=== PATIENT | female | born 1940 | race Caucasian/White ===

== ENCOUNTER → 2017-09-19 10:18 | Outpatient (CLI) | payer MEDICARE, BC, SELFPAY ==
--- NOTE | 2017-09-19 10:19 | STE_ITS ---
Reason For Study: Pulmonary HTN Stress Results Protocol: Carlos Protocol Maximum Predicted HR: 145 bpm Target HR: 123 bpm% Max imum Predicted HR: 103 % DurationHeart Rate Stage (mm:ss) (bpm) BPCom ment Baseline 75 130/86 No Chest Pain Carlos Protocol Stage I 3:00 12 6 160/74No Chest Pain; Mild Dyspnea Carlos Protocol Stage II 3:00 15 0 180/72No Chest Pain; Moderate Dyspnea Recovery 101 128/7 0No Chest Pain Stress Duration: 6:00 mm:ss Maximum Stress HR: 150 bpmM ETS: 7 Baseline Echocardiogram Findings The estimated ejection fraction is 65 %. Stress Echo Wall motion Data Resting WMIntermediate WMStress WM Resting Wall Motion Wall Motion Stress No regional wall motion No regional wall motion abnormalities noted. abnormalities noted. EKG Data Normal intervals are noted. The baseline ECG demonstrates normal sinus rhythm with at rate of _ beats per minute. The patient exercised according to the regular Carlos protocol for a total duration of 6:00. The maximum heart rate attained was 150 beats per minute. This was 103% of maximum predicted heart rate. The patient exercised into stage 3 of the Carlos protocol. No clinical angina was noted. Interpretation Summary The estimated ejection fraction is 65 %. Normal adequate treadmill echocardiogram. Negative for ischemia by EKG and echocardiographic criteria. No anginal symptoms noted. No arrhythmias noted. Appropriate blood pressure response to exercise. Below average exercise capacity for age. Patient developed progression of pulmonary hypertension from 42 mmHg at rest, up to 72 mmHg at peak exercise. Test terminated due to dyspnea. Final LVEF is 75%. No complications. Ordering Physician: Danyel Sands Referring Physician: Danyel Sands Performed By: Mirtha Limon, RDCS, RVT
== END ==
PROVIDERS: Family Provider Family Medicine; PCP Family Medicine; Visit Provider Internal Medicine Cardiovascular Disease
DX: I27.21 Secondary pulmonary arterial hypertension (principal); I36.1 Nonrheumatic tricuspid (valve) insufficiency; I34.0 Nonrheumatic mitral (valve) insufficiency
CPT/HCPCS: 93017; 93350

== ENCOUNTER 2017-12-10 21:18 | Observation (INO) | payer MEDICARE, BC, SELFPAY ==
[2017-12-10 21:19] VITALS: BP 180/92; PULSE 105; RESP 20; TEMP 37.5; O2SAT 98; BMI 21.4
--- NOTE | 2017-12-10 21:21 | EKG12_ITS ---
Test Reason : CP Blood Pressure : / mmHG Vent. Rate : 101 BPM Atrial Rate : 101 BPM P-R Int : 142 ms QRS Dur : 094 ms QT Int : 344 ms P-R-T Axes : 060 020 042 degrees QTc Int : 446 ms Sinus tachycardia Otherwise normal ECG Confirmed by BOB MICHELE, JASWINDER ([id number]), health editor YE LOUIS ([id number]) on 12/12/2017 2:16:38 PM Referred By: JOE Confirmed By:JASWINDER ROJAS MD
[2017-12-10 21:22] VITALS: O2SAT 96
--- NOTE | 2017-12-10 21:22 | ED.RN ---
CALLED FOR EKG PER RN REQUEST, NO OLD EKG'S IN MUSE
--- NOTE | 2017-12-10 21:32 | RAD_ITS ---
STUDY: X-RAY CHEST REASON FOR EXAM: Female, 77 years old. Chest pain TECHNIQUE: AP portable COMPARISON: None. FINDINGS: There is mild interstitial thickening in the lower lobes. There is subsegmental atelectasis or scarring at the left base.. There is no demonstrated pleural abnormality. Normal size heart. Normal mediastinum and wilner. Normal visualized pulmonary arteries. Mildly calcified aortic arch and descending thoracic aorta. Dorsal spine and shoulders demonstrate degenerative changes Normal visualized ribs, and clavicles There is no demonstrated abnormality of the visualized soft tissue structures of the upper abdomen. RAD/Chest 1 View (Portable) IMPRESSION: Minor subsegmental atelectasis or scarring at the left base Electronically Signed: Cheng Prado MD at 21:54 EDT , Service support ,
[2017-12-10 21:40] LABS: Absolute Lymphocyte Count 2.21 X10^3/ul (0.83-4.51); Absolute Neutrophil Count 10.2 X10^3/uL (2.0-7.7); Basophil# 0.07 X10^3/uL; Basophil% 0.5 % (0-1); Eosinophil# 0.33 X10^3/uL; Eosinophils% 2.2 % (0-5); Hematocrit 39.9 % (37-47); Hemoglobin 12.9 g/dl (12.0-15.0); Lymphocyte # 2.21 X10^3/ul (4.0); Mean Corp Hgb Conc 32.3 g/gl (32-36); Mean Corpuscular Hgb 30.4 pg (27.0-32.0); Mean Corpuscular Volume 94.1 fL (81-99); Mean Platelet Vol. 10.8 fl (6.2-12.0); Monocyte# 1.89 X10^3/uL; Monocyte% 12.9 % (0-10); Neutrophil # 10.18 X10^3/uL (2.7-7.7); Neutrophil % 69.3 % (47-70); Platelet Count 302 K/mm3 (150-450); RBC Distribution Width CV 12.7 % (11.6-14.6); RBC Distribution Width SD 43.4 fl (35.1-43.9); Red Blood Count 4.24 M/mm3 (4.2-5.4); White Blood Count 14.7 K/mm3 (4.4-11.0)
[2017-12-10 21:42] LABS: Differential Indicated SCAN CRITERIA MET; POSITIVE COUNT NO; POSITIVE DIFFERENTIAL YES; POSITIVE MORPHOLOGY NO
[2017-12-10 21:53] LABS: Anion Gap 5 (5-15); BUN 18 mg/dL (7-18); BUN/Creat Ratio 22.8 RATIO (10-20); Calcium,Total 9.1 mg/dL (8.5-10.1); Chloride 102 mmol/L (98-107); Creatinine, Serum 0.79 mg/dL (0.55-1.02); EST Glomerular Filtration Rate 75 mL/min (>60); Est Glom Filt Rate - Afr Amer 91 mL/min (>60); Estimated Creatinine Clearance 41.97 ml/min; Glucose 113 mg/dL (74-106); Sodium Level 139 mmol/L (136-145)
[2017-12-10 22:31] LABS: Lipase 113 U/L (73-393)
--- NOTE | 2017-12-10 22:39 | CT_ITS ---
STUDY: CTA CHEST REASON FOR EXAM: Female, 77 years old. Mid and upper chest and left shoulder pain RADIATION DOSAGE (If Supplied By Facility): CTDIvol = ( 8.59 ) mGy, DLP = ( 859.69 ) mGycm TECHNIQUE: The examination was performed with the intravenous administration of 75ml ml of Isovue 300 contrast material. Post-processing of the angiographic images was performed, with multiplanar reformation and 3D reconstruction. Individualized dose optimization techniques were used for this CT. COMPARISON: None. FINDINGS: Normal enhancement of the main pulmonary artery and right and left pulmonary arteries. Normal enhancement of the bilateral peripheral pulmonary arteries. There is no demonstrated pulmonary embolism. Normal thoracic aorta and visualized great vessels. There is no demonstrated aortic dissection. Heart is mildly enlarged and there is a small pericardial effusion. Normal mediastinum. Normal hilar regions. Normal visualized trachea and bronchi. The lungs are well expanded. There is mild generalized interstitial thickening. There is mild bibasilar atelectasis.. Normal pleura. Normal chest wall structures. Dorsal spine demonstrates moderate spondylosis Normal visualized upper abdomen. CT/CTA Chest W/WO Contrast IMPRESSION: Mild bilateral lower lobe atelectasis.. No evidence for pulmonary embolus aortic aneurysm periaortic leak or dissection Electronically Signed: Cheng Prado MD at 23:50 EDT , Service support ,
--- NOTE | 2017-12-10 22:40 | CT_ITS ---
STUDY: CT ABDOMEN AND PELVIS WITH CONTRAST REASON FOR EXAM: Female, 77 years old. Mid and upper chest and left shoulder pain. Shortness of breath. History of splenic blood clot. RADIATION DOSAGE (If Supplied By Facility): CTDIvol = ( 8.59 ) mGy, DLP = ( 859.69 ) mGycm TECHNIQUE: Transaxial images were obtained from the dome of the diaphragm to the symphysis pubis without oral contrast. 75ml ml of Isovue 370 contrast was administered. Sagittal and coronal images were reconstructed. Individualized dose optimization techniques were used for this CT. COMPARISON: April 05, 2016. MRI abdomen April 07, 2016. Chest x-ray December 10, 2017. FINDINGS: Bilateral lower lobe linear subsegmental atelectasis or fibrosis. Mild cardiomegaly. No pericardial effusion. Normal liver. Normal gallbladder and extrahepatic biliary system. Normal spleen. Previously noted low attenuation suggestive of infarction medial aspect of the spleen has resolved. Normal pancreas. Normal bilateral adrenal glands. Normal right kidney. Normal left kidney. Normal visualized stomach. Normal small intestine. Normal colon. The appendix is well visualized and appears normal. There is atherosclerotic calcification of the abdominal aorta, without a demonstrated aneurysm. Normal inferior vena cava. Normal retroperitoneum. No intra-abdominal free air. Normal urinary bladder. There is absence of the uterus consistent with a prior hysterectomy. No adnexal masses seen. Normal abdominal wall. Multilevel degenerative changes of the lumbar spine. CT/Abdomen/Pelvis W IV Cont ONLY IMPRESSION: No acute findings in the abdomen or pelvis. No evidence of bowel obstruction. Normal appendix. Resolution of previously noted splenic infarction. Mild cardiomegaly. Additional nonemergent findings as above. Electronically Signed: Zachary Velasquez MD at 0:00 EDT , Service support ,
[2017-12-10 22:41] LABS: AST(SGOT) 16 U/L (15-37); Alanine Aminotransfer ALT/SGPT 27 U/L (13-56); Alkaline Phosphatase 109 U/L (45-117); Globulin 3.8 g/dL (2.2-4.2); Protein, Total 7.8 g/dL (6.4-8.2)
--- NOTE | 2017-12-10 23:42 | ED.VISSUMM ---
- ER Visit Summary Date of Service: 12/10/17 Chief Complaint: Chest pain History of Present Illness: The patient is a 77 F who presents with chest pain. This began about 2 hours prior to presentation while at rest. She describes it as a severe pressure-like pain. She currently rates it as 6 out of 10. It is located in the left lower chest and is worse with deep inspiration. She also feels short of breath. She states 3 days ago she had palpitations which resolved and have not recurred. She is also been having some pain in the left back side of her neck down towards her shoulder over the last 3 days but is uncertain if this is related. She believes it is related to having slept wrong and that that is due to a muscular etiology. 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 No history of dysrhythmia diabetes hypertension hyperlipidemia. She is not a smoker. Physical Examination: Heart rate 105 pulse ox 96% on 2 L nasal cannula blood pressure 180/92 Moist mucous membranes Heart regular rhythm slightly tachycardic Lungs are clear Abdomen soft and nontender Extremities nontender no edema 2+ radial pulses Alert Test Results: EKG shows sinus rhythm at a rate of 101. Labs notable for white blood cell count 14.7. Glucose 113. Hepatic function lipase normal. Troponin negative. Chest x-ray shows atelectasis or scarring at the left lung base. PA of the chest shows no evidence of pulmonary embolism or aortic dissection. Lower lobe atelectasis is noted. CT of the abdomen with IV contrast shows no acute findings, resolution of splenic infarct. Emergency Department Course and Treatment: She was initially given aspirin. She continued pain and was given morphine and Zofran. She does have a white count of 14.7 and slightly tachycardic but has no pneumonia on imaging and denies infectious symptoms such as fevers cough congestion rhinorrhea. A CTA of the chest and CT the abdomen was obtained given patient's prior history of splenic infarct that was concern for possible recurrent splenic pathology or possibly lower lung pulmonary embolism. These scans are unremarkable. The patient's heart score is 3 and SAMMI risk score is 2. I do believe the patient should be admitted for further cardiac workup. Treatment Plan: [] Disposition: Admit Impression: Chest pain This note was generated with [employer] software. It may contain incorrect words, spelling, and punctuation that were not noted in review of the chart prior to signing ED Disposition - Plan for ED Patient: Chief Complaint: Chest Pain Referrals: Vimal Merida MD [Primary Care Provider] -
[2017-12-10 23:48] VITALS: BP 109/52; PULSE 85; RESP 21; O2SAT 94
[2017-12-11] VITALS (8 sets, daily range): BP systolic 102–124; BP diastolic 53–68; PULSE 87–100; RESP 16–18; TEMP 36.8–37.6; O2SAT 91–100; BMI 21.6
[2017-12-11] MEDS: Morphine 4 MG/ML Syringe IV (00:03)
[2017-12-11] MEDS: Ondansetron 4 MG/2 ML Vial IV (00:03)
--- NOTE | 2017-12-11 00:41 | PCM.HP.STD ---
Problem List (1) Chest pain Status: Acute (2) Leukocytosis Status: Acute History of Present Illness Date of Admission: 12/11/17 The patient is a 77 year old F with a significant history of splenic infarcts who presents because of progressively worsening substernal chest pain that started an hour before her presentation to the emergency department. She rates her chest pain as 6 out of 10 in severity. Her chest pain radiates to her left shoulder. She describes her chest pain as continuous pressure. Also she has had neck pain for about 1 week. But on the day of admission her neck pain worsened. Head chest pain increases with breathing. Also in the last 3 days she has noticed her heart racing. She denies any nausea or diaphoresis. [] Past Medical History Past Medical History (Chronic Problems): Chronic Problems (Last Reviewed 12/11/17 @ 00:47 by Erik Carnes MD) Aortic valve cusp abnormality (Chronic) Fine, fibrinous mobile material noted on aortic side of right coronary cusp. No fibroelastoma or vegetation noted. per BLAKE 04/07/2016 Nonrheumatic mitral (valve) insufficiency (Chronic) Non-rheumatic tricuspid valve insufficiency (Chronic) Secondary pulmonary arterial hypertension (Chronic) Pulmonary nodule (Chronic) Splenic infarct (Chronic) Medical History: Medical History (Last Reviewed 12/11/17 @ 00:47 by Erik Carnes MD) Aortic valve cusp abnormality (Chronic) Q23.8 Fine, fibrinous mobile material noted on aortic side of right coronary cusp. No fibroelastoma or vegetation noted. per BLAKE 04/07/2016 Nonrheumatic mitral (valve) insufficiency (Chronic) I34.0 Non-rheumatic tricuspid valve insufficiency (Chronic) I36.1 Secondary pulmonary arterial hypertension (Chronic) I27.21 Pulmonary nodule (Chronic) R91.1 Splenic infarct (Chronic) D73.5 Breast cancer C50.919 Allergies No Known Allergies Allergy (Verified 12/10/17 21:23) Home Medications: Ambulatory Orders Medication Instructions Recorded Calcium Carbonate [Calcium] 600 mg PO DAILY 04/05/16 Cholecalciferol (VIT D3) [Vitamin 1,000 unit PO DAILY 04/05/16 D3] Multivitamin [Daily Multiple 1 each PO DAILY 04/06/16 Vitamin] Aspirin [Aspirin, Baby] 81 mg PO DAILY@0800 #30 tab.chew 04/08/16 magnesium oxide 250 mg tablet 250 mg PO QHS tab 08/06/17 Surgical History: Surgical History (Last Reviewed 12/11/17 @ 00:48 by Erik Carnes MD) History of hysterectomy Z90.710 History of lumpectomy of left breast Z98.890 Surgical History: hysterectomy, - - lumpectemy breast cancer in 2010 in [place] Lives: Spouse/ Significant Other Smoking Status: Never smoker Tobacco Use: Non-smoker Alcohol: Rare Drugs: None - *Family History Paternal Family History: Family History (Last Reviewed 08/06/17 @ 13:42 by Linda Brock) Brother Colon cancer Sister Heart disease History Items: - - lung nodule in father. Sibling Family History: Family History (Last Reviewed 08/06/17 @ 13:42 by Linda Brock) Brother Colon cancer Sister Heart disease History Items: - - sister with pacemaker,lung cancer brother. Review of Systems Constitutional: Denies: Anorexia, Malaise Eyes: Denies: Blurred vision, Pain HEENT: Denies: Head Aches, Sinus Congestion, Sinus Drainage Cardiovascular: Reports: Chest Pain Respiratory: Denies: Cough, Shortness of breath at rest, Sputum production Gastrointestinal: Denies: Abdominal Pain, Nausea, Vomiting Genitourinary: Denies: Dysuria Musculoskeletal: Reports: Neck Pain, Shoulder Pain Skin: Denies: Rash, Wounds Neurological: Reports: Balance problems Psychiatric: Reports: Anxiety Hematologic/ Lymphatic: Denies: Easy Bruising, Easy Bleeding VTE Information - Inpt Only VTE Present on Admission: No VTE Mechan Device Prophylaxis: None VTE Pharm Prophylaxis ordered?: Yes Patient Problems: Active and Suspected Problems (Last Reviewed 12/11/17 @ 00:47 by Erik Carnes MD) Chest pain (Acute) Leukocytosis (Acute) - Physical Exam General: Alert, Oriented x3, Cooperative HEENT: Atraumatic, PERRLA, EOMI, Normocephalic Neck: Supple, No JVD, Negative Carotid Bruits Lungs: Clear to auscultation, Normal air movement Cardiovascular: Normal S1, Normal S2, Tachycardic, - - Nontender Abdomen: Bowel Sounds Present, Soft, Non Tender Extremities: No edema, Capillary Refill Less than 3 Seconds Skin: No rashes, No breakdown Musculoskeletal: No Tenderness to Palpation of Joints or Extremities Neurological: Cranial nerves II-XII grossly intact Psych/Mental Status: Anxious Vital Signs Temp Pulse Resp BP Pulse Ox 99.5 F H 91 18 120/56 L 100 12/10/17 21:19 12/11/17 00:07 12/11/17 00:07 12/11/17 00:07 12/11/17 00:07 Oxygen Flow Rate (L/min) 2 Oxygen Delivery Method Nasal Cannula Weight: 56.699 kg Body Mass Index (BMI) 21.4 Laboratory Tests Past 24 Hrs 12/10/17 12/10/17 12/10/17 21:25 21:25 21:25 WBC 14.7 H RBC 4.24 Hgb 12.9 Hct 39.9 MCV 94.1 MCH 30.4 MCHC 32.3 RDW 12.7 RDW Differential 43.4 Plt Count 302 MPV 10.8 Immature Gran % (Auto) 0.100 Neut % (Auto) 69.3 Lymph % (Auto) 15.0 L [place] % (Auto) 12.9 H Eos % (Auto) 2.2 Baso % (Auto) 0.5 Absolute Neuts (auto) 10.2 H Absolute Lymphs (auto) 2.21 Total Counted Not Reportable Differential Comment Diff Path Review May foll Sodium 139 Potassium 4.0 Chloride 102 Carbon Dioxide 32.0 Anion Gap 5 BUN 18 Creatinine 0.79 Estim Creat Clear Calc 41.97 Est GFR (MDRD) Af Amer 91 Est GFR (MDRD) Non-Af 75 BUN/Creatinine Ratio 22.8 H Glucose 113 H Calcium 9.1 Total Bilirubin 0.20 Direct Bilirubin 0.10 AST 16 ALT 27 Alkaline Phosphatase 109 Troponin I < 0.015 Total Protein 7.8 Albumin 4.0 Globulin 3.8 Lipase 12/10/17 21:25 WBC RBC Hgb Hct MCV MCH MCHC RDW RDW Differential Plt Count MPV Immature Gran % (Auto) Neut % (Auto) Lymph % (Auto) [place] % (Auto) Eos % (Auto) Baso % (Auto) Absolute Neuts (auto) Absolute Lymphs (auto) Total Counted Differential Comment Diff Path Review Sodium Potassium Chloride Carbon Dioxide Anion Gap BUN Creatinine Estim Creat Clear Calc Est GFR (MDRD) Af Amer Est GFR (MDRD) Non-Af BUN/Creatinine Ratio Glucose Calcium Total Bilirubin Direct Bilirubin AST ALT Alkaline Phosphatase Troponin I Total Protein Albumin Globulin Lipase 113 Assessment/Plan All Active Problems (Last Reviewed 12/11/17 @ 00:47 by Erik Carnes MD) Chest pain (Acute) Leukocytosis (Acute) The patient is a 77 year old F with a significant history of splenic infarcts who presents because of progressively worsening substernal chest pain that started an hour before her presentation to the emergency department. Chest pain His SAMMI score is at 2 (aspirin use, age more than 65) Because of a history of splenic infarcts CT scan of the abdomen and the chest were obtained. However both CT scan was unremarkable. Admit to PCU Due to her progressively worsening chest pain we will order nuclear stress test. Aspirin 325 mg?1 Aspirin 81 mg daily, home dose continued Morphine as needed Nitroglycerin as needed Beta-blockers ordered. Series of cardiac enzymes ordered. Leukocytosis Likely reactive Repeat CBC in a.m. DVT prophylaxis subcutaneous heparin. Code Visit Inpatient E&M: 39522 Init Hosp L2
--- NOTE | 2017-12-11 00:59 | NURSING ---
Called ED charge nurse Kenny, asked Kenny to have ED draw 2nd trop before sending to floor.
[2017-12-11] MEDS: Aspirin 81 MG TAB.CHEW 324 MG PO (02:11)
[2017-12-11 05:36] LABS: Absolute Lymphocyte Count 0.55 X10^3/ul (0.83-4.51); Basophil# 0.04 X10^3/uL; Basophil% 0.2 % (0-1); Hemoglobin 11.6 g/dl (12.0-15.0); Lymphocyte # 0.55 X10^3/ul (4.0); Lymphocyte % 2.4 % (19-41); Mean Corp Hgb Conc 33.1 g/gl (32-36); Mean Corpuscular Hgb 31.4 pg (27.0-32.0); Mean Corpuscular Volume 94.6 fL (81-99); Monocyte# 3.08 X10^3/uL; Monocyte% 13.6 % (0-10); Neutrophil # 18.95 X10^3/uL (2.7-7.7); Neutrophil % 83.5 % (47-70); Platelet Count 270 K/mm3 (150-450); RBC Distribution Width CV 12.4 % (11.6-14.6); RBC Distribution Width SD 41.6 fl (35.1-43.9); White Blood Count 22.7 K/mm3 (4.4-11.0)
[2017-12-11 05:38] LABS: International Normalized Ratio 1.1; Partial Thromboplast Time 35.4 Seconds (24.1-36.2); Prothrombin Time (Protime)PT. 14.5 SECONDS (11.7-14.9)
[2017-12-11 05:51] LABS: POSITIVE COUNT NO; POSITIVE DIFFERENTIAL YES; POSITIVE MORPHOLOGY NO
[2017-12-11 05:52] LABS: Differential Indicated SCAN CRITERIA MET
[2017-12-11 05:57] LABS: AST(SGOT) 38 U/L (15-37); Alanine Aminotransfer ALT/SGPT 44 U/L (13-56); Albumin, Serum 3.3 g/dL (3.2-5.0); Alkaline Phosphatase 95 U/L (45-117); Anion Gap 6 (5-15); BUN 18 mg/dL (7-18); BUN/Creat Ratio 24.9 RATIO (10-20); Bilirubin, Direct 0.17 mg/dL (0.00-0.30); Calcium,Total 8.5 mg/dL (8.5-10.1); Chloride 104 mmol/L (98-107); Creatinine, Serum 0.72 mg/dL (0.55-1.02); EST Glomerular Filtration Rate 83 mL/min (>60); Est Glom Filt Rate - Afr Amer 101 mL/min (>60); Estimated Creatinine Clearance 41.97 ml/min; Globulin 3.3 g/dL (2.2-4.2); Glucose 147 mg/dL (74-106); Potassium 4.5 mmol/L (3.5-5.1); Protein, Total 6.6 g/dL (6.4-8.2); Sodium Level 141 mmol/L (136-145); Thyroid Stim Hormone (TSH) 1.09 uIU/mL (0.358-3.74)
[2017-12-11] MEDS: Atorvastatin Calcium 40 MG Tablet PO (06:11)
--- NOTE | 2017-12-11 07:00 | EKG12_ITS ---
Test Reason : CP ADMIT Blood Pressure : / mmHG Vent. Rate : 094 BPM Atrial Rate : 094 BPM P-R Int : 140 ms QRS Dur : 088 ms QT Int : 362 ms P-R-T Axes : 074 029 060 degrees QTc Int : 452 ms Normal sinus rhythm Normal ECG No previous ECGs available Confirmed by BOB MICHELE, JASWINDER ([id number]), publishing editor YE LOUIS ([id number]) on 12/14/2017 1:59:41 PM Referred By: DR ALBERT Confirmed By:JASWINDER ROJAS MD
[2017-12-11] MEDS: Calcium Carbonate 500 MG Tablet PO (09:04)
[2017-12-11] MEDS: Metoprolol Tartrate 25 MG Tablet 12.5 MG PO (09:04)
[2017-12-11] MEDS: Multivitamins,Therapeutic Tablet 1 TABLET PO (09:05)
--- NOTE | 2017-12-11 09:16 | STRESSREP ---
Stress Test Report Pharmacologic myocardial perfusion stress test. 77-year-old lady with history of chest pain. Stress protocol: Resting EKG demonstrates normal sinus rhythm with a rate of 99 bpm normal intervals and noted resting blood pressure is 110/50 mmHg. 0.4 mg regadenoson was infused per usual protocol followed Intravenous saline flush injection continuous EKG monitoring was performed. The maximum heart rate attained was 114 bpm which was 78% of maximum predicted heart rate the maximum workload was 1 metabolic equivalent. At rest there were no ST or T-wave changes noted suggest ischemia peak infusion no ST or T-wave changes were noted suggest ischemia. No clinical angina was noted. Myocardial perfusion protocol. 11.2 mCi of technetium 99m sestamibi was injected at rest. 0.4 mg regadenoson was infused per usual protocol peak infusion 32.4 mCi of technetium 99m sestamibi was injected stress images were obtained stress and rest images were reconstructed and compared in the short axis vertical long horizontal long axis. Gated images were also obtained. Perfusion SPECT analysis: Review of the stress images demonstrate normal uptake of tracer noted in all areas of the myocardium. The resting images similarly demonstrate normal uptake of tracer noted in all areas of the myocardium. Gated SPECT analysis: The gated ejection fraction is noted to be hypercontractile. Conclusion: Normal pharmacologic myocardial perfusion stress test.
[2017-12-11] MEDS: Ibuprofen 600 MG Tablet PO (15:17)
[2017-12-11 15:38] LABS: Pathologist Review Reviewed
--- NOTE | 2017-12-11 16:43 | DCINST_ITS ---
- Discharge Diagnoses Current Active Problems: Current Active and Chronic Problems (Last Reviewed 12/11/17 @ 00:47 by Erik Carnes MD) Chest pain (Acute) Leukocytosis (Acute) You will use the following diet at home:: Other - Resume previous diet Your food should be the consistency of: Regular, Mechanical soft (ground) Discharge Activity: Return to Normal Activity May resume sexual activity in: No Restrictions Call your doctor if you observe: Fever of 101 or Higher, Shortness of breath, Dizziness, Fainting spells Additional Instructions: Everything was normal. the stress test is negative and your heart squeezes normally. There has been no problem with the rhythm of your heart. I think your chest discomfort came from a rib that was out of place. The pain made you feel very anxious about possibly having a heart attack and this led to tightening of the muscles in your chest and a feeling that she could not get a deep breath. This is not unusual because people are fearful that they are having a heart attack with any kind of chest pain, especially if they have had family members with heart disease. Everything looks good and the discomfort in your chest that I was able to palpate went away with adjusting the rib. I have given you a prescription for a muscle relaxer to take should this recur. It can make you sleepy so do not plan on driving or going out to you know how you react to this medication. Your white blood cell count was elevated at admission and this is likely secondary to stress because it will increase the white blood cell count. It also increases your heart rate and her blood pressure. I think you should follow up with in 5-7 days to have a repeat blood count done. If you develop fevers or shaking chills you should come back to the hospital or call Dr. Merida's office. Allergies/Adverse Reactions: Allergies No Known Allergies Allergy (Verified 12/10/17 21:23) Medications to take at Discharge Calcium Carbonate [Calcium] 600 mg PO DAILY 04/05/16 Cholecalciferol (VIT D3) [Vitamin D3] 1,000 unit PO DAILY 04/05/16 Multivitamin [Daily Multiple Vitamin] 1 each PO DAILY 04/06/16 Aspirin [Aspirin, Baby] 81 mg PO DAILY@0800 #30 tab.chew 04/08/16 magnesium oxide 250 mg tablet 250 mg PO QHS tab 08/06/17 Cyclobenzaprine [Flexeril] 5 mg PO Q8H PRN PRN #10 tab 12/11/17 The following prescriptions were given: Cyclobenzaprine [Flexeril] 5 mg PO Q8H PRN PRN #10 tab PRN Reason: muscles spasms Primary Care Physician: Vimal Merida MD [Primary Care Provider] - Please follow up with your Primary Care Physician in: 5-7 days Test Results: Test results from this visit will be discussed in further detail at your follow- up appointment, if applicable. Proposed Discharge Date: 12/11/17
--- NOTE | 2017-12-18 10:16 | PCM.DC.SUM ---
Discharge Date and Diagnosis Date of Admission: 12/11/17 Date of Discharge: 12/11/17 - Primary Discharge Diagnosis Chest pain-noncardiac Palpitations - Secondary Discharge Diagnosis Chronic Problems (Last Reviewed 12/11/17 @ 00:47 by Erik Carnes MD) Aortic valve cusp abnormality (Chronic) Fine, fibrinous mobile material noted on aortic side of right coronary cusp. No fibroelastoma or vegetation noted. per BLAKE 04/07/2016 Nonrheumatic mitral (valve) insufficiency (Chronic) Non-rheumatic tricuspid valve insufficiency (Chronic) Secondary pulmonary arterial hypertension (Chronic) Pulmonary nodule (Chronic) Splenic infarct (Chronic) Hospital Course and Treatment Imaging Results: Clinical Impression(s) from Imaging Studies Chest X-Ray 12/10/17 21:32 IMPRESSION: Minor subsegmental atelectasis or scarring at the left base Electronically Signed: Cheng Prado MD at 21:54 EDT , Service support , Chest CTA 12/10/17 22:39 IMPRESSION: Mild bilateral lower lobe atelectasis.. No evidence for pulmonary embolus aortic aneurysm periaortic leak or dissection Electronically Signed: Cheng Prado MD at 23:50 EDT , Service support , Abdomen/Pelvis CT 12/10/17 22:40 IMPRESSION: No acute findings in the abdomen or pelvis. No evidence of bowel obstruction. Normal appendix. Resolution of previously noted splenic infarction. Mild cardiomegaly. Additional nonemergent findings as above. Electronically Signed: Zachary Velasquez MD at 0:00 EDT , Service support , None Operations: None Procedures: Stress test Summary of Care Provided: The patient is a 77 year old F with a past medical history of nonrheumatic mitral valve insufficiency, nonrheumatic tricuspid valve insufficiency, aortic valve abnormality, secondary pulmonary arterial hypertension, pulmonary nodule, breast cancer and prior splenic infarct who presented to the emergency department at [facility] on 12/11/2017 complaining of chest pain. EKG in the emergency room showed sinus tachycardia with no significant ST or T-wave changes. Chest x-ray revealed possible atelectasis in the bases. CTA of the chest was negative for pulmonary emboli or arterial dissection. CT of the abdomen and pelvis showed no acute findings and there had been resolution of previously noted splenic infarction. Troponin was less than 0.015. She was admitted to the hospital and serial cardiac enzymes were negative. A pharmacologic nuclear stress test was done and was negative for ischemia. The gated ejection fraction was noted to be hypercontractile. She had no significant ectopy or dysrhythmia on telemetry. On osteopathic physical examination her pain was reproducible and she was noted to have a rib lesion. Osteopathic manipulation was performed with relief of the pain. She did have an elevation in white blood cell count however she was afebrile and asymptomatic. I suspect this is secondary to extreme anxiety with cortisol release. She was instructed to follow-up with Dr. Merida in the office in 5-7 days and have a repeat CBC. If she develops fevers or shaking chills she will come back to the emergency room or call Dr. Merida's office. Discharge Activity: Return to Normal Activity May resume sexual activity in: No Restrictions Call your doctor if you observe: Fever of 101 or Higher, Shortness of breath, Dizziness, Fainting spells Home Medications: Medications to take at Discharge Calcium Carbonate [Calcium] 600 mg PO DAILY 04/05/16 Cholecalciferol (VIT D3) [Vitamin D3] 1,000 unit PO DAILY 04/05/16 Multivitamin [Daily Multiple Vitamin] 1 each PO DAILY 04/06/16 Aspirin [Aspirin, Baby] 81 mg PO DAILY@0800 #30 tab.chew 04/08/16 magnesium oxide 250 mg tablet 250 mg PO QHS tab 08/06/17 Primary Care Physician: Vimal Merida MD [Primary Care Provider] - Please follow up with your Primary Care Physician in: 5-7 days Disposition: Home Minutes spent on discharge:: 25 Patient Condition:: Good Medical Necessity - Tobacco Use Smoking Status: Never smoker Tobacco Use: Non-smoker Meaningful Use Info Meaningful Use Diagnoses (Choose all that apply): None applicable Code Visit OBSV E&M: 98393 Observ/hosp same date L2
--- NOTE | 2017-12-18 10:25 | DS.PCM_ITS ---
Discharge Date and Diagnosis Date of Admission: 12/11/17 Date of Discharge: 12/11/17 - Primary Discharge Diagnosis Chest pain-noncardiac Palpitations - Secondary Discharge Diagnosis Chronic Problems (Last Reviewed 12/11/17 @ 00:47 by Erik Carnes MD) Aortic valve cusp abnormality (Chronic) Fine, fibrinous mobile material noted on aortic side of right coronary cusp. No fibroelastoma or vegetation noted. per BLAKE 04/07/2016 Nonrheumatic mitral (valve) insufficiency (Chronic) Non-rheumatic tricuspid valve insufficiency (Chronic) Secondary pulmonary arterial hypertension (Chronic) Pulmonary nodule (Chronic) Splenic infarct (Chronic) Hospital Course and Treatment Imaging Results: Clinical Impression(s) from Imaging Studies Chest X-Ray 12/10/17 21:32 IMPRESSION: Minor subsegmental atelectasis or scarring at the left base Electronically Signed: Cheng Prado MD at 21:54 EDT , Service support , Chest CTA 12/10/17 22:39 IMPRESSION: Mild bilateral lower lobe atelectasis.. No evidence for pulmonary embolus aortic aneurysm periaortic leak or dissection Electronically Signed: Cheng Prado MD at 23:50 EDT , Service support , Abdomen/Pelvis CT 12/10/17 22:40 IMPRESSION: No acute findings in the abdomen or pelvis. No evidence of bowel obstruction. Normal appendix. Resolution of previously noted splenic infarction. Mild cardiomegaly. Additional nonemergent findings as above. Electronically Signed: Zachary Velasquez MD at 0:00 EDT , Service support , None Operations: None Procedures: Stress test Summary of Care Provided: The patient is a 77 year old F with a past medical history of nonrheumatic mitral valve insufficiency, nonrheumatic tricuspid valve insufficiency, aortic valve abnormality, secondary pulmonary arterial hypertension, pulmonary nodule, breast cancer and prior splenic infarct who presented to the emergency department at [facility] on 12/11/2017 complaining of chest pain. EKG in the emergency room showed sinus tachycardia with no significant ST or T-wave changes. Chest x-ray revealed possible atelectasis in the bases. CTA of the chest was negative for pulmonary emboli or arterial dissection. CT of the abdomen and pelvis showed no acute findings and there had been resolution of previously noted splenic infarction. Troponin was less than 0.015. She was admitted to the hospital and serial cardiac enzymes were negative. A pharmacologic nuclear stress test was done and was negative for ischemia. The gated ejection fraction was noted to be hypercontractile. She had no significant ectopy or dysrhythmia on telemetry. On osteopathic physical examination her pain was reproducible and she was noted to have a rib lesion. Osteopathic manipulation was performed with relief of the pain. She did have an elevation in white blood cell count however she was afebrile and asymptomatic. I suspect this is secondary to extreme anxiety with cortisol release. She was instructed to follow-up with Dr. Merida in the office in 5-7 days and have a repeat CBC. If she develops fevers or shaking chills she will come back to the emergency room or call Dr. Merida's office. Discharge Activity: Return to Normal Activity May resume sexual activity in: No Restrictions Call your doctor if you observe: Fever of 101 or Higher, Shortness of breath, Dizziness, Fainting spells Home Medications: Medications to take at Discharge Calcium Carbonate [Calcium] 600 mg PO DAILY 04/05/16 Cholecalciferol (VIT D3) [Vitamin D3] 1,000 unit PO DAILY 04/05/16 Multivitamin [Daily Multiple Vitamin] 1 each PO DAILY 04/06/16 Aspirin [Aspirin, Baby] 81 mg PO DAILY@0800 #30 tab.chew 04/08/16 magnesium oxide 250 mg tablet 250 mg PO QHS tab 08/06/17 Primary Care Physician: Vimal Merida MD [Primary Care Provider] - Please follow up with your Primary Care Physician in: 5-7 days Disposition: Home Minutes spent on discharge:: 25 Patient Condition:: Good Medical Necessity - Tobacco Use Smoking Status: Never smoker Tobacco Use: Non-smoker Meaningful Use Info Meaningful Use Diagnoses (Choose all that apply): None applicable Code Visit OBSV E&M: 51566 Observ/hosp same date L2
== END 2017-12-11 16:43 | disposition home or self-care (01) ==
LOC: ED 22:31 → PCU 12-11 00:52
PROVIDERS: Admitting Provider Hospitalist; Emergency Provider Emergency Medicine; Family Provider Family Medicine; PCP Family Medicine; Visit Provider Internal Medicine
DX: R07.89 Other chest pain (principal); R00.2 Palpitations; R91.1 Solitary pulmonary nodule; I34.0 Nonrheumatic mitral (valve) insufficiency; I36.1 Nonrheumatic tricuspid (valve) insufficiency; I27.21 Secondary pulmonary arterial hypertension; Z85.3 Personal history of malignant neoplasm of breast; Z79.82 Long term (current) use of aspirin; R00.0 Tachycardia, unspecified; R06.02 Shortness of breath; D72.829 Elevated white blood cell count, unspecified; M54.2 Cervicalgia
CPT/HCPCS: 36415; 71045; 71275; 74177; 78452; 80048; 80076; 83690; 84443; 84484; 85025; 85610; 85730; 93005; 93017; 96374; 96375; 97162; 97165; 99218; 99283; A9500; Q9967; A4216; G0378; J2405; J2785

== ENCOUNTER 2017-12-17 23:51 | Observation (INO) | payer MEDICARE, BC, SELFPAY ==
[2017-12-17 23:52] VITALS: BP 125/64; PULSE 95; RESP 22; TEMP 36.7; O2SAT 96; BMI 22.4
[2017-12-18] VITALS (9 sets, daily range): BP systolic 107–118; BP diastolic 51–64; PULSE 85–98; RESP 16–18; TEMP 37; O2SAT 95–98; BMI 21.3
--- NOTE | 2017-12-18 00:23 | EKG12_ITS ---
Test Reason : CP Blood Pressure : / mmHG Vent. Rate : 091 BPM Atrial Rate : 091 BPM P-R Int : 142 ms QRS Dur : 096 ms QT Int : 386 ms P-R-T Axes : 062 001 028 degrees QTc Int : 474 ms Normal sinus rhythm Incomplete right bundle branch block Confirmed by LISANDRO MICHELE, SUBHASH ([id number]), food editor YE LOUIS ([id number]) on 12/21/2017 1:13:08 PM Referred By: JUDD Confirmed By:SUBHASH MCMAHON MD
[2017-12-18] MEDS: Aspirin 81 MG TAB.CHEW 324 MG PO (00:47)
[2017-12-18 00:50] LABS: Absolute Lymphocyte Count 2.21 X10^3/ul (0.83-4.51); Absolute Neutrophil Count 17.3 X10^3/uL (2.0-7.7); Basophil# 0.06 X10^3/uL; Basophil% 0.3 % (0-1); Differential Indicated SCAN CRITERIA MET; Eosinophil# 0.07 X10^3/uL; Eosinophils% 0.3 % (0-5); Hematocrit 33.1 % (37-47); Hemoglobin 10.7 g/dl (12.0-15.0); Lymphocyte # 2.21 X10^3/ul (4.0); Lymphocyte % 10.3 % (19-41); Mean Corp Hgb Conc 32.3 g/gl (32-36); Mean Corpuscular Hgb 30.2 pg (27.0-32.0); Mean Corpuscular Volume 93.5 fL (81-99); Mean Platelet Vol. 10.2 fl (6.2-12.0); Monocyte# 1.67 X10^3/uL; Monocyte% 7.8 % (0-10); Neutrophil # 17.29 X10^3/uL (2.7-7.7); POSITIVE COUNT NO; POSITIVE DIFFERENTIAL YES; POSITIVE MORPHOLOGY YES; Platelet Count 349 K/mm3 (150-450); RBC Distribution Width CV 12.3 % (11.6-14.6); RBC Distribution Width SD 41.6 fl (35.1-43.9); Red Blood Count 3.54 M/mm3 (4.2-5.4); White Blood Count 21.4 K/mm3 (4.4-11.0)
--- NOTE | 2017-12-18 00:55 | RAD_ITS ---
STUDY: X-RAY CHEST REASON FOR EXAM: Female, 77 years old. Chest pain TECHNIQUE: PA and lateral views of the chest. COMPARISON: 12/10/2017 FINDINGS: Coarsened prominence of interstitial lung markings at the lung bases, unchanged from prior imaging. No confluent airspace opacity. No pleural effusion or pneumothorax. Borderline cardiomegaly, unchanged. Normal mediastinum and wilner. Normal visualized pulmonary arteries. Normal visualized aortic arch and descending thoracic aorta. There are diffuse degenerative changes of the visualized thoracic spine. Normal visualized ribs, clavicles, and shoulders. There is no demonstrated abnormality of the visualized soft tissue structures of the upper abdomen. RAD/Chest PA and Lateral IMPRESSION: Chronic bibasilar interstitial change with no evidence of acute cardiopulmonary disease. Electronically Signed: Amaury Miller MD at 1:24 EDT Tel , Service support ,
[2017-12-18 01:04] LABS: Anion Gap 8 (5-15); BUN 18 mg/dL (7-18); BUN/Creat Ratio 25.4 RATIO (10-20); Calcium,Total 8.7 mg/dL (8.5-10.1); Chloride 100 mmol/L (98-107); Creatinine, Serum 0.71 mg/dL (0.55-1.02); EST Glomerular Filtration Rate 85 mL/min (>60); Est Glom Filt Rate - Afr Amer 103 mL/min (>60); Estimated Creatinine Clearance 41.97 ml/min; Glucose 159 mg/dL (74-106); Potassium 3.9 mmol/L (3.5-5.1); Sodium Level 136 mmol/L (136-145)
[2017-12-18 01:06] LABS: Differential Comment SCANNED
--- NOTE | 2017-12-18 01:39 | ED.VISSUMM ---
- ER Visit Summary Date of Service: 12/18/17 Chief Complaint: [] Chest pain with syncope History of Present Illness: The patient is a 77 F patient stated she has had some chest pain mainly for the last 5 days. Gradual onset intermittent sharp pain in the center of her chest. It is movement related and deep breathing related. She had nausea with one episode of emesis after she passed out tonight. She said she was on the toilet and felt some discomfort in her chest that was quite severe. She thinks the pain caused her to pass out. Her found her next to the toilet on the floor. He said she was unconscious for 3 minutes and she woke and was sweaty and had one episode of emesis. Currently her symptoms are resolved. She states when she moves a certain way though she can reproduce her pain. She is on aspirin. She was recently admitted for similar chest pain and had a stress test that was negative. She had negative enzymes as well. 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 Her lipase was negative. Physical Examination: [] Vital signs reviewed General: Well-nourished well-developed Head: Normocephalic atraumatic Eyes: Pupils equal round and reactive to light extraocular movements intact ENT: TMs clear no hemotympanum no trauma Neck: Nontender full range of motion Cardiovascular: Regular rate rhythm no murmurs normal S1-S2 Respiratory: No distress clear to auscultation bilaterally chest with reproducible tenderness lateral to the sternum Abdomen: Soft nontender nondistended normal bowel sounds no masses Back: Nontender no CVA tenderness Extremities: Nontender active range of motion ?4 extremities no trauma Skin: Normal color no trauma Neuro alert oriented cranial nerves II through XII intact normal strength sensation reflexes Test Results: [] Emergency Department Course and Treatment: [] EKG shows sinus rhythm at a rate of 91 without ischemia or arrhythmia. Cardiac enzymes troponin are negative. CBC shows a white count of 21.4. This is slightly below the 22,000 she had during her admission. Initially she was 14,000. They felt this was reactive nature. She denies any infectious symptoms. Chest x-ray shows nothing acute. Patient given full dose oral aspirin. I do not think she needs a recurrent CT of her chest. She had this on her last admission that showed nothing acute. I have a low suspicion for new splenic infarct. This does sound to be musculoskeletal. She did have a manipulation in the hospital which helped for couple days but then her pain returned. The most concerning thing about this visit is her new onset syncope. She did state one time remotely she had syncope secondary to pain. She thinks it was pain related phenomenon. Nonetheless I feel she should be admitted for further monitoring Treatment Plan: [] Disposition: [] Impression: [] Chest pain Syncope Leukocytosis This note was generated with [employer] dictation software. It may contain incorrect words, spelling, and punctuation that were not noted in review of the chart prior to signing ED Disposition - Plan for ED Patient: Chief Complaint: Chest Pain Referrals: Vimal Merida MD [Primary Care Provider] -
--- NOTE | 2017-12-18 02:09 | HP.PCM_ITS ---
Problem List (1) Chest pain Status: Acute (2) Leukocytosis Status: Acute History of Present Illness Date of Admission: 12/18/17 Chief Complaint: chest pain The patient is a 77 year old female patient who presents to the ER with chest pain. Onset over the past 5 days. The pain is made worse with movement and with deep breaths. She passed out for 3 minutes after sitting on the commode. She then had an emesis x 1. She was recently admitted and had a negative stress test. No fevers or chills or other apparent infection but her WBC count is elevated at 21,000 with a left shift. She will be admitted to PCU for observation. Past Medical History Past Medical History (Chronic Problems): Chronic Problems (Last Reviewed 12/11/17 @ 00:47 by Erik Cranes MD) Aortic valve cusp abnormality (Chronic) Fine, fibrinous mobile material noted on aortic side of right coronary cusp. No fibroelastoma or vegetation noted. per BLAKE 04/07/2016 Nonrheumatic mitral (valve) insufficiency (Chronic) Non-rheumatic tricuspid valve insufficiency (Chronic) Secondary pulmonary arterial hypertension (Chronic) Pulmonary nodule (Chronic) Splenic infarct (Chronic) Medical History: Medical History (Last Reviewed 12/11/17 @ 00:47 by Erik Carnes MD) Aortic valve cusp abnormality (Chronic) Q23.8 Fine, fibrinous mobile material noted on aortic side of right coronary cusp. No fibroelastoma or vegetation noted. per BLAKE 04/07/2016 Nonrheumatic mitral (valve) insufficiency (Chronic) I34.0 Non-rheumatic tricuspid valve insufficiency (Chronic) I36.1 Secondary pulmonary arterial hypertension (Chronic) I27.21 Pulmonary nodule (Chronic) R91.1 Splenic infarct (Chronic) D73.5 Breast cancer C50.919 Allergies No Known Allergies Allergy (Verified 12/10/17 21:23) Home Medications: Ambulatory Orders Medication Instructions Recorded Calcium Carbonate [Calcium] 600 mg PO DAILY 04/05/16 Cholecalciferol (VIT D3) [Vitamin 1,000 unit PO DAILY 04/05/16 D3] Multivitamin [Daily Multiple 1 each PO DAILY 04/06/16 Vitamin] Aspirin [Aspirin, Baby] 81 mg PO DAILY@0800 #30 tab.chew 04/08/16 magnesium oxide 250 mg tablet 250 mg PO QHS tab 08/06/17 Surgical History: Surgical History (Last Reviewed 12/11/17 @ 00:48 by Erik Carnes MD) History of hysterectomy Z90.710 History of lumpectomy of left breast Z98.890 Surgical History: hysterectomy, - - lumpectemy breast cancer in 2010 in [place] Smoking Status: Never smoker - *Family History Paternal Family History: Family History (Last Reviewed 08/06/17 @ 13:42 by Linda Brock) Brother Colon cancer Sister Heart disease History Items: - - lung nodule in father. Sibling Family History: Family History (Last Reviewed 08/06/17 @ 13:42 by Linda Brock) Brother Colon cancer Sister Heart disease History Items: - - sister with pacemaker,lung cancer brother. Review of Systems Constitutional: Denies: Chills, Fever, Weight Change HEENT: Denies: Head Aches, Sinus Congestion, Sinus Drainage Cardiovascular: Reports: Chest Pain. Denies: Palpitations Respiratory: Denies: Cough, Shortness of breath at rest, Sputum production Gastrointestinal: Denies: Abdominal Pain, Nausea, Vomiting Genitourinary: Denies: Dysuria Musculoskeletal: Denies: Joint Pain, Joint Tenderness Skin: Denies: Rash, Wounds Neurological: Denies: Numbness, Tingling, Focal weakness Psychiatric: Denies: Anxiety, Depression, Homicidal Ideations, Suicidal Ideations Hematologic/ Lymphatic: Denies: Easy Bruising, Easy Bleeding VTE Information - Inpt Only VTE Present on Admission: No VTE Mechan Device Prophylaxis: None VTE Pharm Prophylaxis ordered?: Yes - Physical Exam General: Alert, Oriented x3, Cooperative HEENT: Atraumatic, Normocephalic Neck: Supple, No JVD, Negative Carotid Bruits Lungs: Clear to auscultation, Normal air movement Cardiovascular: Regular rate, Regular Rhythm, Normal S1, Normal S2, No murmurs Abdomen: Bowel Sounds Present, Soft, Non Tender Extremities: No edema Skin: No rashes Musculoskeletal: No Tenderness to Palpation of Joints or Extremities Neurological: Neuro grossly intact Psych/Mental Status: Normal Affect, Appropriate Vital Signs Temp Pulse Resp BP Pulse Ox 98.1 F 95 22 H 125/64 H 96 12/17/17 23:52 12/17/17 23:52 12/17/17 23:52 12/17/17 23:52 12/17/17 23:52 Oxygen Flow Rate (L/min) 2 Oxygen Delivery Method Nasal Cannula Weight: 130 lb 15.273 oz Body Mass Index (BMI) 22.4 Laboratory Tests Past 24 Hrs 12/18/17 12/18/17 00:40 00:40 WBC 21.4 H RBC 3.54 L Hgb 10.7 L Hct 33.1 L MCV 93.5 MCH 30.2 MCHC 32.3 RDW 12.3 RDW Differential 41.6 Plt Count 349 MPV 10.2 Immature Gran % (Auto) 0.300 Neut % (Auto) 81.0 H Lymph % (Auto) 10.3 L Victoria % (Auto) 7.8 Eos % (Auto) 0.3 Baso % (Auto) 0.3 Absolute Neuts (auto) 17.3 H Absolute Lymphs (auto) 2.21 Total Counted Not Reportable Differential Comment SCANNED Diff Path Review May foll Sodium 136 Potassium 3.9 Chloride 100 Carbon Dioxide 28.0 Anion Gap 8 BUN 18 Creatinine 0.71 Estim Creat Clear Calc 41.97 Est GFR (MDRD) Af Amer 103 Est GFR (MDRD) Non-Af 85 BUN/Creatinine Ratio 25.4 H Glucose 159 H Calcium 8.7 Troponin I < 0.015 Assessment/Plan All Active Problems (Last Reviewed 12/11/17 @ 00:47 by Erik Carnes MD) Chest pain (Acute) Leukocytosis (Acute) Plan - admit to progressive care unit for observation - cycle cardiac enzymes - morphine, oxygen, nitro and aspirin per routine - LMWH for DVT prophylaxis - cbc, bmp in am - continue routine medications Code Visit OBSV E&M: 43591 Initial observation care L2
--- NOTE | 2017-12-18 02:32 | NURSING ---
Called ED paperhanger apprentice, Erica at this time to confirm Pt okay to come to PCU.
--- NOTE | 2017-12-18 03:04 | EKG12_ITS ---
Test Reason : ADM. EKG Blood Pressure : / mmHG Vent. Rate : 083 BPM Atrial Rate : 083 BPM P-R Int : 140 ms QRS Dur : 094 ms QT Int : 388 ms P-R-T Axes : 061 011 044 degrees QTc Int : 455 ms Normal sinus rhythm Low voltage QRS Borderline ECG When compared with ECG of 17-DEC-2017 23:51, MANUAL COMPARISON REQUIRED, DATA IS UNCONFIRMED Confirmed by ENRIQUE CORTES ([id number]), editor at large [place] ([id number]) on 12/20/2017 12:37:05 PM Referred By: HECTOR Confirmed By:ENRIQUE CORTES
[2017-12-18 07:09] LABS: Hematocrit 30.4 % (37-47); Mean Corp Hgb Conc 32.9 g/gl (32-36); Mean Corpuscular Hgb 31.1 pg (27.0-32.0); Mean Corpuscular Volume 94.4 fL (81-99); Mean Platelet Vol. 10.3 fl (6.2-12.0); Platelet Count 356 K/mm3 (150-450); RBC Distribution Width CV 11.7 % (11.6-14.6); Red Blood Count 3.22 M/mm3 (4.2-5.4); White Blood Count 17.3 K/mm3 (4.4-11.0)
[2017-12-18 07:14] LABS: Scan Indicated on CBC? Y/N NO
[2017-12-18 07:19] LABS: Anion Gap 7 (5-15); BUN 16 mg/dL (7-18); BUN/Creat Ratio 25.8 RATIO (10-20); Calcium,Total 8.7 mg/dL (8.5-10.1); Chloride 102 mmol/L (98-107); Creatinine, Serum 0.62 mg/dL (0.55-1.02); EST Glomerular Filtration Rate 100 mL/min (>60); Est Glom Filt Rate - Afr Amer 121 mL/min (>60); Estimated Creatinine Clearance 41.97 ml/min; Glucose 117 mg/dL (74-106); Potassium 4.2 mmol/L (3.5-5.1); Sodium Level 137 mmol/L (136-145)
[2017-12-18 07:25] LABS: International Normalized Ratio 1.2; Prothrombin Time (Protime)PT. 15.4 SECONDS (11.7-14.9)
[2017-12-18] MEDS: Aspirin 81 MG TAB.CHEW PO (08:22)
[2017-12-18] MEDS: Multivitamins,Therapeutic Tablet 1 TABLET PO (08:22)
[2017-12-18] MEDS: Calcium (Elemental) 500 MG Tablet PO (09:12)
[2017-12-18] MEDS: Enoxaparin 40 MG/0.4 ML Syringe SC (09:12)
--- NOTE | 2017-12-18 11:56 | DCINST_ITS ---
You will use the following diet at home:: No restrictions Discharge Activity: Return to Normal Activity Call your doctor if you observe: Shortness of breath, Dizziness, Fainting spells , Chest pain Allergies/Adverse Reactions: Allergies No Known Allergies Allergy (Verified 12/10/17 21:23) Medications to take at Discharge Calcium Carbonate [Calcium] 600 mg PO DAILY 04/05/16 Cholecalciferol (VIT D3) [Vitamin D3] 1,000 unit PO DAILY 04/05/16 Multivitamin [Daily Multiple Vitamin] 1 each PO DAILY 04/06/16 Aspirin [Aspirin, Baby] 81 mg PO DAILY@0800 #30 tab.chew 04/08/16 magnesium oxide 250 mg tablet 250 mg PO QHS tab 08/06/17 Oxycodone [Oxyir] 5 mg PO Q4H PRN PRN 2 Days #10 tablet 12/18/17 Pantoprazole Sodium [Protonix] 40 mg PO DAILY #30 tab 12/18/17 The following prescriptions were given: Oxycodone [Oxyir] 5 mg PO Q4H PRN PRN 2 Days #10 tablet PRN Reason: Pain Pantoprazole Sodium [Protonix] 40 mg PO DAILY #30 tab Primary Care Physician: Vimal Merida MD [Primary Care Provider] - Please follow up with your Primary Care Physician in: Within 1 Week Test Results: Test results from this visit will be discussed in further detail at your follow- up appointment, if applicable. Proposed Discharge Date: 12/18/17
--- NOTE | 2017-12-18 12:37 | PCM.DC.SUM ---
<Aleena Espinoza - Last Filed: 12/18/17 12:47> Discharge Date and Diagnosis Date of Admission: 12/18/17 Date of Discharge: 12/18/17 - Primary Discharge Diagnosis 1. Musculoskeletal chest pain 2. Leukocytosis, suspected reactive - Secondary Discharge Diagnosis Chronic Problems (Last Reviewed 12/11/17 @ 00:47 by Erik Carnes MD) Aortic valve cusp abnormality (Chronic) Fine, fibrinous mobile material noted on aortic side of right coronary cusp. No fibroelastoma or vegetation noted. per BLAKE 04/07/2016 Nonrheumatic mitral (valve) insufficiency (Chronic) Non-rheumatic tricuspid valve insufficiency (Chronic) Secondary pulmonary arterial hypertension (Chronic) Pulmonary nodule (Chronic) Splenic infarct (Chronic) Hospital Course and Treatment Imaging Results: Diagnostic Data Chest X-Ray 12/18/17 00:55 IMPRESSION: Chronic bibasilar interstitial change with no evidence of acute cardiopulmonary disease. Electronically Signed: Amaury Miller MD at 1:24 EDT Tel , Service support , Operations: None Procedures: None Summary of Care Provided: The patient is a 77 year old F admitted 12/18/2017 due to chest pain. She has a past medical history of nonrheumatic mitral valve insufficiency, nonrheumatic tricuspid valve insufficiency, secondary pulmonary arterial hypertension, chronic pulmonary nodule, history of splenic infarct, history of breast cancer. Patient recently admitted 12/11/2017 due to chest pain. At that time she underwent CT of chest which was negative for PE or arterial dissection. A CT of abdomen without acute findings. Patient underwent nuclear stress test which was negative for ischemia. Pain is reproducible with manipulation of upper chest. Enzymes repeated this admission which were negative. EKG again without evidence of ischemia. Patient noted to have leukocytosis which was also present during previous admission. No evidence of infectious etiology. Chest x-ray unremarkable. Suspect leukocytosis is reactive in nature secondary to stress/anxiety. Patient stable for discharge home with follow-up with primary care physician in 1 week. General: Alert, Oriented x3, Cooperative HEENT: Atraumatic, Normocephalic Neck: Supple, No JVD, Negative Carotid Bruits Lungs: Clear to auscultation, Normal air movement Cardiovascular: Regular rate, Regular Rhythm, Normal S1, Normal S2, No murmurs Abdomen: Bowel Sounds Present, Soft, Non Tender, nondistended Extremities: No edema Skin: No rashes Musculoskeletal: No Tenderness to Palpation of Joints or Extremities Neurological: Neuro grossly intact Psych/Mental Status: Normal Affect, Appropriate Patient seen exam prior to discharge. Physical assessment as noted above. Patient stable for discharge home with follow-up with primary care physician in 1 week. This patient was seen by HUMPHREY Gates under the supervision of Dr. Jain. Discharge Diet: No Restrictions Discharge Activity: Return to Normal Activity Call your doctor if you observe: Shortness of breath, Dizziness, Fainting spells, Chest pain Home Medications: Medications to take at Discharge Calcium Carbonate [Calcium] 600 mg PO DAILY 04/05/16 Cholecalciferol (VIT D3) [Vitamin D3] 1,000 unit PO DAILY 04/05/16 Multivitamin [Daily Multiple Vitamin] 1 each PO DAILY 04/06/16 Aspirin [Aspirin, Baby] 81 mg PO DAILY@0800 #30 tab.chew 04/08/16 magnesium oxide 250 mg tablet 250 mg PO QHS tab 08/06/17 Oxycodone [Oxyir] 5 mg PO Q4H PRN PRN 2 Days #10 tablet 12/18/17 Pantoprazole Sodium [Protonix] 40 mg PO DAILY #30 tab 12/18/17 Following Prescrptions Were Given to Patient: Oxycodone [Oxyir] 5 mg PO Q4H PRN PRN 2 Days #10 tablet PRN Reason: Pain Pantoprazole Sodium [Protonix] 40 mg PO DAILY #30 tab Primary Care Physician: Vimal Merida MD [Primary Care Provider] - Please follow up with your Primary Care Physician in: Within 1 Week Disposition: Home Minutes spent on discharge:: 35 Patient Condition:: Stable Medical Necessity - Tobacco Use Smoking Status: Never smoker Meaningful Use Info Meaningful Use Diagnoses (Choose all that apply): None applicable <Nadine Jain - Last Filed: 12/18/17 14:39> Discharge Date and Diagnosis - Secondary Discharge Diagnosis Chronic Problems (Last Reviewed 12/11/17 @ 00:47 by Erik Carnes MD) Aortic valve cusp abnormality (Chronic) Fine, fibrinous mobile material noted on aortic side of right coronary cusp. No fibroelastoma or vegetation noted. per BLAKE 04/07/2016 Nonrheumatic mitral (valve) insufficiency (Chronic) Non-rheumatic tricuspid valve insufficiency (Chronic) Secondary pulmonary arterial hypertension (Chronic) Pulmonary nodule (Chronic) Splenic infarct (Chronic) Hospital Course and Treatment Summary of Care Provided: Hospitalist note Discharge summary above reviewed as well as physical examination and I agree with above treatment discharge plan. Patient was admitted for atypical chest pain. Her EKG and cardiac enzymes were negative. Chest x-ray showed no acute findings. She had a recent admission around 1 week ago for the same complaint and she underwent nuclear stress test that was normal without evidence of stress-induced myocardial ischemia. One day before this admission, she had CTA chest and CT scan abdomen and pelvis as well as chest x-ray and all of them came back unremarkable. According to the patient, pain is worsened upon movement and she reported some discomfort upon taking her pills. Acute coronary syndrome ruled out. Her vital signs were stable. Her routine blood work was remarkable for leukocytosis which is attributed to be due to reactive to acute illness and pain. Chest x-ray showed no acute infiltrate. Patient discharged home in stable medical condition, discharged on OxyIR as needed for pain for next few days for presumed musculoskeletal pain, discharged on Protonix for possible GERD as patient complains of discomfort upon taking her pills, continued on her chronic home medication without any changes, recommended follow-up with PCP in 1 week. - Physical Exam General: Alert, Oriented x3, Cooperative, No apparent distress. HEENT: Atraumatic, PERRLA, EOMI. Neck: Supple, No JVD, Negative Carotid Bruits, Trachea Midline, Thyroid Normal. Lungs: Clear to auscultation, Normal air movement, No rhonchi, No wheeze, No rales. Cardiovascular: Regular rate, Regular Rhythm, Normal S1, Normal S2, PMI Normal. Abdomen: Bowel Sounds Present, Soft, Non Tender, Non-Distended, No Hepato-splenomegaly. Extremities: No clubbing, No cyanosis, No edema Skin: No rashes, No breakdown Neurological: Neuro grossly intact Vital Signs are stable. This note was generated with [employer] dictation software. It may contain incorrect words, spelling, and punctuation that were not noted in checking the note before signing. Minutes spent on discharge:: 25 Patient Condition:: Stable Meaningful Use Info Meaningful Use Diagnoses (Choose all that apply): None applicable Code Visit OBSV E&M: 55052 Observation care discharge
--- NOTE | 2017-12-18 12:46 | DS.PCM_ITS ---
<Aleena Espinoza - Last Filed: 12/18/17 12:47> Discharge Date and Diagnosis Date of Admission: 12/18/17 Date of Discharge: 12/18/17 - Primary Discharge Diagnosis 1. Musculoskeletal chest pain 2. Leukocytosis, suspected reactive - Secondary Discharge Diagnosis Chronic Problems (Last Reviewed 12/11/17 @ 00:47 by Erik Carnes MD) Aortic valve cusp abnormality (Chronic) Fine, fibrinous mobile material noted on aortic side of right coronary cusp. No fibroelastoma or vegetation noted. per BLAKE 04/07/2016 Nonrheumatic mitral (valve) insufficiency (Chronic) Non-rheumatic tricuspid valve insufficiency (Chronic) Secondary pulmonary arterial hypertension (Chronic) Pulmonary nodule (Chronic) Splenic infarct (Chronic) Hospital Course and Treatment Imaging Results: Diagnostic Data Chest X-Ray 12/18/17 00:55 IMPRESSION: Chronic bibasilar interstitial change with no evidence of acute cardiopulmonary disease. Electronically Signed: Amaury Miller MD at 1:24 EDT Tel , Service support , Operations: None Procedures: None Summary of Care Provided: The patient is a 77 year old F admitted 12/18/2017 due to chest pain. She has a past medical history of nonrheumatic mitral valve insufficiency, nonrheumatic tricuspid valve insufficiency, secondary pulmonary arterial hypertension, chronic pulmonary nodule, history of splenic infarct, history of breast cancer. Patient recently admitted 12/11/2017 due to chest pain. At that time she underwent CT of chest which was negative for PE or arterial dissection. A CT of abdomen without acute findings. Patient underwent nuclear stress test which was negative for ischemia. Pain is reproducible with manipulation of upper chest. Enzymes repeated this admission which were negative. EKG again without evidence of ischemia. Patient noted to have leukocytosis which was also present during previous admission. No evidence of infectious etiology. Chest x -ray unremarkable. Suspect leukocytosis is reactive in nature secondary to stress/anxiety. Patient stable for discharge home with follow-up with primary care physician in 1 week. General: Alert, Oriented x3, Cooperative HEENT: Atraumatic, Normocephalic Neck: Supple, No JVD, Negative Carotid Bruits Lungs: Clear to auscultation, Normal air movement Cardiovascular: Regular rate, Regular Rhythm, Normal S1, Normal S2, No murmurs Abdomen: Bowel Sounds Present, Soft, Non Tender, nondistended Extremities: No edema Skin: No rashes Musculoskeletal: No Tenderness to Palpation of Joints or Extremities Neurological: Neuro grossly intact Psych/Mental Status: Normal Affect, Appropriate Patient seen exam prior to discharge. Physical assessment as noted above. Patient stable for discharge home with follow-up with primary care physician in 1 week. This patient was seen by HUMPHREY Gates under the supervision of Dr. Jain. Discharge Diet: No Restrictions Discharge Activity: Return to Normal Activity Call your doctor if you observe: Shortness of breath, Dizziness, Fainting spells , Chest pain Home Medications: Medications to take at Discharge Calcium Carbonate [Calcium] 600 mg PO DAILY 04/05/16 Cholecalciferol (VIT D3) [Vitamin D3] 1,000 unit PO DAILY 04/05/16 Multivitamin [Daily Multiple Vitamin] 1 each PO DAILY 04/06/16 Aspirin [Aspirin, Baby] 81 mg PO DAILY@0800 #30 tab.chew 04/08/16 magnesium oxide 250 mg tablet 250 mg PO QHS tab 08/06/17 Oxycodone [Oxyir] 5 mg PO Q4H PRN PRN 2 Days #10 tablet 12/18/17 Pantoprazole Sodium [Protonix] 40 mg PO DAILY #30 tab 12/18/17 Following Prescrptions Were Given to Patient: Oxycodone [Oxyir] 5 mg PO Q4H PRN PRN 2 Days #10 tablet PRN Reason: Pain Pantoprazole Sodium [Protonix] 40 mg PO DAILY #30 tab Primary Care Physician: Vimal Merida MD [Primary Care Provider] - Please follow up with your Primary Care Physician in: Within 1 Week Disposition: Home Minutes spent on discharge:: 35 Patient Condition:: Stable Medical Necessity - Tobacco Use Smoking Status: Never smoker Meaningful Use Info Meaningful Use Diagnoses (Choose all that apply): None applicable <Nadine Jain - Last Filed: 12/18/17 14:39> Discharge Date and Diagnosis - Secondary Discharge Diagnosis Chronic Problems (Last Reviewed 12/11/17 @ 00:47 by Erik Carnes MD) Aortic valve cusp abnormality (Chronic) Fine, fibrinous mobile material noted on aortic side of right coronary cusp. No fibroelastoma or vegetation noted. per BLAKE 04/07/2016 Nonrheumatic mitral (valve) insufficiency (Chronic) Non-rheumatic tricuspid valve insufficiency (Chronic) Secondary pulmonary arterial hypertension (Chronic) Pulmonary nodule (Chronic) Splenic infarct (Chronic) Hospital Course and Treatment Summary of Care Provided: Hospitalist note Discharge summary above reviewed as well as physical examination and I agree with above treatment discharge plan. Patient was admitted for atypical chest pain. Her EKG and cardiac enzymes were negative. Chest x-ray showed no acute findings. She had a recent admission around 1 week ago for the same complaint and she underwent nuclear stress test that was normal without evidence of stress -induced myocardial ischemia. One day before this admission, she had CTA chest and CT scan abdomen and pelvis as well as chest x-ray and all of them came back unremarkable. According to the patient, pain is worsened upon movement and she reported some discomfort upon taking her pills. Acute coronary syndrome ruled out. Her vital signs were stable. Her routine blood work was remarkable for leukocytosis which is attributed to be due to reactive to acute illness and pain. Chest x-ray showed no acute infiltrate. Patient discharged home in stable medical condition, discharged on OxyIR as needed for pain for next few days for presumed musculoskeletal pain, discharged on Protonix for possible GERD as patient complains of discomfort upon taking her pills, continued on her chronic home medication without any changes, recommended follow-up with PCP in 1 week. - Physical Exam General: Alert, Oriented x3, Cooperative, No apparent distress. HEENT: Atraumatic, PERRLA, EOMI. Neck: Supple, No JVD, Negative Carotid Bruits, Trachea Midline, Thyroid Normal. Lungs: Clear to auscultation, Normal air movement, No rhonchi, No wheeze, No rales. Cardiovascular: Regular rate, Regular Rhythm, Normal S1, Normal S2, PMI Normal. Abdomen: Bowel Sounds Present, Soft, Non Tender, Non-Distended, No Hepato- splenomegaly. Extremities: No clubbing, No cyanosis, No edema Skin: No rashes, No breakdown Neurological: Neuro grossly intact Vital Signs are stable. This note was generated with [employer] dictation software. It may contain incorrect words, spelling, and punctuation that were not noted in checking the note before signing. Minutes spent on discharge:: 25 Patient Condition:: Stable Meaningful Use Info Meaningful Use Diagnoses (Choose all that apply): None applicable Code Visit OBSV E&M: 99992 Observation care discharge
[2017-12-18 16:31] LABS: Pathologist Review Reviewed
== END 2017-12-18 13:11 | disposition home or self-care (01) ==
LOC: ED 12-18 01:54 → PCU 12-18 02:36
PROVIDERS: Admitting Provider Family Medicine; Emergency Provider Emergency Medicine; Family Provider Family Medicine; PCP Family Medicine; Visit Provider Hospitalist
DX: R07.89 Other chest pain (principal); R55 Syncope and collapse; D72.829 Elevated white blood cell count, unspecified; R11.2 Nausea with vomiting, unspecified; I27.21 Secondary pulmonary arterial hypertension; R91.1 Solitary pulmonary nodule; Z85.3 Personal history of malignant neoplasm of breast; Z79.82 Long term (current) use of aspirin; Z79.899 Other long term (current) drug therapy
CPT/HCPCS: 36415; 71046; 80048; 84484; 85025; 85027; 85610; 93005; 96372; 99218; 99285; A4216; G0378

== ENCOUNTER → 2018-01-22 12:31 | Outpatient (CLI) | payer MEDICARE, BC, SELFPAY | PROVIDERS: Family Provider Family Medicine; PCP Family Medicine; Visit Provider Nurse Practitioner Family | DX: I31.3 Pericardial effusion (noninflammatory) (principal); I36.1 Nonrheumatic tricuspid (valve) insufficiency; I34.0 Nonrheumatic mitral (valve) insufficiency | CPT/HCPCS: 93306 ==

== ENCOUNTER → 2019-03-13 12:27 | Outpatient (CLI) | payer MEDICARE, BC, SELFPAY ==
[2019-03-07 13:45] VITALS: BMI 21.6
--- NOTE | 2019-03-13 12:39 | ECHOD_ITS ---
Reason For Study: Palpitations Procedure This was a 2D Doppler, Color Flow transthoracic echocardiogram. Myocardial strain analysis was performed in this exam to aid in the assessment of cardiac function. Exam performed in department. Left Ventricle Normal size and thickness. The estimated ejection fraction is 65 %. Stage 1 diastolic dysfunction. Septal motion consistent with IVCD. No regional wall motion abnormalities noted. Right Ventricle Normal size and thickness. Normal systolic function. Atria Normal left atrium. Normal right atrium. Normal atrial septum. Mitral Valve The mitral valve is structurally normal. No prolapse or stenosis seen. Mild (1+) mitral valve insufficiency. Tricuspid Valve Normal tricuspid valve. Mild to moderate (1-2+) tricuspid valve insufficiency. Right ventricular systolic pressure estimated to be 36 mmHg. Aortic Valve Trisinus/trileaflet aortic valve. Aortic sclerosis, no stenosis. Trivial aortic valve insufficiency. Pulmonic Valve Normal pulmonic valve. Mild (1+) pulmonic valve insufficiency. Great Vessels Normal aortic root. Normal arch. Normal inferior vena cava. Inferior vena cava collapse with sniff. Pericardium/Pleural No pericardial effusion. MMode/2D Measurements & Calculations LVIDd: 3.9 cm IVSd: 0.96 cm Ao root diam: 2.9 cm LVIDs: 2.5 cm LVPWd: 0.83 cm RVDd: 3.3 cm FS: 35.2 % LAV(MOD-bp): 48.3 ml LA A4 area: 16.9 cm2 LA dimension(2D): 3.6 cm LAV(MOD-bp) Indexed: 30.1 ml/m2 LAV(MOD-sp2): 40.6 ml LAV(MOD-sp4): 53.9 ml RA A4 area: 16.5 cm2 Time Measurements MV dec time: 0.17 sec Doppler Measurements & Calculations MV E max dave: 80.3 cm/sec Lat Peak E' Dave: 10.4 cm/sec Med Peak E' Dave: 6.0 cm/sec MV A max dave: 85.9 cm/sec E/E' lat: 7.7 E/E' med: 13.4 MV E/A: 0.93 Ao V2 max: 112.5 cm/sec AI max dave: 405.9 cm/sec LV V1 max: 99.8 cm/sec Ao max P.1 mmHg AI max P.9 mmHg LV V1 max P.0 mmHg AI dec slope: 271.3 cm/sec2 AI P1/2t: 438.3 msec PA V2 max: 111.7 cm/sec TR max dave: 263.2 cm/sec TR max P.8 mmHg Interpretation Summary The estimated ejection fraction is 65 %. Stage 1 diastolic dysfunction. Mild (1+) mitral valve insufficiency. Mild to moderate (1-2+) tricuspid valve insufficiency. Right ventricular systolic pressure estimated to be 36 mmHg. Trivial aortic valve insufficiency. Compared to echo report dated 01/22/2018, LV function has normalized to 65%, and RVSP has remained the same. Ordering Physician: Danyel Sands Referring Physician: Vimal Merida Performed By: Sandy Caruso RDCS, RVT
[2019-03-13 13:40] LABS: AST(SGOT) 17 U/L (15-37); Alanine Aminotransfer ALT/SGPT 24 U/L (13-56); Albumin, Serum 4.3 g/dL (3.2-5.0); Alkaline Phosphatase 76 U/L (45-117); Bilirubin, Direct 0.19 mg/dL (0.00-0.30); Cholesterol 165 mg/dL (200); Globulin 3.5 g/dL (2.2-4.2); High Density Lipoprotein 46 mg/dL; Protein, Total 7.8 g/dL (6.4-8.2); Triglycerides 112 mg/dL; Very Low Density Lipoprotein 22 mg/dL (5-40)
== END ==
PROVIDERS: Family Provider Family Medicine; PCP Family Medicine; Referring Provider Internal Medicine Cardiovascular Disease; Visit Provider Internal Medicine Cardiovascular Disease
DX: E78.00 Pure hypercholesterolemia, unspecified (principal); I31.3 Pericardial effusion (noninflammatory); I48.92 Unspecified atrial flutter
CPT/HCPCS: 36415; 80061; 80076; 93306

== ENCOUNTER → 2020-03-05 10:43 | Outpatient (CLI) | payer MEDICARE, BC, SELFPAY ==
[2019-10-02 09:06] VITALS: BMI 21.1
--- NOTE | 2020-03-05 10:44 | ECHOD_ITS ---
Reason For Study: Valve Evaluation Procedure This was a 2D Doppler, Color Flow transthoracic echocardiogram. Myocardial strain analysis was performed in this exam to aid in the assessment of cardiac function. Exam performed in department. Left Ventricle Normal LV size. The estimated ejection fraction is 60 %. Normal diastology for age. No regional wall motion abnormalities noted. Right Ventricle Normal RV size. Normal systolic function. Atria Normal left atrium. Normal right atrium. No doppler evidence for ASD. Mitral Valve There is no mitral valve stenosis. Mild (1+) mitral valve insufficiency. Tricuspid Valve There is no tricuspid stenosis. Mild tricuspid valve insufficiency. Pulmonary artery systolic pressure is 30 mmHg. Aortic Valve Aortic sclerosis, no stenosis. Trivial aortic valve insufficiency. Pulmonic Valve There is no pulmonic valvular stenosis. No pulmonic valve insufficiency. Great Vessels Normal aortic root. Pericardium/Pleural No pericardial effusion. MMode/2D Measurements & Calculations LVIDd: 4.0 cm IVSd: 1.0 cm LA dimension: 3.3 cm LVIDs: 2.2 cm LVPWd: 0.70 cm RVDd: 3.5 cm FS: 45.3 % LAV(MOD-bp): 52.8 ml LVAd ap4: 18.6 cm2 SV(MOD-sp4): 30.7 ml LAV(MOD-bp) Indexed: 32.8 ml/m2 EDV(MOD-sp4): 46.9 ml LAV(MOD-sp2): 49.0 ml EDV(sp4-el): 49.3 ml LAV(MOD-sp4): 51.6 ml LVAs ap4: 9.9 cm2 ESV(MOD-sp4): 16.3 ml ESV(sp4-el): 16.2 ml EF(MOD-sp4): 65.3 % EF(sp4-el): 67.2 % SV(sp4-el): 33.1 ml LA A4 area: 17.3 cm2 RA A4 area: 11.7 cm2 Time Measurements MV dec time: 0.16 sec Doppler Measurements & Calculations MV E max dave: 61.1 cm/sec Lat Peak E' Dave: 11.6 cm/sec Med Peak E' Dave: 7.4 cm/sec MV A max dave: 79.3 cm/sec E/E' lat: 5.3 E/E' med: 8.3 MV E/A: 0.77 MV V2 max: 94.9 cm/sec MV P1/2t max dave: 78.2 cm/sec Ao V2 max: 99.0 cm/sec MV max P.6 mmHg MV P1/2t: 89.7 msec Ao max P.9 mmHg MV V2 mean: 48.3 cm/sec MV mean P.1 mmHg MV dec slope: 255.3 cm/sec2 MV V2 VTI: 25.8 cm MVA(P1/2t): 2.5 cm2 AI max dave: 374.9 cm/sec LV V1 max: 93.2 cm/sec MR max dave: 541.0 cm/sec AI max P.2 mmHg LV V1 max P.5 mmHg MR max P.1 mmHg AI dec slope: 190.8 cm/sec2 MR mean dave: 471.5 cm/sec AI P1/2t: 575.6 msec MR mean P.8 mmHg MR VTI: 198.2 cm PA V2 max: 97.3 cm/sec TR max dave: 246.0 cm/sec TR max P.2 mmHg Interpretation Summary The estimated ejection fraction is 60 %. Normal diastology for age. Mild (1+) mitral valve insufficiency. Mild tricuspid valve insufficiency. Trivial aortic valve insufficiency. Ordering Physician: Danyel Sands Referring Physician: Vimal Merida Performed By: Vinicio Dorman RCS
== END ==
PROVIDERS: PCP Family Medicine; Referring Provider Internal Medicine Cardiovascular Disease; Visit Provider Internal Medicine Cardiovascular Disease
DX: I31.3 Pericardial effusion (noninflammatory) (principal)
CPT/HCPCS: 93306

== ENCOUNTER 2023-09-01 04:59 | Inpatient (IN) | payer MEDICARE, BC, SELFPAY ==
[2023-09-01] VITALS (14 sets, daily range): BP systolic 98–150; BP diastolic 47–80; PULSE 81–121; RESP 14–19; TEMP 36.2–37.6; O2SAT 93–97; BMI 21.4
--- NOTE | 2023-09-01 | APP_PTH ---
PATIENT: CRISTINA DOWELL LOC: MS3 U#:[id number] AGE/SX: 83/F ROOM: HI308 RE09/01/[address]: Dr. Anibal Menjivar MD : 1940 BED: 1 DIS: 09/13/2023 SPEC #: [id number] RECD: 09/01/23 12:12 STATUS: YESSICA REAmy #: [id number] MAKEDA: 09/01/23 00:[address]: Siddhartha Ulloa DEPT: SURGICAL PATHOLOGY RECD BY: Amaury De Oliveira ENTERED: 09/03/23 10:14 SP TYPE: APPENDIX OTHR DR: Dr. Vimal Merida MD Tissues: A - Appendix, NOS B - Appendix, NOS Procedures: Decalcification bone/plaque Surgery Specimen Level III HEADER OPERATION: Laparoscopic, Appendectomy PRE-OP DIAGNOSIS: Acute appendicitis TISSUE SUBMITTED: A- Appendicolith, B- Appendix MICROSCOPIC DIAGNOSIS A. Appendicolith: A fragments of calcified fecal material, consistent with fecalith. B. Appendix, appendectomy: Pieces of adipose tissue with acute and chronic inflammation and fat necrosis. See comment. / 09/06/23 COMMENT B. Obvious appendix is not identified in this specimen. Clinical correlation and appropriate follow up are necessary. MICROSCOPIC DESCRIPTION Slides are reviewed. GROSS DESCRIPTION A. Received in fixative is one container labeled with the patient's name and designated Appendicolith. The specimen consists of a single irregular fragment of dark indurated calcified appearance soft tissue that measures 0.8 x 0.8 x 0.5 cm. The specimen is totally submitted in one cassette after decalcification. B. Received in fixative is one container labeled with the patient's name and designated Appendix. The specimen consists of three fragments of damon soft tissue raging in size from 2.5 to 2.7cm. A distinct appendix is not identified. The specimen is totally submitted in one cassette. / 09/03/23 TC:2 CPT: 79258 x2,[id number]
--- NOTE | 2023-09-01 | FLU_PTH ---
PATIENT: CRISTINA DOWELL LOC: MS3 U#:[id number] AGE/SX: 83/F ROOM: MS308 RE09/01/[address]: Dr. Anibal Menjivar MD : 1940 BED: 1 DIS: 09/13/2023 SPEC #: [id number] RECD: 09/01/23 12:12 STATUS: YESSICA REQ #: [id number] MAKEDA: 09/01/23 00:[address]: Siddhartha Ulloa DEPT: CYTOLOGY RECD BY: Amaury De Oliveira ENTERED: 09/03/23 10:16 SP TYPE: Fluid OTHR DR: Dr. Vimal Merida MD Tissues: Peritoneal fluid Procedures: Special Stain Group II Surgery Specimen Level IV Cytospin Fluid HEADER OPERATION: Laparoscopic, Appendectomy PRE-OP DIAGNOSIS: Acute appendicitis TISSUE SUBMITTED: Peritoneal abscess fluid DIAGNOSIS CYTOLOGY Peritoneal abscess fluid (cytospin and cellblock): Negative for malignant cells. Marked acute inflammation. See comment. SJ/mr 09/04/23 COMMENT Please also make reference to additional specimen [id number]. CYTOLOGY STUDY Slides are reviewed. CYTOLOGY GROSS Received is 30 ml of red- cloudy fluid labeled with the patient's name and and designated per the requisition as Peritoneal abscess fluid. Submitted for cytology preparation including cell block. mr 09/03/23 TC:2 CPT: 22730 ,31841
--- NOTE | 2023-09-01 05:21 | CT_ITS ---
We are attempting to reach an attending provider to discuss findings. An addendum with communication details will be sent when the communication is complete. EXAM: CT ABDOMEN AND PELVIS WITH INTRAVENOUS CONTRAST CLINICAL INDICATION: lower abd pain TECHNIQUE: Helically acquired images were obtained of the abdomen and pelvis with intravenous contrast. This CT exam was performed using one or more of the following dose reduction techniques: automated exposure control, adjustment of the mA and/or kV according to patient size, and/or use of iterative reconstruction technique. CONTRAST: IV 75mL Isovue-300 RADIATION DOSE: Total DLP: 389.69 mGy-cm. COMPARISON: MR abdomen of 04/07/2016. FINDINGS: LOWER THORAX: Bands of of discoid atelectasis or scarring noted within the lower lobes, along with dependent atelectasis. A 5 mm ovoid circumscribed noncalcified subpleural nodule is noted within the left lower lobe; Fleischner Society Guidelines suggest no follow-up is necessary for patients with a low or high risk of malignancy.. No pleural effusion. No significant pericardial effusion. ABDOMEN: LIVER: Right hepatic lobe is minimally elongated and measures 17.7 cm in cephalocaudal dimension. No focal intrahepatic abnormality. GALLBLADDER AND BILE DUCTS: Unremarkable. No calcified gallstones. No gallbladder distention or wall edema. No intra- or extrahepatic biliary ductal dilation. PANCREAS: Unremarkable. No focal cystic or solid mass. SPLEEN: Spleen is upper normal size measuring 12 mm in cephalocaudal dimension. ADRENALS: Unremarkable. No nodules. KIDNEYS AND URETERS: Unremarkable. Normal renal size and position. No hydronephrosis. No renal or obstructing ureteral stones. STOMACH AND BOWEL: Stomach is decompressed. No periduodenal inflammatory changes or distended small bowel loops. Numerous diverticula project from the sigmoid colon, without evidence for acute diverticulitis. PELVIS: APPENDIX: The appendix is retrocecal and contains a large appendicolith. The appendix upstream to the appendicolith is abnormally dilated, measuring up to 13 mm in transverse diameter, and the appendix is filled with fluid. The appendix shows a hyperenhancing wall and there is extensive periappendiceal stranding indicating acute appendicitis. There is a nonenhancing defect within the wall of the appendiceal tip, consistent with necrosis/gangrene of the appendiceal wall. The appendix is surrounded by a small amount of fluid and extensive stranding but no discrete ring-enhancing abscess is identified at this time. There is thickening and edema of the wall of the cecal tip anterior to the appendix. The wall of the terminal ileum is also abnormally thickened and edematous with the wall measuring up to 8 mm in thickness, as the TI loops just medial to the inflamed appendix. BLADDER: Unremarkable. REPRODUCTIVE: Uterus is again noted be surgically absent. No adnexal mass. ABDOMEN and PELVIS: INTRAPERITONEAL SPACE: No free fluid in the dependent portion of pelvis. No free air. BONES/JOINTS: Osseous structures are demineralized. Mid to lower lumbar disc spaces show degenerative disc space narrowing, most severe at the L4/5 level where there is associated endplate sclerosis and vacuum disc phenomenon. Lower lumbar facet arthritis is present. No suspicious lytic or blastic abnormality. SOFT TISSUES: Unremarkable. No discrete abdominal or pelvic wall hernia. VASCULATURE: Calcific abdominal aorta and its branches. No AAA. SMA enhances normally. LYMPH NODES: Small pericecal lymph nodes are present, consistent with reactive nodes. No enlarged lymph nodes. OTHER FINDINGS: A broad-based 9 x 3 mm rounded hypodense pleural-based nodule is noted along the right hemidiaphragm; Fleischner Society Guidelines suggest no follow-up is necessary for patients with a low or high risk of malignancy. CT/Abdomen/Pelvis W IV Cont ONLY IMPRESSION: Retrocecal appendix with CT findings of acute appendicitis. Lack of enhancement of the wall of the cecal tip, consistent with necrosis/gangrene, with extensive periappendiceal inflammatory changes along with periappendiceal fluid, but no ring-enhancing abscess identified at this time. Associated reactive edema of the adjacent cecal tip and terminal ileum. No findings of small bowel obstruction. Nonstandard communication protocol initiated. Electronically Signed: Kd Little MD at 6:49 EDT ,
--- NOTE | 2023-09-01 05:27 | EDS_ITS ---
HPI HPI - GI History of Present Illness Chief Complaint: Abd Pain Detail of Chief Complaint: Right lower quadrant abdominal pain. Informant: patient and spouse/S.O. Abdominal Pain/Flank Pain Onset: Days Context: Gradual Onset Timing: Continuous Quality: Cramping Location: RLQ Current Severity: Mild Maximum Severity: Moderate Worsened by: Nothing Relieved by: Nothing Nausea/Vomiting/Emesis GI Symptom: Positive for Nausea Onset: Today and Yesterday Severity: Mild Diarrhea/Melena/Hematochezia GI Symptom: Positive for - (Mild constipation.); Negative for Diarrhea, Melena or Hematochezia Onset: Today and Yesterday Associated Symptoms Associated Symptoms: Negative for Dysuria, Frequency, Hematuria or Urgency Narrative Narrative: 83-year-old female prior total abdominal hysterectomy. History of breast cancer and atrial flutter. 3 to 4 days of lower abdominal pain now primarily over the right lower quadrant. She has had nausea and dry heaves. No diarrhea. Constipation. Denies fever. No dysuria or hematuria. Prior similar symptoms: No Recent Illness/Hospitalization: No PFSH PFSH Medical History (Updated 09/01/23 @ 06:[address] Domingo Good MD) Aortic valve cusp abnormality Breast cancer Chest pain Elevated LFTs Leukocytosis Non-rheumatic tricuspid valve insufficiency Nonrheumatic mitral (valve) insufficiency Paroxysmal atrial flutter Pericardial effusion (~12/26/17) Pulmonary nodule Secondary pulmonary arterial hypertension Splenic infarct Home Medications multivitamin 1 ea PO DAILY supplement 04/06/16 [History Last Taken 12/17/17 08:00] aspirin 81 mg chewable tablet 81 mg PO DAILY@0800 ##30 04/08/16 [Rx Last Taken 12/17/17 23:00] anastrozole 1 mg tablet 1 mg PO DAILY 03/27/22 [History Last Taken Unknown] Allergy/AdvReac Type Severity Reaction Status Date / Time No Known Allergies Allergy Verified 09/01/23 05:11 Family History Brother Colon cancer lung cancer Sister Heart disease SSS pacemaker age 76 Surgical History History of hysterectomy History of lumpectomy of left breast Social History Smoking Status: Never smoker alcohol intake: current alcohol intake frequency: 0-2 drinks per day substance use type: does not use caffeine: Yes Type: tea Number of servings: 1 ROS ROS ED ROS Narrative Right lower quadrant abdominal pain. Nausea. Constipation. No dysuria. Denies fever. Review of Systems ROS Unobtainable: Denies due to encephalopathy Constitutional Constitutional ED: Denies chills or fever(s) ENT ENT ED: Denies ear pain Respiratory/Chest Respiratory/Chest: Denies cough or dyspnea Gastrointestinal Gastrointestinal: Reports abdominal pain, constipation, nausea and vomiting; Denies diarrhea or melena Genitourinary Genitourinary ED: Denies dysuria or hematuria Musculoskeletal Musculoskeletal: Denies arthralgias Integumentary Denies abscess Neurologic Neurologic: Denies headache(s) Psychiatric Psychiatric: Denies anxiety or depression Endocrine Endocrinology: Denies polydipsia Hematologic/Lymphatic Hematologic/Lymphatic: Denies easy bleeding, easy bruising or lymphadenopathy Allergic/Immunologic Allergic/Immunologic ED: Denies mouth swelling, tongue swelling or urticaria EXAM Physical Exam Narrative Exam Narrative: Well-appearing 83-year-old female. Vital signs stable although she does not look septic toxic. She is no distress. She is tachycardic on the monitor appears to be sinus tach. H EENT exam unremarkable. Neck nontender. Lungs clear to auscultation bilateral. Heart tachycardic rate about 110 no murmur. Chest wall and ribs nontender. Abdomen soft nondistended. Normal bowel sounds. Well-healed midline lower surgical incision from a prior hysterectomy. Upper quadrants unremarkable. Right upper quadrant nontender. She does have tenderness over the right lower quadrant McBurney's point. Guarding. No hernia or mass. No pulsatile mass. No signs of trauma. Moving all 4 extremities. Tender. No edema. No deformity. Back nontender. Neurologically she is awake and alert. Answering questions following commands. at bedside. Const Vital Signs: 09/01/23 05:01 09/01/23 07:09 Temperature 99 F Temperature Source Temporal Pulse Rate 121 H 99 Respiratory Rate 19 H 18 Blood Pressure 150/64 H 125/80 H Blood Pressure Mean 92 95 Pulse Ox 93 97 Oxygen Delivery Method Room Air Room Air Positive well nourished and well developed; Negative for obese, cachectic, contractures or unkempt General Appearance ED: well developed and NAD; Negative for unkempt, cachectic, contractures or pallor Nutritional Appearance: Negative for cachectic or obese HEENT Reports moist mucous membranes; Denies dry mucous membranes normocephalic and atraumatic; Negative for trauma or tenderness Mouth ED: No dry mucous membranes Mouth: No dry mucous membranes Eyes PERRL and EOMs intact bilaterally General Eye ED: Negative for pale conjunctiva or scleral icterus Neck no lymphadenopathy, supple and no JVD General: Negative for tenderness Carotids: Negative for other Lymph Lymphatic: Negative for other Resp normal respiratory effort and clear to auscultation bilaterally Effort and Inspection: Negative for respiratory distress Auscultation: Negative for rales, rhonchi, wheezes or diminished lung sounds Cardio regular rhythm, S1 normal heart sound, S2 normal heart sound and no murmurs; Negative for regular rate Rate: tachycardic GI non-distended and no masses; Negative for non-tender GI Narrative: Right lower quadrant abdominal pain with tenderness and guarding. Inspection: Negative for abdominal distention Auscultation: normoactive bowel sounds Palpation: soft, tender and guarding; Negative for hernia, mass, pulsatile mass or rebound tenderness present Back/Spine no CVA tenderness General Back: Negative for CVA tenderness Cervical Spine: Negative for cervical spine tenderness Thoracic Spine / Upper Back: Negative for thoracic spinal tenderness Lumbar Spine / Lower Back: Negative for lumbar spinal tenderness Coccyx: Negative for other Extremity full ROM General Extremety ED: Negative for edema or tenderness General Extremity: Negative for edema Neuro CN's II-XII intact bilaterally and moves all extremities Sensorium / Orientation: alert, oriented to person, oriented to place and oriented to time; Negative for orientation impaired, confused, lethargic or stuporous Motor Exam: strength 5/5 throughout Psych mental status grossly normal and thought process normal Appearance: Negative for unkempt Attitude: No agitated Mood & Affect: Negative for depressed, anxious or tearful Skin no wounds General Skin Exam: Negative for jaundice or pallor Lesions: no lesions Rashes: no rashes Trauma: Negative for abrasion Nails: Negative for discolored MDM MDM MDM Narrative Medical decision making narrative: 83-year-old female right lower quadrant abdominal pain. Differential would include appendicitis, right-sided diverticulitis, constipation versus other. Urine, labs and CT being obtained. She did not want any medication currently for pain or nausea. She also be treated with IV fluids. Repeat exam at 6:55 AM patient's CAT scan labs and exam are all consistent with acute appendicitis. I reviewed the CAT scan and it was also read by the radiologist who called me with his finding of acute appendicitis with inflammation and appendicolith. I have general surgery on page Dr. Siddhartha Ulloa. Patient was started on IV Zosyn. I have already discussed test results with her and her . They are comfortable with the plan. She understands she will be going to the OR. She did not want anything more for pain or nausea at this time. History & Record Review Discussion w/independent historian: Patient and Family Additional record(s) reviewed:: Prior inpatient record, Prior outpatient record, Prior ED visit and Prior labs Lab Data Attestation: I reviewed the patient's lab results. Lab results narrative: Electrolytes show gap 7. Normal BUN and creatinine. Glucose 149. CBC shows an elevated white count 24.6. H&H of 12.9 and 39. Platelets 289. Urinalysis has no nitrates. 3+ bacteria. No white or red cells. Labs: Laboratory Results - last 24 hr 09/01/23 09/01/23 05:26 05:49 WBC 24.6 H RBC 4.24 Hgb 12.9 Hct 39.3 MCV 92.7 MCH 30.4 MCHC 32.8 RDW Std Deviation 42.0 RDW Coeff of Rick 12.2 Plt Count 289 MPV 11.4 Immature Gran % (Auto) 0.700 Neut % (Auto) 83.1 H Lymph % (Auto) 2.9 L [place] % (Auto) 12.9 H Eos % (Auto) 0.0 Baso % (Auto) 0.4 Absolute Neuts (auto) 20.4 H Absolute Lymphs (auto) 0.72 L Nucleated RBC % [address] Review May foll Sodium 138 Potassium 4.2 Chloride 106 Carbon Dioxide 25.0 Anion Gap 7 BUN 18 Creatinine 0.86 Estim Creat Clear Calc 44.30 Est GFR (MDRD) Af Amer 82 Est GFR (MDRD) Non-Af 67 BUN/Creatinine Ratio 21.0 H Glucose 149 H Calcium 8.4 L Urine Color Yellow Urine Clarity Cloudy Urine pH 5.0 Ur Specific [place] 1.025 Urine Protein 30 H Urine Glucose (UA) Normal Urine Ketones 50 H Urine Occult Blood 25 H Urine Nitrite Negative Urine Bilirubin 1 H Urine Urobilinogen 1 H Ur Leukocyte Esterase 100 H Urine RBC 0 SEEN Urine WBC 0 SEEN Ur Squamous Epith Cells 0 SEEN Urine Bacteria 3+ Hyaline Casts 0-5 SEEN Urine Mucus 0 SEEN Radiography Diagnostic Testing: Clinical Impression(s) from Imaging Studies Abdomen/Pelvis CT 09/01/23 05:21 IMPRESSION: Retrocecal appendix with CT findings of acute appendicitis. Lack of enhancement of the wall of the cecal tip, consistent with necrosis/gangrene, with extensive periappendiceal inflammatory changes along with periappendiceal fluid, but no ring-enhancing abscess identified at this time. Associated reactive edema of the adjacent cecal tip and terminal ileum. No findings of small bowel obstruction. Nonstandard communication protocol initiated. Electronically Signed: Kd Little MD at 6:49 EDT , ADDENDUM: 09/01/23 0701 IMPRESSION: Retrocecal appendix with CT findings of acute appendicitis. Lack of enhancement of the wall of the cecal tip, consistent with necrosis/gangrene, with extensive periappendiceal inflammatory changes along with periappendiceal fluid, but no ring-enhancing abscess identified at this time. Associated reactive edema of the adjacent cecal tip and terminal ileum. No findings of small bowel obstruction. Nonstandard communication protocol initiated. N.B. : The above Results were Read Back by Kd Little MD to Domingo Good MD, and understanding confirmed on 09/01/2023 06:54:32 (ET). Electronically Signed: Kd Little MD at 6:49 EDT , Discharge Plan Dx/Rx/DC Orders Clinical Impression: Abdominal pain, Leukocytosis, Acute appendicitis Disposition Disposition: [facility] Care [facility]
[2023-09-01 05:35] LABS: Absolute Lymphocyte Count 0.72 X10^3/uL (0.83-4.51); Absolute Neutrophil Count 20.4 X10^3/uL (2.0-7.7); Basophil# 0.11 X10^3/uL; Basophil% 0.4 % (0-1); Eosinophil# 0.01 X10^3/uL; Hematocrit 39.3 % (37-47); Hemoglobin 12.9 g/dL (12.0-15.0); Lymphocyte # 0.72 X10^3/ul (0.83-4.51); Lymphocyte % 2.9 % (19-41); Mean Corp Hgb Conc 32.8 g/dL (32-36); Mean Corpuscular Hgb 30.4 pg (27.0-32.0); Mean Corpuscular Volume 92.7 fL (81-99); Mean Platelet Vol. 11.4 fl (6.2-12.0); Monocyte# 3.17 X10^3/uL; Monocyte% 12.9 % (0-10); NRBC Flagged by Analyzer 0 % (0-5); Neutrophil # 20.41 X10^3/uL (2.7-7.7); Neutrophil % 83.1 % (47-70); POSITIVE DIFFERENTIAL YES; Platelet Count 289 K/mm3 (150-450); RBC Distribution Width CV 12.2 % (11.6-14.6); Red Blood Count 4.24 M/mm3 (4.2-5.4); White Blood Count 24.6 K/mm3 (4.4-11.0)
[2023-09-01 05:49] LABS: Anion Gap 7 (5-15); BUN 18 mg/dL (7-18); Calcium,Total 8.4 mg/dL (8.5-10.1); Chloride 106 mmol/L (98-107); Creatinine, Serum 0.86 mg/dL (0.55-1.02); EST Glomerular Filtration Rate 67 mL/min (>60); Est Glom Filt Rate - Afr Amer 82 mL/min (>60); Glucose 149 mg/dL (74-106); Potassium 4.2 mmol/L (3.5-5.1); Sodium Level 138 mmol/L (136-145)
[2023-09-01] MEDS: 0.9% Normal Saline (1000mL) 1,000 ML 999 ML IV (05:50)
[2023-09-01 05:53] LABS: Mucous, Urine 0 SEEN /hpf (<or=2+); Red Blood Cells-Urine 0 SEEN /hpf (0-5); Squamous Epithelial Cells - UA 0 SEEN /hpf (5-10); White Blood Cells 0 SEEN /hpf (0-5)
[2023-09-01 05:56] LABS: Color, Urine Yellow (Yellow); Glucose, Dipstick Normal (Normal); Ketone-Dipstick 50 mg/dl (Negative); Leukocyte Esterase-Dipstick 100 /ul (Negative); Nitrite-Dipstick Negative (Negative); Occult Blood-Urine 25 /ul (Negative); Protein-Dipstick 30 mg/dl (Negative); Specific Gravity, Urine 1.025 (1.002-1.030); Urine Clarity Cloudy (Clear); Urine Urobilinogen 1 mg/dl (Normal)
[2023-09-01 05:59] LABS: Urine Bilirubin Dipstick 1 mg/dL (Negative)
[2023-09-01 06:05] LABS: Differential Indicated SCAN CRITERIA MET
[2023-09-01 06:14] LABS: Bacteria 3+ /hpf (None Seen); Hyaline Cast 0-5 SEEN /lpf (0-5)
--- NOTE | 2023-09-01 07:15 | EKG12_ITS ---
Test Reason : PRE-OP Blood Pressure : / mmHG Vent. Rate : 100 BPM Atrial Rate : 100 BPM P-R Int : 138 ms QRS Dur : 096 ms QT Int : 362 ms P-R-T Axes : 073 -12 043 degrees QTc Int : 466 ms Normal sinus rhythm with PAC's Incomplete right bundle branch block Borderline ECG Confirmed by Siddhartha Lozano ([id number]), editorial director GLENN ZHU ([id number]) on 09/03/2023 10:53:13 AM Referred By: JASON Confirmed By:Siddhartha Lozano
[2023-09-01] MEDS: Piperacil/Tazobactam 4.5 GM in 0.9% Normal Saline (100mL MB+) 100 ML IV (07:27)
--- NOTE | 2023-09-01 08:16 | PCM.HP.STD ---
[facility] - General General Date of Service: 09/01/23 Chief Complaint: Abdominal pain HPI Narrative CRISTINA DOWELL, is a 83 F who presents to [facility] ER with a approximately 3-day history of right lower quadrant abdominal pain and associated anorexia. She states she was initially constipated and suspected this was the cause of her abdominal pain so she took Ex-Lax and cleared out but had persistent pain. She remarks of some intermittent dry heaves but denies any vomiting. She also denies any fevers or chills at home. Incidentally, her is a former patient of mine and he presents with her today. He shares that his has had an uncharacteristic period of lethargy. Patient's ER workup is notable for CBC demonstrating leukocytosis of greater than 24,000. CT imaging of the abdomen pelvis shows evidence of acute appendicitis with appendicolith and probable areas of necrosis. Radiology notes the location of patient's appendix is retrocecal lie. Patient has a moderately complex past medical history inclusive of breast cancer, atrial flutter, pericardial effusion, and pulmonary hypertension. She remains on anastrozole for her history of breast cancer status postlumpectomy. As far as her cardiac status, her most recent echo available in our EMR was from 2020 and showed a preserved ejection fraction. Patient insist that she has not had any decreased exercise tolerance or increased dyspnea. [facility] Medical History (Updated 09/01/23 @ 06:[address] Domingo Good MD) Aortic valve cusp abnormality Breast cancer Chest pain Elevated LFTs Leukocytosis Non-rheumatic tricuspid valve insufficiency Nonrheumatic mitral (valve) insufficiency Paroxysmal atrial flutter Pericardial effusion (~12/26/17) Pulmonary nodule Secondary pulmonary arterial hypertension Splenic infarct Home Medications multivitamin 1 ea PO DAILY supplement 04/06/16 [History Last Taken 12/17/17 08:00] aspirin 81 mg chewable tablet 81 mg PO DAILY@0800 ##30 04/08/16 [Rx Last Taken 12/17/17 23:00] anastrozole 1 mg tablet 1 mg PO DAILY 03/27/22 [History Last Taken Unknown] Allergy/AdvReac Type Severity Reaction Status Date / Time No Known Allergies Allergy Verified 09/01/23 05:11 Family History Brother Colon cancer lung cancer Sister Heart disease SSS pacemaker age 76 Surgical History History of hysterectomy History of lumpectomy of left breast Social History Smoking Status: Never smoker alcohol intake: current alcohol intake frequency: 0-2 drinks per day substance use type: does not use caffeine: Yes Type: tea Number of servings: 1 Vital Signs Vital Signs Vital Signs: 09/01/23 05:01 09/01/23 07:09 Temperature 99 F Temperature Source Temporal Pulse Rate 121 H 99 Respiratory Rate 19 H 18 Blood Pressure 150/64 H 125/80 H Blood Pressure Mean 92 95 Pulse Ox 93 97 Oxygen Delivery Method Room Air Room Air Weight Weight: 124 lb 8.979 oz Body Mass Index (BMI) 21.4 Physical Exam Const alert and oriented x3 General Appearance: cooperative Resp normal respiratory effort GI GI Narrative: Lower midline laparotomy scar consistent with patient's prior hysterectomy, nondistended, soft, tender to palpation over McBurney's point. Results Lab / Micro Data 09/01/23 05:26 09/01/23 05:26 Labs: Laboratory Results - last 24 hr 09/01/23 05:26: WBC 24.6 H, RBC 4.24, Hgb 12.9, Hct 39.3, MCV 92.7, MCH 30.4, MCHC 32.8, RDW Std Deviation 42.0, RDW Coeff of Rick 12.2, Plt Count 289, MPV 11.4, Immature Gran % (Auto) 0.700, Neut % (Auto) 83.1 H, Lymph % (Auto) 2.9 L, [place] % (Auto) 12.9 H, Eos % (Auto) 0.0, Baso % (Auto) 0.4, Absolute Neuts (auto) 20.4 H, Absolute Lymphs (auto) 0.72 L, Nucleated RBC % 0, Diff Path Review May foll, Sodium 138, Potassium 4.2, Chloride 106, Carbon Dioxide 25.0, Anion Gap 7, BUN 18, Creatinine 0.86, Estim Creat Clear Calc 44.30, Est GFR (MDRD) Af Amer 82, Est GFR (MDRD) Non-Af 67, BUN/Creatinine Ratio 21.0 H, Glucose 149 H, Calcium 8.4 L 09/01/23 05:49: Urine Color Yellow, Urine Clarity Cloudy, Urine pH 5.0, Ur Specific [place] 1.025, Urine Protein 30 H, Urine Glucose (UA) Normal, Urine Ketones 50 H, Urine Occult Blood 25 H, Urine Nitrite Negative, Urine Bilirubin 1 H, Urine Urobilinogen 1 H, Ur Leukocyte Esterase 100 H, Urine RBC 0 SEEN, Urine WBC 0 SEEN, Ur Squamous Epith Cells 0 SEEN, Urine Bacteria 3+, Hyaline Casts 0-5 SEEN, Urine Mucus 0 SEEN Imaging Radiology Impression Abdomen/Pelvis CT 09/01/23 05:21 IMPRESSION: Retrocecal appendix with CT findings of acute appendicitis. Lack of enhancement of the wall of the cecal tip, consistent with necrosis/gangrene, with extensive periappendiceal inflammatory changes along with periappendiceal fluid, but no ring-enhancing abscess identified at this time. Associated reactive edema of the adjacent cecal tip and terminal ileum. No findings of small bowel obstruction. Nonstandard communication protocol initiated. Electronically Signed: Kd Little MD at 6:49 EDT , ADDENDUM: 09/01/23 0701 IMPRESSION: Retrocecal appendix with CT findings of acute appendicitis. Lack of enhancement of the wall of the cecal tip, consistent with necrosis/gangrene, with extensive periappendiceal inflammatory changes along with periappendiceal fluid, but no ring-enhancing abscess identified at this time. Associated reactive edema of the adjacent cecal tip and terminal ileum. No findings of small bowel obstruction. Nonstandard communication protocol initiated. N.B. : The above Results were Read Back by Kd Ltitle MD to Domingo Good MD, and understanding confirmed on 09/01/2023 06:54:32 (ET). Electronically Signed: Kd Little MD at 6:49 EDT , Assessment & Plan Assessment/Plan (1) Acute appendicitis: PLAN: This an 83-year-old female who presents with a 3-day history of progressive abdominal pain in the right lower quadrant not made better by treatment of constipation. ER workup is consistent with acute appendicitis. Per radiologic evaluation with CT this would be uncomplicated appendicitis, however, radiology does note evidence of gangrene. Patient is rather exquisitely tender to palpation in the right lower quadrant even with a retrocecal lie to her appendix. Thus, I am concerned for the potential for intraperitoneal contamination and have counseled and Mrs. Navarro that this procedure could include laparoscopic appendectomy versus exploratory laparotomy with ileocecectomy. I also shared the possibility of requiring a drain postoperatively to try to mitigate patient's risk for postoperative abscess. They confirm understanding and wished to proceed as described. Therefore both the operating team and anesthesia have been notified and will plan to proceed emergently for procedure as detailed above. Postoperatively patient will be admitted to the general surgery service and I have sought consult with hospitalist service given her cardiac history. Charges/Coding Visit Charges Inpatient E&M: 94348 Init Hosp L2
--- NOTE | 2023-09-01 08:20 | HP.PCM.HOS_ITS ---
HPI - General HPI Narrative CRISTINA DOWELL, is a 83 F who presents [facility] Medical History (Updated 09/01/23 @ 06:[address] Domingo Good MD) Aortic valve cusp abnormality Breast cancer Chest pain Elevated LFTs Leukocytosis Non-rheumatic tricuspid valve insufficiency Nonrheumatic mitral (valve) insufficiency Paroxysmal atrial flutter Pericardial effusion (~12/26/17) Pulmonary nodule Secondary pulmonary arterial hypertension Splenic infarct Home Medications multivitamin 1 ea PO DAILY supplement 04/06/16 [History Last Taken 12/17/17 08:00] aspirin 81 mg chewable tablet 81 mg PO DAILY@0800 ##30 04/08/16 [Rx Last Taken 12/17/17 23:00] anastrozole 1 mg tablet 1 mg PO DAILY 03/27/22 [History Last Taken Unknown] Allergy/AdvReac Type Severity Reaction Status Date / Time No Known Allergies Allergy Verified 09/01/23 05:11 Family History Brother Colon cancer lung cancer Sister Heart disease SSS pacemaker age 76 Surgical History History of hysterectomy History of lumpectomy of left breast Social History Smoking Status: Never smoker alcohol intake: current alcohol intake frequency: 0-2 drinks per day substance use type: does not use caffeine: Yes Type: tea Number of servings: 1 Vital Signs Vital Signs Vital Signs: 09/01/23 05:01 09/01/23 07:09 Temperature 99 F Temperature Source Temporal Pulse Rate 121 H 99 Respiratory Rate 19 H 18 Blood Pressure 150/64 H 125/80 H Blood Pressure Mean 92 95 Pulse Ox 93 97 Oxygen Delivery Method Room Air Room Air Weight Weight: 56.5 kg Body Mass Index (BMI) 21.4 Results Lab / Micro Data 09/01/23 05:26 09/01/23 05:26 Labs: Laboratory Results - last 24 hr 09/01/23 05:26: WBC 24.6 H, RBC 4.24, Hgb 12.9, Hct 39.3, MCV 92.7, MCH 30.4, MCHC 32.8, RDW Std Deviation 42.0, RDW Coeff of Rick 12.2, Plt Count 289, MPV 11.4, Immature Gran % (Auto) 0.700, Neut % (Auto) 83.1 H, Lymph % (Auto) 2.9 L, [place] % (Auto) 12.9 H, Eos % (Auto) 0.0, Baso % (Auto) 0.4, Absolute Neuts (auto) 20.4 H, Absolute Lymphs (auto) 0.72 L, Nucleated RBC % 0, Diff Path Review May foll, Sodium 138, Potassium 4.2, Chloride 106, Carbon Dioxide 25.0, Anion Gap 7, BUN 18, Creatinine 0.86, Estim Creat Clear Calc 44.30, Est GFR (MDRD) Af Amer 82, Est GFR (MDRD) Non-Af 67, BUN/Creatinine Ratio 21.0 H, Glucose 149 H, Calcium 8.4 L 09/01/23 05:49: Urine Color Yellow, Urine Clarity Cloudy, Urine pH 5.0, Ur Specific [place] 1.025, Urine Protein 30 H, Urine Glucose (UA) Normal, Urine Ketones 50 H, Urine Occult Blood 25 H, Urine Nitrite Negative, Urine Bilirubin 1 H, Urine Urobilinogen 1 H, Ur Leukocyte Esterase 100 H, Urine RBC 0 SEEN, Urine WBC 0 SEEN, Ur Squamous Epith Cells 0 SEEN, Urine Bacteria 3+, Hyaline Casts 0-5 SEEN, Urine Mucus 0 SEEN Imaging Radiology Impression Abdomen/Pelvis CT 09/01/23 05:21 IMPRESSION: Retrocecal appendix with CT findings of acute appendicitis. Lack of enhancement of the wall of the cecal tip, consistent with necrosis/gangrene, with extensive periappendiceal inflammatory changes along with periappendiceal fluid, but no ring-enhancing abscess identified at this time. Associated reactive edema of the adjacent cecal tip and terminal ileum. No findings of small bowel obstruction. Nonstandard communication protocol initiated. Electronically Signed: Kd Little MD at 6:49 EDT , ADDENDUM: 09/01/23 0701 IMPRESSION: Retrocecal appendix with CT findings of acute appendicitis. Lack of enhancement of the wall of the cecal tip, consistent with necrosis/gangrene, with extensive periappendiceal inflammatory changes along with periappendiceal fluid, but no ring-enhancing abscess identified at this time. Associated reactive edema of the adjacent cecal tip and terminal ileum. No findings of small bowel obstruction. Nonstandard communication protocol initiated. N.B. : The above Results were Read Back by Kd Little MD to Domingo Good MD, and understanding confirmed on 09/01/2023 06:54:32 (ET). Electronically Signed: Kd Little MD at 6:49 EDT ,
--- NOTE | 2023-09-01 08:25 | PCM.CONS.GEN ---
Assessment & Plan Assessment/Plan (1) Acute appendicitis: (2) Leukocytosis: PLAN: Plan Patient is an 83 year old female who presented to [facility] ED on 09/01/2023 with acute abdominal pain. Diagnosed with acute appendicitis, admitted under general surgery. Medicine consulted for medical management. 1. Acute appendicitis - General surgery primary. S/p laparoscopic appendectomy w/ drain placement w/ Dr. Ulloa on 08/31. Was noted that patient had purulent fluid upon mobilization of right colon and severely inflamed appendiceal base w/ freely present appendicolith w/in the peritoneal cavity. Treating w/ IV Zosyn, mIVF, IV dilaudid for pain management. Patient remains n.p.o. for now. Further management per surgery. 2. History of splenic infarct - Home baby aspirin held on 08/31. Will plan to resume on morning of 09/01. 3. History of breast cancer - Continue home anastrozole. 4. History of multiple cardiac conditions - History of pericardial effusion requiring pericardial window and drainage (done at [facility] in 2018), aortic valve cusp abnormality, nonrheumatic mitral valve insufficiency, episode of atrial flutter, splenic infarct on aspirin, mild pulmonary hypertension. See HPI above for further details. Last cardiology visit in 2021, patient very stable at that time with good improvement in TTE findings. EKG w/ NSR, no ST changes on admit. CXR nonacute. No cardiac specific needs while inpatient, continue outpatient follow up as needed. Total clinical time spent by myself addressing the patient's medical issues, reviewing all the data, and collaborating with patient's care team: 35 minutes. HPI Consult Data Date of Consult: 09/01/23 HPI Narrative Reason for Consultation: Medical management HPI Narrative: CRISTINA DOWELL, is a 83 F who presented to [facility] ED on 09/01/[address] abdomen/pelvis done in the ED had findings consistent with acute appendicitis. ED discussed with general surgery and plan was made to admit under general surgery with medicine consulted for medical management. I saw patient at the bedside in the ED shortly before she went to the OR. was present at bedside. Patient was sitting up in bed and conversing normally, did appear to be in mild to moderate discomfort due to abdominal pain. She noted that the pain medication she had been given on arrival to the ED was helpful but felt like it was beginning to wear off. Her pain was located primarily in the mid abdomen to right lower quadrant region. She denied any fevers/chills currently. She and were agreeable to her proceeding with urgent surgery for appendectectomy. Patient's medical history is notable for pericardial effusion requiring pericardial window and drainage (done at [facility] in 2018), aortic valve cusp abnormality, nonrheumatic mitral valve insufficiency, paroxysmal atrial flutter, splenic infarct on aspirin, mild pulmonary hypertension and breast cancer. Patient previously saw [facility] for cardiology management, last office visit was back in 02/2022. Patient was noted to be doing very well at that time. Her most recent TTE from 02/2020 showed an EF 60%, normal diastolic function, mild MV insufficiency, mild TV insuffiiency, trivial AV insufficiency, otherwise no concerning findings. Was noted that patient had a run of paroxysmal Afib at [facility] when she had her pericardial effusion and had no recurrence after that. Cardiology noted that there was no need for rate control or anticoagulation at that time. She was continued on aspirin but did not require any other medications for medical management going forward. Patient states she has been doing well since then. Her only home medications are aspirin and anastrozole. In the ED, EKG showed NSR, no ST changes. CXR showed no acute findings. CT abdomen pelvis showed retrocecal appendix w/ findings consistent w/ acute appendicitis, along w/ associated reactive edema of the adjacent cecal tip and terminal ileum, no concern for SBO. Labs notable for WBC count 24.6, BMP normal, UA with 100 leuk esterase, negative nitrites, 3+ bacteria. Low grade fever noted but otherwise was hemodynamically stable on room air. Patient was started on IV Zosyn in the ED and taking urgently to the OR in the mid morning for appendectomy. [facility] Medical History (Updated 09/01/23 @ 06:[address] Domingo Good MD) Aortic valve cusp abnormality Breast cancer Chest pain Elevated LFTs Leukocytosis Non-rheumatic tricuspid valve insufficiency Nonrheumatic mitral (valve) insufficiency Paroxysmal atrial flutter Pericardial effusion (~12/26/17) Pulmonary nodule Secondary pulmonary arterial hypertension Splenic infarct Home Medications multivitamin 1 ea PO DAILY supplement 04/06/16 [History Last Taken 12/17/17 08:00] aspirin 81 mg chewable tablet 81 mg PO DAILY@0800 ##30 04/08/16 [Rx Last Taken 12/17/17 23:00] anastrozole 1 mg tablet 1 mg PO DAILY 03/27/22 [History Last Taken Unknown] Allergy/AdvReac Type Severity Reaction Status Date / Time No Known Allergies Allergy Verified 09/01/23 05:11 Family History Brother Colon cancer lung cancer Sister Heart disease SSS pacemaker age 76 Surgical History History of hysterectomy History of lumpectomy of left breast Social History Smoking Status: Never smoker alcohol intake: current alcohol intake frequency: 0-2 drinks per day substance use type: does not use caffeine: Yes Type: tea Number of servings: 1 ROS Constitutional Constitutional: Denies chills, fatigue, fever(s) or weakness Eyes Eyes: Denies change in vision Cardiovascular Cardiovascular: Denies chest pain Respiratory/Chest Respiratory/Chest: Denies shortness of breath at rest Gastrointestinal Gastrointestinal: Reports abdominal pain, constipation and nausea; Denies diarrhea or vomiting Genitourinary Genitourinary: Reports dysuria Physical Exam Const alert and oriented x3 Constitutional Narrative: Pleasant elderly female, mild to moderate discomfort due to abdominal pain, otherwise conversing normally. General Appearance: cooperative HEENT normocephalic, head/scalp atraumatic, hearing grossly normal bilaterally and nasal mucous membranes and turbinates normal Eyes PERRL, EOMs intact bilaterally and conjunctivae normal Neck full ROM Chest inspection of chest normal Resp normal respiratory effort, normal air movement, no use of accessory muscles and clear to auscultation bilaterally Cardio regular rate, regular rhythm, no murmurs and peripheral pulses 2+ throughout GI GI Narrative: Moderate tenderness to palpation in central abdomen down to RLL. No rebound tenderness or guarding noted. Non-distended and fairly soft on palpation. Back/Spine normal ROM Extremity normal to inspection, full ROM and no pedal edema Skin no rashes or lesions noted Neuro moves all extremities and no focal motor deficits Speech: speech normal Psych mental status grossly normal Lab / Micro Data 09/01/23 05:26 09/01/23 05:26 Labs: Laboratory Results - last 24 hr 09/01/23 05:26: WBC 24.6 H, RBC 4.24, Hgb 12.9, Hct 39.3, MCV 92.7, MCH 30.4, MCHC 32.8, RDW Std Deviation 42.0, RDW Coeff of Rick 12.2, Plt Count 289, MPV 11.4, Immature Gran % (Auto) 0.700, Neut % (Auto) 83.1 H, Lymph % (Auto) 2.9 L, [place] % (Auto) 12.9 H, Eos % (Auto) 0.0, Baso % (Auto) 0.4, Absolute Neuts (auto) 20.4 H, Absolute Lymphs (auto) 0.72 L, Nucleated RBC % 0, Diff Path Review September, Sodium 138, Potassium 4.2, Chloride 106, Carbon Dioxide 25.0, Anion Gap 7, BUN 18, Creatinine 0.86, Estim Creat Clear Calc 44.30, Est GFR (MDRD) Af Amer 82, Est GFR (MDRD) Non-Af 67, BUN/Creatinine Ratio 21.0 H, Glucose 149 H, Calcium 8.4 L 09/01/23 05:49: Urine Color Yellow, Urine Clarity Cloudy, Urine pH 5.0, Ur Specific [place] 1.025, Urine Protein 30 H, Urine Glucose (UA) Normal, Urine Ketones 50 H, Urine Occult Blood 25 H, Urine Nitrite Negative, Urine Bilirubin 1 H, Urine Urobilinogen 1 H, Ur Leukocyte Esterase 100 H, Urine RBC 0 SEEN, Urine WBC 0 SEEN, Ur Squamous Epith Cells 0 SEEN, Urine Bacteria 3+, Hyaline Casts 0-5 SEEN, Urine Mucus 0 SEEN Imaging Radiology Impression Abdomen/Pelvis CT 09/01/23 05:21 IMPRESSION: Retrocecal appendix with CT findings of acute appendicitis. Lack of enhancement of the wall of the cecal tip, consistent with necrosis/gangrene, with extensive periappendiceal inflammatory changes along with periappendiceal fluid, but no ring-enhancing abscess identified at this time. Associated reactive edema of the adjacent cecal tip and terminal ileum. No findings of small bowel obstruction. Nonstandard communication protocol initiated. Electronically Signed: Kd Little MD at 6:49 EDT , ADDENDUM: 09/01/23 0701 IMPRESSION: Retrocecal appendix with CT findings of acute appendicitis. Lack of enhancement of the wall of the cecal tip, consistent with necrosis/gangrene, with extensive periappendiceal inflammatory changes along with periappendiceal fluid, but no ring-enhancing abscess identified at this time. Associated reactive edema of the adjacent cecal tip and terminal ileum. No findings of small bowel obstruction. Nonstandard communication protocol initiated. N.B. : The above Results were Read Back by Kd Little MD to Domingo Good MD, and understanding confirmed on 09/01/2023 06:54:32 (ET). Electronically Signed: Kd Little MD at 6:49 EDT , Charges/Coding Visit Charges Inpatient E&M: 83847 Subs Hosp L2
--- NOTE | 2023-09-01 08:35 | RAD_ITS ---
STUDY: XR Chest 1 View 09/01/2023 8:32 AM REASON FOR EXAM: Female, 83 years old. preop eval COMPARISON: 7 TECHNIQUE: XR Chest 1 View FINDINGS: There is no demonstrated pleural abnormality. Normal heart size. Normal mediastinum. Normal wilner. Prominent appearing increased interstitial lung markings. Normal visualized pulmonary arteries. There is atherosclerotic calcification of the aortic arch with tortuosity. There are diffuse degenerative changes of the visualized thoracic spine. There is degenerative osteoarthritis of the bilateral shoulders. There are no acute findings of the upper abdomen. RAD/Chest 1 View (Portable) IMPRESSION: There are no acute findings. Electronically Signed: Bao Jacobo MD at 16:19 EDT ,
--- NOTE | 2023-09-01 08:56 | ED.RN ---
CONSENT NOT FILLED OUT BY SURGEON IN ED. NOT ABLE TO SIGN
[2023-09-01] MEDS: Bupiv/Epi 0.25% 30 ML Vial (11:43)
--- NOTE | 2023-09-01 12:24 | PCM.OPRPT ---
Report of Operation Date of Procedure: 09/01/23 Pre-Operative Diagnosis: Acute appendicitis with appendicolith Post-Operative Diagnosis: Acute, complicated appendicitis Surgery/Procedure Performed:: Laparoscopic appendectomy with drain placement Description of Surgical Findings:: ? Purulent fluid upon mobilization of the right colon and severely inflamed appendiceal base ? Freely present appendicolith within the peritoneal cavity ? Intact staple line Surgeon: Siddhartha Ulloa foiling machine operator: Concepción Drummond Type of Anesthesia: General/Supplemental Anesthesiologist: Dinesh Rodriguez Specimen's removed: 1. Peritoneal abscess fluid 2. Appendicolith 3. Appendix Drains: 15 German round Igor Estimated Blood Loss (mL): 50 Description of Procedure: After appropriate identification in the preoperative holding area, the patient was brought to the operating room and placed supine on the operating room table. Antibiotics had been preoperatively administered. Patient was then induced with general endotracheal anesthetic. The abdomen was prepped and draped in usual sterile fashion. Formal timeout was conducted to confirm both the patient and the procedure. A supraumbilical incision was made and carried down to the level of the fascia which was sharply opened. After opening the peritoneum in like fashion a finger sweep was made to confirm position, and a balloon trocar was placed and pneumoperitoneum was established to 15 mmHg. Patient was positioned in Trendelenburg with the left side down. 2 additional 5 mm trocars were placed in the left lower quadrant and suprapubic positions. The peritoneum was inspected and there were no signs of inadvertent injury from this Reilly entry. The appendix was not immediately able to be visualized so I attempted to bluntly mobilize the cecum away from the lateral sidewall and immediately met return of cortes purulent fluid. A suction inter com servicer with Luken's trap was called for and was then used to collect a peritoneal specimen for Gram stain and culture. The adhesion between the colon and the sidewall was bluntly and I began medial mobilization of the colon after lysing several lateral adhesions. Inferiorly I lysed several adhesions to the severely inflamed terminal ileum after extending them out with the use of laparoscopic LigaSure device. Still, the location of the appendix was not immediately apparent but at this point I did note a very injected serosa in the crux of the terminal ileum and the cecum/colonic mesentery. Stain directly against the serosa I probed alongside of this structure until I found myself opening the pechanga plane between the cecum and the peritoneal cavity (realizing that part of the peritoneal lining had been lifted with the original dissection). In this envelope identified a severely inflamed appendix and also a free-floating appendicolith. This appendicolith was promptly placed into an Endo Catch bag and delivered from the peritoneum to avoid loss and further contamination. I then set about carefully using the LigaSure device to free the distal tip of the appendix from its deeper attachments by dividing the mesoappendix directly against the appendix. Unfortunately the appendix was exceptionally friable from its inflammation and prior perforation and it did tear during this manipulation. Once I was able to get the distal tip of the appendix freed I worked proximally towards the appendiceal base and found what appeared to be reasonably healthy tissue that would accommodate a staple line. Then the base of the appendix was sealed and amputated with the use of an Endo SYLVESTER stapler. The appendix pieces were placed in an Endo Catch bag. The staple line was inspected for intactness and hemostasis. After hemostasis was confirmed the surgical site was reexamined for any further signs of appendix material and the appendix was removed from the peritoneum at the umbilical port site. The surgical cavity was copiously irrigated with 3 L of sterile saline and suctioned free of the peritoneum. Wanting to both reclaim the last of this irrigation as well as have a way of monitoring our staple line, I placed a 15 German round Igor drain in the right paracolic gutter adjacent to the staple line under laparoscopic visualization and secured this at the skin using a 3-0 nylon suture. Pneumoperitoneum was then evacuated and the supraumbilical port site fascia was closed with #1 Vicryl in a [id number] fashion. The port sites were infiltrated with approximately 20 mL local anesthetic. The skin of each port site was closed with 4-0 Monocryl in a subcuticular fashion. Steri-Strips and OpSite dressings were applied. Patient tolerated procedure well without any apparent complications. They were awoken from general anesthetic without issue and transferred to post anesthesia care unit for ongoing recovery. Complications None Procedures Digestive [id number]: [id number] Laparoscopy appendectomy
[2023-09-01] MEDS: 0.9% Normal Saline (1000mL) 1,000 ML 125 ML IV ×2 (13:49→20:39)
[2023-09-01] MEDS: Pantoprazole Sodium 40 MG in 0.9% Normal Saline (100mL MB+) 100 ML 330 MG IV (15:19)
[2023-09-01] MEDS: Ketorolac 15 MG/ML Vial IV (17:39)
[2023-09-01] MEDS: Piperacil/Tazobactam 3.375 GM in 0.9% Normal Saline (50mL MB+) 50 ML IV (20:39)
[2023-09-02] VITALS (7 sets, daily range): BP systolic 91–119; BP diastolic 50–73; PULSE 75–91; RESP 16–18; TEMP 36.3–36.9; O2SAT 92–98
[2023-09-02] MEDS: Ketorolac 15 MG/ML Vial IV ×5 (01:25→23:39)
[2023-09-02] MEDS: 0.9% Normal Saline (1000mL) 1,000 ML 125 ML IV (04:36)
[2023-09-02] MEDS: Piperacil/Tazobactam 3.375 GM in 0.9% Normal Saline (50mL MB+) 50 ML IV ×3 (06:36→21:14)
[2023-09-02 07:21] LABS: Absolute Lymphocyte Count 0.43 X10^3/uL (0.83-4.51); Absolute Neutrophil Count 14.7 X10^3/uL (2.0-7.7); Basophil# 0.03 X10^3/uL; Basophil% 0.2 % (0-1); Hematocrit 32.3 % (37-47); Hemoglobin 10.1 g/dL (12.0-15.0); Lymphocyte # 0.43 X10^3/ul (0.83-4.51); Lymphocyte % 2.5 % (19-41); Mean Corp Hgb Conc 31.3 g/dL (32-36); Mean Corpuscular Hgb 29.9 pg (27.0-32.0); Mean Corpuscular Volume 95.6 fL (81-99); Mean Platelet Vol. 11.5 fl (6.2-12.0); Monocyte% 10.5 % (0-10); NRBC Flagged by Analyzer 0 % (0-5); Neutrophil # 14.74 X10^3/uL (2.7-7.7); Neutrophil % 86.4 % (47-70); POSITIVE DIFFERENTIAL YES; Platelet Count 237 K/mm3 (150-450); RBC Distribution Width CV 12.6 % (11.6-14.6); RBC Distribution Width SD 43.8 fl (35.1-43.9); Red Blood Count 3.38 M/mm3 (4.2-5.4); White Blood Count 17.1 K/mm3 (4.4-11.0)
[2023-09-02 07:36] LABS: Differential Indicated SCAN CRITERIA MET
[2023-09-02 08:07] LABS: Anion Gap 4 (5-15); BUN 29 mg/dL (7-18); Calcium,Total 7.1 mg/dL (8.5-10.1); Chloride 120 mmol/L (98-107); Creatinine, Serum 0.78 mg/dL (0.55-1.02); EST Glomerular Filtration Rate 75 mL/min (>60); Est Glom Filt Rate - Afr Amer 91 mL/min (>60); Estimated Creatinine Clearance 47.63 ml/min; Glucose 147 mg/dL (74-106); Magnesium 2.3 mg/dL (1.6-2.6); Phosphorus 1.8 mg/dL (2.5-4.9); Potassium 4.1 mmol/L (3.5-5.1); Sodium Level 147 mmol/L (136-145)
--- NOTE | 2023-09-02 08:47 | PN.SURG_ITS ---
Subjective Subjective Patient seen and examined during AM rounds. She is found sitting out of bed in a chair. She reports that she is feeling better. She has tolerated a couple of water, taken slowly, and continues to report an appetite. She has not yet experienced return of bowel function, however. Objective Data Objective Data Vital Signs: Vital Signs Temp Pulse Resp BP Pulse Ox O2 Del Method O2 Flow Rate 98.1 F 83 18 91/60 98 Room Air 2 09/02/23 08:45 09/02/23 08:45 09/02/23 08:45 09/02/23 08:45 09/02/23 08:45 09/02/23 08:45 09/01/23 15:21 Oxygen Flow Rate (L/min) 2 Oxygen Delivery Method Room Air Weight: 124 lb 8.979 oz Body Mass Index (BMI) 21.4 Intake & Output: Intake and Output for Last 24 Hours 08/31/23 09/01/23 09/02/23 23:59 23:59 23:59 Intake Total 2064.17 / 2064.17 1043.75 / 1043.75 Output Total 220 / 370 380 / 380 Balance 1844.17 / 1694.17 663.75 / 663.75 Lab / Micro Data 09/02/23 06:03 09/02/23 06:03 Labs: Laboratory Results - last 24 hr 09/02/23 06:03: WBC 17.1 H, RBC 3.38 L, Hgb 10.1 L, Hct 32.3 L, MCV 95.6, MCH 29.9, MCHC 31.3 L, RDW Std Deviation 43.8, RDW Coeff of Rick 12.6, Plt Count 237, MPV 11.5, Immature Gran % (Auto) 0.400, Neut % (Auto) 86.4 H, Lymph % (Auto) 2.5 L, [place] % (Auto) 10.5 H, Eos % (Auto) 0.0, Baso % (Auto) 0.2, Absolute Neuts (auto) 14.7 H, Absolute Lymphs (auto) 0.43 L, Nucleated RBC % 0, Sodium 147 H, Potassium 4.1, Chloride 120 H, Carbon Dioxide 23.0, Anion Gap 4 L, BUN 29 H, Creatinine 0.78, Estim Creat Clear Calc 47.63, Est GFR (MDRD) Af Amer 91, Est GFR (MDRD) Non-Af 75, BUN/Creatinine Ratio 37.0 H, Glucose 147 H, Calcium 7.1 L, Phosphorus 1.8 L, Magnesium 2.3 Radiography Diagnostic Testing: Radiology Impression Chest X-Ray 09/01/23 08:35 IMPRESSION: There are no acute findings. Electronically Signed: Bao Jacobo MD at 16:19 EDT Reading Location ID and State: [facility] / [place] , Service support , Physical Exam Const oriented x3 and no apparent distress Resp normal respiratory effort GI GI Narrative: Mildly distended, operative dressings are intact with seropurulent drainage around patient's suprapubic drain exit site, drain with mix of serous and turbid fluid, soft, minimally tender to palpation Assessment & Plan Assessment/Plan (1) Acute perforated appendicitis: PLAN: Patient is an 83-year-old female postoperative day 1 from laparoscopic appendectomy with drain placement for perforated appendicitis. She appears to be doing better today with stable vital signs and reports of decreased abdominal pain. While she reports an appetite as well she has not yet experienced return of bowel function. I have shared with her that she is at a high risk for developing a postoperative ileus and I would like for her to go slowly with reinstitution of oral intake. She expresses understanding and wishes to proceed as recommended. I have encouraged her to begin ambulating in the hallways and we will plan to check back this afternoon to see how she is progressing. In the interim we will keep n.p.o. except for sips of water, IV fluid resuscitation, and IV antibiotics with empiric Zosyn therapy. Appreciate medicine consultation for patient's other comorbidities. Siddhartha Ulloa MD General Surgery Endocrine Surgery Pager: [facility] [address] [place] [address], [facility], [address] [place] [id number] Office: [phone] Charges/Coding Visit Charges Inpatient E&M: 88684 Subs Hosp L2
[2023-09-02] MEDS: Aspirin 81 MG TAB.CHEW PO (09:03)
[2023-09-02] MEDS: Anastrozole 1 MG TABLET PO (09:03)
[2023-09-02] MEDS: Lactated Ringers 1,000 ML 100 ML IV ×2 (09:15→18:39)
[2023-09-02] MEDS: Pantoprazole Sodium 40 MG in 0.9% Normal Saline (100mL MB+) 100 ML 330 MG IV (10:34)
--- NOTE | 2023-09-02 10:59 | PCM.PN.HOSP ---
Reason for Visit Reason for Visit: Diagnoses Elevated white blood cell count, unspecified (09/01/23) Acute appendicitis with perforation, localized peritonitis, and gangrene, without abscess (09/01/23) Unspecified acute appendicitis (09/01/23) Subjective Subjective No acute events overnight. Patient seen at bedside this morning. Sitting up in bedside chair, conversing normally, no acute distress. Patient appears well this morning, denies any abdominal pain or discomfort. She does note that she has not passed any gas or had any bowel movements to this point. Patient stated that Dr. Ulloa saw her earlier this morning and wanted to continue keep her n.p.o for now. She did have a couple sips of water and tolerated this without issue. Does report having some appetite. Otherwise, denies any fevers or chills. No other acute concerns this morning. Objective Data Objective Data Vital Signs: Vital Signs Temp Pulse Resp BP Pulse Ox O2 Del Method O2 Flow Rate 98.1 F 86 18 91/60 98 Room Air 2 09/02/23 08:45 09/02/23 10:51 09/02/23 08:45 09/02/23 08:45 09/02/23 08:45 09/02/23 08:48 09/01/23 15:21 Oxygen Flow Rate (L/min) 2 Oxygen Delivery Method Room Air Weight: 56.5 kg Body Mass Index (BMI) 21.4 Intake & Output: Intake and Output for Last 24 Hours 08/31/23 09/01/23 09/02/23 23:59 23:59 23:59 Intake Total 2064.17 / 2064.17 1787.08 / 1787.08 Output Total 220 / 370 510 / 510 Balance 1844.17 / 1694.17 1277.08 / 1277.08 Lab / Micro Data 09/02/23 06:03 09/02/23 06:03 Labs: Laboratory Results - last 24 hr 09/02/23 06:03: WBC 17.1 H, RBC 3.38 L, Hgb 10.1 L, Hct 32.3 L, MCV 95.6, MCH 29.9, MCHC 31.3 L, RDW Std Deviation 43.8, RDW Coeff of Rick 12.6, Plt Count 237, MPV 11.5, Immature Gran % (Auto) 0.400, Neut % (Auto) 86.4 H, Lymph % (Auto) 2.5 L, [place] % (Auto) 10.5 H, Eos % (Auto) 0.0, Baso % (Auto) 0.2, Absolute Neuts (auto) 14.7 H, Absolute Lymphs (auto) 0.43 L, Nucleated RBC % 0, Sodium 147 H, Potassium 4.1, Chloride 120 H, Carbon Dioxide 23.0, Anion Gap 4 L, BUN 29 H, Creatinine 0.78, Estim Creat Clear Calc 47.63, Est GFR (MDRD) Af Amer 91, Est GFR (MDRD) Non-Af 75, BUN/Creatinine Ratio 37.0 H, Glucose 147 H, Calcium 7.1 L, Phosphorus 1.8 L, Magnesium 2.3 Radiography Diagnostic Testing: Radiology Impression Chest X-Ray 09/01/23 08:35 IMPRESSION: There are no acute findings. Electronically Signed: Bao Jacobo MD at 16:19 EDT Reading Location ID and State: [facility] / [place] , Service support , Physical Exam Const alert and oriented x3 Constitutional Narrative: Pleasant elderly female, sitting up comfortably in bedside chair, conversing normally, in no acute distress. General Appearance: cooperative HEENT normocephalic, head/scalp atraumatic, hearing grossly normal bilaterally and nasal mucous membranes and turbinates normal Eyes PERRL, EOMs intact bilaterally and conjunctivae normal Neck full ROM Chest inspection of chest normal Resp normal respiratory effort, normal air movement, no use of accessory muscles and clear to auscultation bilaterally Cardio regular rate, regular rhythm, no murmurs and peripheral pulses 2+ throughout GI GI Narrative: Mild abdominal distention, otherwise soft and minimally tender. Operative dressings intact with seropurulent drainage around patient's suprapubic drain site. Drain with mix of serous and turbid fluid. Back/Spine normal ROM Extremity normal to inspection, full ROM and no pedal edema Skin no rashes or lesions noted Neuro moves all extremities and no focal motor deficits Speech: speech normal Psych mental status grossly normal Assessment & Plan Assessment/Plan (1) Acute appendicitis: (2) Leukocytosis: PLAN: Plan Patient is an 83 year old female who presented to [facility] ED on 09/01/2023 with acute abdominal pain. Diagnosed with acute appendicitis, admitted under general surgery. Medicine consulted for medical management. 1. Acute appendicitis - General surgery primary. S/p laparoscopic appendectomy w/ drain placement w/ Dr. Ulloa on 08/31. Was noted that patient had purulent fluid upon mobilization of right colon and severely inflamed appendiceal base w/ freely present appendicolith w/in the peritoneal cavity. Patient doing well on postop day 1, minimal pain and has appetite but no return of bowel function yet. Will remain n.p.o. for now per surgery with plan for slow reinstitution of oral intake, as she is high risk for developing a postoperative ileus. Continue treatment with IV Zosyn, maintenance IV fluids, IV Dilaudid for pain management. Further management per surgery. 2. History of splenic infarct - Home baby aspirin held on 08/31, resumed on 09/01. 3. History of breast cancer - Continue home anastrozole. 4. History of multiple cardiac conditions - History of pericardial effusion requiring pericardial window and drainage (done at [facility] in 2018), aortic valve cusp abnormality, nonrheumatic mitral valve insufficiency, episode of atrial flutter, splenic infarct on aspirin, mild pulmonary hypertension. See HPI above for further details. Last cardiology visit in 2021, patient very stable at that time with good improvement in TTE findings. EKG w/ NSR, no ST changes on admit. CXR nonacute. No cardiac specific needs while inpatient, continue outpatient follow up as needed. Total clinical time spent by myself addressing the patient's medical issues, reviewing all the data, and collaborating with patient's care team: 35 minutes. Charges/Coding Visit Charges Inpatient E&M: 50899 Subs Hosp L2
[2023-09-02] MEDS: 0.9% Saline Lock 10 ML Syringe IV (21:14)
[2023-09-03 02:00] VITALS: BP 107/66; PULSE 74; RESP 16; TEMP 36.6; O2SAT 95
[2023-09-03] MEDS: Lactated Ringers 1,000 ML 100 ML IV ×2 (05:11→15:27)
[2023-09-03] MEDS: Piperacil/Tazobactam 3.375 GM in 0.9% Normal Saline (50mL MB+) 50 ML IV ×3 (05:11→22:02)
[2023-09-03] MEDS: Ketorolac 15 MG/ML Vial IV ×3 (05:12→17:05)
[2023-09-03 06:22] LABS: Absolute Lymphocyte Count 0.67 X10^3/uL (0.83-4.51); Absolute Neutrophil Count 15.5 X10^3/uL (2.0-7.7); Basophil# 0.04 X10^3/uL; Basophil% 0.2 % (0-1); Eosinophil# 0.01 X10^3/uL; Eosinophils% 0.1 % (0-5); Hematocrit 34.2 % (37-47); Hemoglobin 10.7 g/dL (12.0-15.0); Lymphocyte # 0.67 X10^3/ul (0.83-4.51); Lymphocyte % 3.7 % (19-41); Mean Corp Hgb Conc 31.3 g/dL (32-36); Mean Corpuscular Hgb 30.1 pg (27.0-32.0); Mean Corpuscular Volume 96.3 fL (81-99); Mean Platelet Vol. 11.7 fl (6.2-12.0); Monocyte% 9.9 % (0-10); NRBC Flagged by Analyzer 0 % (0-5); Neutrophil # 15.51 X10^3/uL (2.7-7.7); Neutrophil % 85.4 % (47-70); POSITIVE DIFFERENTIAL YES; Platelet Count 299 K/mm3 (150-450); RBC Distribution Width CV 12.7 % (11.6-14.6); RBC Distribution Width SD 45.1 fl (35.1-43.9); Red Blood Count 3.55 M/mm3 (4.2-5.4); White Blood Count 18.2 K/mm3 (4.4-11.0)
[2023-09-03 06:29] LABS: Differential Indicated SCAN CRITERIA MET
[2023-09-03 06:49] LABS: Anion Gap 4 (5-15); BUN 34 mg/dL (7-18); BUN/Creat Ratio 43.8 RATIO (10-20); Calcium,Total 7.6 mg/dL (8.5-10.1); Chloride 115 mmol/L (98-107); Creatinine, Serum 0.78 mg/dL (0.55-1.02); EST Glomerular Filtration Rate 76 mL/min (>60); Est Glom Filt Rate - Afr Amer 92 mL/min (>60); Estimated Creatinine Clearance 47.63 ml/min; Glucose 105 mg/dL (74-106); Magnesium 2.4 mg/dL (1.6-2.6); Phosphorus 1.4 mg/dL (2.5-4.9); Potassium 3.6 mmol/L (3.5-5.1); Sodium Level 143 mmol/L (136-145)
--- NOTE | 2023-09-03 07:49 | PCM.PN.SRG ---
Subjective Subjective Patient seen and examined during AM rounds. She notes that she tolerated advancement to clear liquid diet without issue. She states that she also had lots of gas overnight and is overall feeling well. She does remark that she is concerned much of her antibiotic did not make its way intra venous yesterday as there was infiltration of her IV site. Objective Data Objective Data Vital Signs: Vital Signs Temp Pulse Resp BP Pulse Ox O2 Del Method O2 Flow Rate 97.8 F 74 16 107/66 95 Room Air 2 09/03/23 02:00 09/03/23 02:00 09/03/23 02:00 09/03/23 02:00 09/03/23 02:00 09/03/23 02:00 09/01/23 15:21 Oxygen Flow Rate (L/min) 2 Oxygen Delivery Method Room Air Weight: 124 lb 8.979 oz Body Mass Index (BMI) 21.4 Intake & Output: Intake and Output for Last 24 Hours 09/01/23 09/02/23 09/03/23 23:59 23:59 23:59 Intake Total 2064.17 / 2064.17 2777.08 / 2777.08 1050 / 1050 Output Total 220 / 370 740 / 1110 580 / 580 Balance 1844.17 / 1694.17 2037.08 / 1667.08 470 / 470 Lab / Micro Data 09/03/23 05:35 09/03/23 05:35 Labs: Laboratory Results - last 24 hr 09/02/23 06:03: Sodium 147 H, Potassium 4.1, Chloride 120 H, Carbon Dioxide 23.0, Anion Gap 4 L, BUN 29 H, Creatinine 0.78, Estim Creat Clear Calc 47.63, Est GFR (MDRD) Af Amer 91, Est GFR (MDRD) Non-Af 75, BUN/Creatinine Ratio 37.0 H, Glucose 147 H, Calcium 7.1 L, Phosphorus 1.8 L, Magnesium 2.3 09/03/23 05:35: WBC 18.2 H, RBC 3.55 L, Hgb 10.7 L, Hct 34.2 L, MCV 96.3, MCH 30.1, MCHC 31.3 L, RDW Std Deviation 45.1 H, RDW Coeff of Rick 12.7, Plt Count 299, MPV 11.7, Immature Gran % (Auto) 0.700, Neut % (Auto) 85.4 H, Lymph % (Auto) 3.7 L, [place] % (Auto) 9.9, Eos % (Auto) 0.1, Baso % (Auto) 0.2, Absolute Neuts (auto) 15.5 H, Absolute Lymphs (auto) 0.67 L, Nucleated RBC % 0, Sodium 143, Potassium 3.6, Chloride 115 H, Carbon Dioxide 24.0, Anion Gap 4 L, BUN 34 H, Creatinine 0.78, Estim Creat Clear Calc 47.63, Est GFR (MDRD) Af Amer 92, Est GFR (MDRD) Non-Af 76, BUN/Creatinine Ratio 43.8 H, Glucose 105, Calcium 7.6 L, Phosphorus 1.4 L, Magnesium 2.4 Physical Exam Const oriented x3 and no apparent distress Resp normal respiratory effort GI GI Narrative: Mild distention, soft, supraumbilical and left lower quadrant port sites with dressings are clean dry and intact while the suprapubic drain site dressing is soiled with some seropurulent fluid. There is scant seropurulent fluid in the patient's SANKET drain. Patient is minimally tender to palpation. Assessment & Plan Assessment/Plan (1) Acute perforated appendicitis: PLAN: Patient is an 83-year-old female postoperative day 2 from laparoscopic appendectomy with drain placement for perforated appendicitis. She continues to demonstrate clinical improvements and has experienced return of bowel function. She is tolerating a clear liquid diet without issue. I do remain concerned for her potential for a staple line leak versus abscess formation given the friability of her tissues at the time of the operation. Her white blood cell count did increase by 1 point today. We will continue to watch this closely and follow-up per micro section from cultures obtained intraoperatively. For now we will continue empiric IV Zosyn. Appreciate medicine consultation for patient's other comorbidities. Siddhartha Ulloa MD General Surgery Endocrine Surgery Pager: [facility] [address] [place] [address], [address] [place] [address] Office: [phone] Charges/Coding Visit Charges Inpatient E&M: 46639 Subs Hosp L2
[2023-09-03 08:13] LABS: Differential Comment SCANNED
[2023-09-03] MEDS: Potassium Phosphate 40 MM in 0.9% Normal Saline (500mL Bag) 500 ML 62.5 MM IV (08:22)
[2023-09-03 08:33] VITALS: BP 113/62; PULSE 86; RESP 18; TEMP 36.7; O2SAT 94
[2023-09-03] MEDS: Anastrozole 1 MG TABLET PO (08:36)
[2023-09-03] MEDS: Aspirin 81 MG TAB.CHEW PO (08:36)
--- NOTE | 2023-09-03 09:30 | CASEMGMT ---
ANNA QUIROZ Assessment: Face to Face with pt for initial transition planning/care coordination assessment. ANNA QUIROZ introduced self and role at [facility], pt voices understanding and consents to assessment. Pt is A&O x4 and answers all questions appropriately at this time. Pt sitting up in bed in no distress. Care providers, pharmacy, and demographics verified/updated. Admitting Dx: appendicitis PCP:[facility] Specialists:[facility] Preferred Pharmacy: [facility] Insurance: [facility] [place] Prescription Benefit: yes LNOK: [place] [employer], Living Arrangements: Pt lives with in a mobile home with 4 steps to enter with a rail. Pt reports she is I in ADL's and denies concerns at home. Transportation: Pt drives self and denies concerns with transportation. DME:cane, doesn't use HHC/SNF: Denies hx of Pt states no concerns with going home at time of dc. Pt states no further concerns/needs. CM to follow. Advised pt to ask CM if any further question/concerns/needs arise, voices understanding. Pt Goal: Home Plan: Home Tomas CASTILLO CM
[2023-09-03] MEDS: Pantoprazole Sodium 40 MG in 0.9% Normal Saline (100mL MB+) 100 ML 330 MG IV (09:54)
[2023-09-03 11:00] VITALS: PULSE 92
[2023-09-03 14:09] VITALS: BP 115/58; PULSE 100; RESP 18; TEMP 36.8; O2SAT 95
[2023-09-03 20:00] VITALS: BP 116/57; PULSE 86; RESP 15; TEMP 36.9; O2SAT 94
[2023-09-03 22:00] VITALS: BP 131/72; PULSE 94; RESP 15; O2SAT 93; O2SAT 94
--- NOTE | 2023-09-03 23:37 | NURSING ---
2207: pt ambulated to the bathroom. tele monitor alarming tachy with HR 170's. pt denies any c/o chest pain, sob or palpitations. assisted back to bed and vitals done. BP 131/72, HR down to 94, 93% RA. K level noted at 3.6 and Mag level noted at 2.4 today. will continue to monitor
--- NOTE | 2023-09-03 23:46 | NURSING ---
NSR, HR 89-90. PT RESTING WITHOUT S/S DISTRESS
[2023-09-04] VITALS (13 sets, daily range): BP systolic 114–133; BP diastolic 64–78; PULSE 84–92; RESP 15–18; TEMP 36.4–37.1; O2SAT 88–94
[2023-09-04] MEDS: Ketorolac 15 MG/ML Vial IV ×3 (00:15→15:06)
[2023-09-04] MEDS: Lactated Ringers 1,000 ML 100 ML IV (01:33)
[2023-09-04] MEDS: Piperacil/Tazobactam 3.375 GM in 0.9% Normal Saline (50mL MB+) 50 ML IV ×3 (06:13→21:35)
[2023-09-04 07:18] LABS: Absolute Lymphocyte Count 1.09 X10^3/uL (0.83-4.51); Absolute Neutrophil Count 9.3 X10^3/uL (2.0-7.7); Basophil# 0.06 X10^3/uL; Basophil% 0.5 % (0-1); Eosinophil# 0.31 X10^3/uL; Eosinophils% 2.6 % (0-5); Hematocrit 33.9 % (37-47); Hemoglobin 10.8 g/dL (12.0-15.0); Lymphocyte # 1.09 X10^3/ul (0.83-4.51); Lymphocyte % 9.1 % (19-41); Mean Corp Hgb Conc 31.9 g/dL (32-36); Mean Corpuscular Hgb 29.8 pg (27.0-32.0); Mean Corpuscular Volume 93.6 fL (81-99); Mean Platelet Vol. 11.6 fl (6.2-12.0); Monocyte% 9.2 % (0-10); NRBC Flagged by Analyzer 0 % (0-5); Neutrophil # 9.32 X10^3/uL (2.7-7.7); Neutrophil % 77.6 % (47-70); Platelet Count 299 K/mm3 (150-450); RBC Distribution Width CV 12.7 % (11.6-14.6); RBC Distribution Width SD 43.8 fl (35.1-43.9); Red Blood Count 3.62 M/mm3 (4.2-5.4)
--- NOTE | 2023-09-04 08:34 | PN.SURG_ITS ---
Subjective Subjective Patient tolerated full liquids. She reports she is passing flatus. No bowel movements yet. She says she is not having much pain. Denies any nausea or vomiting. Objective Data Objective Data Vital Signs: Vital Signs Temp Pulse Resp BP Pulse Ox O2 Del Method O2 Flow Rate 98.7 F 90 18 124/66 H 94 Nasal Cannula 2 09/04/23 07:45 09/04/23 07:48 09/04/23 07:48 09/04/23 07:45 09/04/23 07:48 09/04/23 07:48 09/04/23 07:48 Oxygen Flow Rate (L/min) 2 Oxygen Delivery Method Nasal Cannula Weight: 124 lb 8.979 oz Body Mass Index (BMI) 21.4 Intake & Output: Intake and Output for Last 24 Hours 09/02/23 09/03/23 09/04/23 23:59 23:59 23:59 Intake Total 2777.08 / 2777.08 2773.3333 / 2773.3333 1050 / 1050 Output Total 740 / 1110 690 / 690 220 / 220 Balance 2037.08 / 1667.08 2083.3333 / 2083.3333 830 / 830 Lab / Micro Data 09/04/23 06:25 09/03/23 05:35 Labs: Laboratory Results - last 24 hr 09/04/23 06:25: WBC 12.0 H, RBC 3.62 L, Hgb 10.8 L, Hct 33.9 L, MCV 93.6, MCH 29.8, MCHC 31.9 L, RDW Std Deviation 43.8, RDW Coeff of Rick 12.7, Plt Count 299, MPV 11.6, Immature Gran % (Auto) 1.000 H, Neut % (Auto) 77.6 H, Lymph % (Auto) 9.1 L, [place] % (Auto) 9.2, Eos % (Auto) 2.6, Baso % (Auto) 0.5, Absolute Neuts (auto) 9.3 H, Absolute Lymphs (auto) 1.09, Nucleated RBC % 0 Micro: Microbiology 09/01/23 Unknown Fluid - Peritoneal Gram Stain - Final Physical Exam Const oriented x3 and no apparent distress Resp normal respiratory effort GI soft to palpation and non-tender Assessment & Plan Assessment/Plan (1) Acute perforated appendicitis: PLAN: Her abdomen is soft and nontender. Her white count is coming down. She tolerated full liquids and I will advance her to a transitional diet. Once she is tolerating a diet and having bowel movements the drain can be removed and she can be discharged. Will wait to see if she has any bowel movements today. Drain is serosanguineous. Continue antibiotics as the white counts have not returned all the way to normal. Encouraged ambulation and incentive spirometer. Stop IV fluids Paul Ruby MD Pager: [facility] [address] [place] [address], [address] [place] [phone] Office:
[2023-09-04 08:52] LABS: Pathologist Review Reviewed
[2023-09-04 08:54] LABS: Pathologist Review Reviewed
[2023-09-04 09:07] LABS: Pathologist Review Reviewed
[2023-09-04] MEDS: Anastrozole 1 MG TABLET PO (10:28)
[2023-09-04] MEDS: Aspirin 81 MG TAB.CHEW PO (10:28)
[2023-09-04] MEDS: 0.9% Normal Saline (1000mL) 1,000 ML 15 ML IV (10:33)
[2023-09-04 13:15] LABS: Anion Gap 5 (5-15); BUN 31 mg/dL (7-18); BUN/Creat Ratio 46.9 RATIO (10-20); Calcium,Total 7.9 mg/dL (8.5-10.1); Chloride 116 mmol/L (98-107); Creatinine, Serum 0.66 mg/dL (0.55-1.02); EST Glomerular Filtration Rate 91 mL/min (>60); Est Glom Filt Rate - Afr Amer 110 mL/min (>60); Estimated Creatinine Clearance 47.63 ml/min; Glucose 91 mg/dL (74-106); Phosphorus 2.1 mg/dL (2.5-4.9); Potassium 4.5 mmol/L (3.5-5.1); Sodium Level 144 mmol/L (136-145)
[2023-09-04] MEDS: Sodium Phosphate/Na Biphos 30 MMOL in 0.9% Normal Saline (250mL Bag) 250 ML 62.5 MMOL IV (15:07)
[2023-09-04] MEDS: 0.9% Saline Lock 10 ML Syringe IV (15:17)
[2023-09-05] VITALS (9 sets, daily range): BP systolic 127–140; BP diastolic 68–75; PULSE 73–93; RESP 15–16; TEMP 36.6–36.9; O2SAT 91–95
[2023-09-05] MEDS: Piperacil/Tazobactam 3.375 GM in 0.9% Normal Saline (50mL MB+) 50 ML IV ×3 (05:12→20:52)
[2023-09-05] MEDS: 0.9% Normal Saline (250mL Bag) 250 ML 15 ML IV (05:17)
[2023-09-05 07:12] LABS: Absolute Lymphocyte Count 1.42 X10^3/uL (0.83-4.51); Absolute Neutrophil Count 8.6 X10^3/uL (2.0-7.7); Basophil# 0.07 X10^3/uL; Basophil% 0.5 % (0-1); Eosinophil# 0.74 X10^3/uL; Eosinophils% 5.8 % (0-5); Hematocrit 31.1 % (37-47); Lymphocyte # 1.42 X10^3/ul (0.83-4.51); Lymphocyte % 11.1 % (19-41); Mean Corp Hgb Conc 32.2 g/dL (32-36); Mean Corpuscular Volume 93.4 fL (81-99); Monocyte# 1.46 X10^3/uL; Monocyte% 11.4 % (0-10); NRBC Flagged by Analyzer 0 % (0-5); Neutrophil # 8.58 X10^3/uL (2.7-7.7); Neutrophil % 67.2 % (47-70); Platelet Count 303 K/mm3 (150-450); RBC Distribution Width CV 12.8 % (11.6-14.6); RBC Distribution Width SD 43.9 fl (35.1-43.9); Red Blood Count 3.33 M/mm3 (4.2-5.4); White Blood Count 12.8 K/mm3 (4.4-11.0)
--- NOTE | 2023-09-05 07:32 | PCM.PN.SRG ---
Subjective Subjective Patients is evaluated resting comfortably in bed. She notes intermittent right upper quadrant pain under her ribs. She denies nausea, vomiting. She is tolerating her diet. She is having bowel function. SANKET drain remains intact. Objective Data Objective Data Vital Signs: Vital Signs Temp Pulse Resp BP Pulse Ox O2 Del Method O2 Flow Rate 97.8 F 77 15 140/68 H 91 Room Air 2 09/05/23 02:00 09/05/23 06:00 09/05/23 03:00 09/05/23 02:00 09/05/23 03:00 09/05/23 03:00 09/04/23 07:48 Oxygen Flow Rate (L/min) 2 Oxygen Delivery Method Room Air Weight: 124 lb 8.979 oz Body Mass Index (BMI) 21.4 Intake & Output: Intake and Output for Last 24 Hours 09/03/23 09/04/23 09/05/23 23:59 23:59 23:59 Intake Total 2773.3333 / 2773.3333 2150 / 2250 150 / 150 Output Total 690 / 690 280 / 285 8 / 8 Balance 2083.3333 / 2083.3333 1870 / 1965 142 / 142 Lab / Micro Data 09/05/23 06:27 09/04/23 06:25 Labs: Laboratory Results - last 24 hr 09/01/23 05:26: Diff Path Review Reviewed 09/02/23 06:03: Diff Path Review Reviewed 09/03/23 05:35: Diff Path Review Reviewed 09/04/23 06:25: Sodium 144, Potassium 4.5, Chloride 116 H, Carbon Dioxide 23.0, Anion Gap 5, BUN 31 H, Creatinine 0.66, Estim Creat Clear Calc 47.63, Est GFR (MDRD) Af Amer 110, Est GFR (MDRD) Non-Af 91, BUN/Creatinine Ratio 46.9 H, Glucose 91, Calcium 7.9 L, Phosphorus 2.1 L, Magnesium 2.0 09/05/23 06:27: WBC 12.8 H, RBC 3.33 L, Hgb 10.0 L, Hct 31.1 L, MCV 93.4, MCH 30.0, MCHC 32.2, RDW Std Deviation 43.9, RDW Coeff of Rick 12.8, Plt Count 303, MPV 11.0, Immature Gran % (Auto) 4.000 H, Neut % (Auto) 67.2, Lymph % (Auto) 11.1 L, [place] % (Auto) 11.4 H, Eos % (Auto) 5.8 H, Baso % (Auto) 0.5, Absolute Neuts (auto) 8.6 H, Absolute Lymphs (auto) 1.42, Nucleated RBC % 0 Micro: Microbiology 09/01/23 Unknown Fluid - Peritoneal Gram Stain - Final 09/01/23 Unknown Fluid - Peritoneal Body Fluid Culture - Preliminary Gram Positive Cocci 09/01/23 Unknown Fluid - Peritoneal Anaerobic Culture - Preliminary Physical Exam GI GI Narrative: Abdomen- soft, minimal tenderness in the right upper and lower quadrant. Positive bowel sounds. Incisions c/d/i. No erythema or infection noted. SANKET drain intact with serosanguineous fluid. Assessment & Plan Assessment/Plan (1) Acute perforated appendicitis: PLAN: I am seeing this patient in conjunction with Dr. Ulloa. He has independently evaluated this patient. CBC reviewed with WBC slightly increasing. Plan to continue IV antibiotics with SANKET drain remaining. BMP pending We will continue to closely monitor this patient If WBC increases tomorrow, we will plan to proceed with a CT scan of the ab/pel Charges/Coding Visit Charges Inpatient E&M: 63995 Subs Hosp L1 (post-op)
[2023-09-05 07:48] LABS: Anion Gap 3 (5-15); BUN 27 mg/dL (7-18); BUN/Creat Ratio 41.2 RATIO (10-20); Calcium,Total 7.9 mg/dL (8.5-10.1); Chloride 115 mmol/L (98-107); Creatinine, Serum 0.66 mg/dL (0.55-1.02); EST Glomerular Filtration Rate 92 mL/min (>60); Est Glom Filt Rate - Afr Amer 111 mL/min (>60); Estimated Creatinine Clearance 47.63 ml/min; Glucose 99 mg/dL (74-106); Magnesium 1.9 mg/dL (1.6-2.6); Phosphorus 3.1 mg/dL (2.5-4.9); Potassium 4.1 mmol/L (3.5-5.1); Sodium Level 142 mmol/L (136-145)
[2023-09-05] MEDS: Aspirin 81 MG TAB.CHEW PO (08:46)
[2023-09-05] MEDS: Anastrozole 1 MG TABLET PO (08:46)
--- NOTE | 2023-09-05 16:36 | NURSING ---
All documentation by professional nursing assistant, Selvin London, reviewed by certified nursing attendant, Rosa Elena STRATTONN, RN.
[2023-09-05] MEDS: Menthol/Lanolin/Calamine/Znox 113 GM Tube 1 APPLIC TOPICAL (23:15)
[2023-09-06 02:46] VITALS: BP 153/85; PULSE 87; RESP 16; TEMP 36.8; O2SAT 96
[2023-09-06] MEDS: 0.9% Saline Lock 10 ML Syringe IV ×2 (06:03→14:47)
[2023-09-06] MEDS: Piperacil/Tazobactam 3.375 GM in 0.9% Normal Saline (50mL MB+) 50 ML IV ×3 (06:03→22:29)
[2023-09-06 06:36] LABS: Hematocrit 38.9 % (37-47); Hemoglobin 12.6 g/dL (12.0-15.0); Mean Corp Hgb Conc 32.4 g/dL (32-36); Mean Corpuscular Hgb 29.9 pg (27.0-32.0); Mean Corpuscular Volume 92.4 fL (81-99); Mean Platelet Vol. 10.7 fl (6.2-12.0); POSITIVE COUNT YES; POSITIVE DIFFERENTIAL YES; POSITIVE MORPHOLOGY YES; Platelet Count 434 K/mm3 (150-450); RBC Distribution Width CV 12.8 % (11.6-14.6); RBC Distribution Width SD 43.2 fl (35.1-43.9); Red Blood Count 4.21 M/mm3 (4.2-5.4); White Blood Count 27.1 K/mm3 (4.4-11.0)
[2023-09-06 07:15] LABS: Differential Indicated MANUAL DIFF
[2023-09-06 07:18] LABS: Basophil 1 % (0-1); Eosinophil 4 % (0-5); Lymphocyte 4 % (19-41); Metamyelocyte 3 % (0-1); Monocyte 11 % (0-10); Myelocyte 1 % (0-0); Neutrophil-Band 2 % (0-5); Neutrophil-Segmented 74 % (47-70); Nucleated Red Bld Cells,Manual 2 % (0-5); Total Cells Counted 100 (MANUAL DIFF)
[2023-09-06 07:20] LABS: Anisocytosis RARE; Platelet Estimate SLT INC (ADEQ); Polychromasia RARE
[2023-09-06 07:22] LABS: Absolute Neutrophil Count 20.6 X10^3/uL (2.0-7.7)
[2023-09-06 07:30] LABS: Anion Gap 3 (5-15); BUN 18 mg/dL (7-18); Calcium,Total 6.8 mg/dL (8.5-10.1); Chloride 110 mmol/L (98-107); Creatinine, Serum 0.64 mg/dL (0.55-1.02); EST Glomerular Filtration Rate 94 mL/min (>60); Est Glom Filt Rate - Afr Amer 114 mL/min (>60); Estimated Creatinine Clearance 47.63 ml/min; Glucose 105 mg/dL (74-106); Magnesium 1.7 mg/dL (1.6-2.6); Phosphorus 2.8 mg/dL (2.5-4.9); Potassium 4.2 mmol/L (3.5-5.1); Sodium Level 138 mmol/L (136-145)
[2023-09-06 07:54] VITALS: O2SAT 95
[2023-09-06 08:09] LABS: Absolute Lymphocyte Count 1.98 X10^3/uL (0.83-4.51); Absolute Neutrophil Count 18.5 X10^3/uL (2.0-7.7); Basophil# 0.31 X10^3/uL; Basophil% 1.2 % (0-1); Eosinophil# 1.08 X10^3/uL; Eosinophils% 4.2 % (0-5); Hematocrit 40.7 % (37-47); Hemoglobin 13.4 g/dL (12.0-15.0); Lymphocyte # 1.98 X10^3/ul (0.83-4.51); Lymphocyte % 7.6 % (19-41); Mean Corp Hgb Conc 32.9 g/dL (32-36); Mean Corpuscular Hgb 30.7 pg (27.0-32.0); Mean Corpuscular Volume 93.3 fL (81-99); Mean Platelet Vol. 10.7 fl (6.2-12.0); Monocyte# 2.37 X10^3/uL; Monocyte% 9.1 % (0-10); NRBC Flagged by Analyzer 0 % (0-5); Neutrophil # 18.52 X10^3/uL (2.7-7.7); Neutrophil % 71.5 % (47-70); POSITIVE COUNT YES; POSITIVE DIFFERENTIAL YES; POSITIVE MORPHOLOGY YES; Platelet Count 423 K/mm3 (150-450); RBC Distribution Width CV 12.7 % (11.6-14.6); RBC Distribution Width SD 43.5 fl (35.1-43.9); Red Blood Count 4.36 M/mm3 (4.2-5.4); White Blood Count 25.9 K/mm3 (4.4-11.0)
[2023-09-06 08:14] LABS: Differential Indicated SCAN CRITERIA MET
[2023-09-06 08:42] LABS: Differential Comment SCANNED
--- NOTE | 2023-09-06 09:17 | CT_ITS ---
STUDY: CT ABDOMEN AND PELVIS WITH CONTRAST REASON FOR EXAM: Female, 83 years old. eval for abscess after lap appy and perf RADIATION DOSAGE (If Supplied By Facility): CTDIvol = ( 14.08 ) mGy, DLP = ( 586.21 ) mGycm TECHNIQUE: Transaxial images were obtained from the dome of the diaphragm to the symphysis pubis with oral contrast. ISOVUE 370-75ml, 500ml gastrografin was administered. Sagittal and coronal images were reconstructed. Individualized dose optimization techniques were used for this CT. COMPARISON: Comparison is made with prior study of September 01, 2023. FINDINGS: Small bilateral pleural effusions with bibasilar atelectasis. Coronary artery calcification. Normal liver. Normal gallbladder and extrahepatic biliary system. Normal spleen. Normal pancreas. Normal bilateral adrenal glands. Normal right kidney. Normal left kidney. Normal visualized stomach. Normal small intestine. There are scattered colonic diverticula consistent with diverticulosis. The patient is status post appendectomy. Intravenous catheter seen within the right lower quadrant. Postoperative changes are seen in the right lower quadrant. Findings suggestive of a 3.5 cm x 4.2 cm phlegmon at the operative site in the right lower quadrant. No definite abscess collection is seen. Small amount of free fluid is seen in the right side of the pelvis. There is scattered atherosclerotic calcification of the abdominal aorta, without a demonstrated aneurysm. Normal inferior vena cava. Normal retroperitoneum. Normal urinary bladder. There is absence of the uterus consistent with a prior hysterectomy. Normal abdominal wall. There are diffuse degenerative changes of the visualized lumbar spine. Minimal anterior listhesis of L4 on L5 CT/Abdomen/Pelvis WITH Contrast IMPRESSION: Status post appendectomy with a postoperative phlegmon formation at the operative site. No definite abscess is seen. A drain is catheter is seen within the operative site in the right lower quadrant. Small bilateral pleural effusions with bibasilar atelectasis. Electronically Signed: Blanco Davey MD at 12:10 EDT ,
[2023-09-06 09:29] VITALS: BP 136/83; PULSE 82; RESP 18; TEMP 36.7; O2SAT 96
--- NOTE | 2023-09-06 09:47 | NURSING ---
oral CT contrast started
[2023-09-06 14:21] VITALS: BP 148/90; PULSE 78; RESP 18; TEMP 36.4; O2SAT 95
[2023-09-06] MEDS: 0.9% Normal Saline (1000mL) 1,000 ML 75 ML IV (14:45)
[2023-09-06] MEDS: Menthol/Lanolin/Calamine/Znox 113 GM Tube 1 APPLIC TOPICAL ×2 (14:45→22:29)
[2023-09-06] MEDS: Aspirin 81 MG TAB.CHEW PO (14:46)
[2023-09-06] MEDS: Anastrozole 1 MG TABLET PO (14:46)
--- NOTE | 2023-09-06 18:07 | PN.SURG_ITS ---
Subjective Subjective Patient seen and examined at multiple times throughout today. She denies any increase in her abdominal pain but this morning experienced frequent loose bowel movements and this negatively affected her rest. She confirms that this was nonbloody diarrhea. She has remained n.p.o. since midnight on the account of po ssible procedure if her white blood cell count was to rise further. Objective Data Objective Data Vital Signs: Vital Signs Temp Pulse Resp BP Pulse Ox O2 Del Method O2 Flow Rate 97.6 F L 78 18 148/90 H 95 Room Air 2 09/06/23 14:21 09/06/23 14:21 09/06/23 14:21 09/06/23 14:21 09/06/23 14:21 09/06/23 14:21 09/04/23 07:48 Oxygen Flow Rate (L/min) 2 Oxygen Delivery Method Room Air Weight: 124 lb 8.979 oz Body Mass Index (BMI) 21.4 Intake & Output: Intake and Output for Last 24 Hours 09/04/23 09/05/23 09/06/23 23:59 23:59 23:59 Intake Total 2150 / 2250 1129.75 / 1129.75 100 / 100 Output Total 280 / 285 38 / 38 20 / 20 Balance 1870 / 1965 1091.75 / 1091.75 80 / 80 Lab / Micro Data 09/06/23 07:54 09/06/23 06:00 Labs: Laboratory Results - last 24 hr 09/06/23 06:00: Sodium 138, Potassium 4.2, Chloride 110 H, Carbon Dioxide 25.0, Anion Gap 3 L, BUN 18, Creatinine 0.64, Estim Creat Clear Calc 47.63, Est GFR (MDRD) Af Amer 114, Est GFR (MDRD) Non-Af 94, BUN/Creatinine Ratio 28.0 H, Glucose 105, Calcium 6.8 L, Phosphorus 2.8, Magnesium 1.7 09/06/23 06:22: WBC 27.1 H, RBC 4.21, Hgb 12.6, Hct 38.9, MCV 92.4, MCH 29.9, MCHC 32.4, RDW Std Deviation 43.2, RDW Coeff of Rick 12.8, Plt Count 434, MPV 10.7, Neut % (Auto) Not Reportable, Absolute Neuts (auto) 20.6 H, Absolute Lymphs (auto) 1.10, Total Counted 100, Neutrophils % (Manual) 74 H, Band Neutrophils % 2, Lymphocytes % (Manual) 4 L, Monocytes % (Manual) 11 H, Eosinophils % (Manual) 4, Basophils % (Manual) 1, Metamyelocytes % 3 H, Myelocytes % 1 H, Nucleated RBCs/100 WBC 2, Diff Path Review September foll, Platelet Estimate SLT INC, Polychromasia RARE, Anisocytosis RARE 09/06/23 07:54: WBC 25.9 H, RBC 4.36, Hgb 13.4, Hct 40.7, MCV 93.3, MCH 30.7, MCHC 32.9, RDW Std Deviation 43.5, RDW Coeff of Rick 12.7, Plt Count 423, MPV 10.7, Immature Gran % (Auto) 6.400 H, Neut % (Auto) 71.5 H, Lymph % (Auto) 7.6 L , [place] % (Auto) 9.1, Eos % (Auto) 4.2, Baso % (Auto) 1.2 H, Absolute Neuts (auto) 18.5 H, Absolute Lymphs (auto) 1.98, Nucleated RBC % 0, Differential Comment SCANNED, Diff Path Review September foll Micro: Microbiology 09/06/23 10:19 Stool Enteric Bacteriology - Final 09/06/23 10:42 Stool Clostridioides difficile (PCR) - Final 09/01/23 Unknown Fluid - Peritoneal Gram Stain - Final 09/01/23 Unknown Fluid - Peritoneal Body Fluid Culture - Final Strep anginosus Radiography Diagnostic Testing: Radiology Impression Abdomen/Pelvis CT 09/06/23 09:17 IMPRESSION: Status post appendectomy with a postoperative phlegmon formation at the operative site. No definite abscess is seen. A drain is catheter is seen within the operative site in the right lower quadrant. Small bilateral pleural effusions with bibasilar atelectasis. Electronically Signed: Blanco Davey MD at 12:10 EDT , Physical Exam Const oriented x3 and no apparent distress Resp normal respiratory effort GI GI Narrative: Nondistended, soft, supraumbilical and left lower quadrant port sites with dressings are clean dry and intact while the suprapubic drain site dressing is mildly soiled with serous fluid. There is scant serous fluid in the patient's SANKET drain. Patient denies tenderness to palpation. Assessment & Plan Assessment/Plan (1) Acute perforated appendicitis: PLAN: Patient is postoperative day 5 from laparoscopic appendectomy with drain placement for complicated appendicitis. While patient remains clinically stable her white blood cell count shanae exponentially today to greater than 25,000. This was confirmed with recheck labs. Immediately I sent off stool studies?including C. difficile and then ordered CT imaging of the abdomen pelvis with p.o. and IV contrast. This was completed and the study quality was excellent. Per radiology this study did not show any evidence of an abscess but did demonstrate a phlegmon in the region of patient's surgical site in the right lower quadrant. With Mrs. Navarro otherwise appearing well it was difficult to focus our workup from here and I proceeded to place orders for other possible infectious etiologies including sputum and urine. In my independent review of patient's imaging I am concerned for a possible loculated fluid collection in the patient's right hemipelvis and measures approximately 3 cm in greatest dimension. It does appear accessible via transgluteal approach and I will plan to make patient n.p.o. past midnight and have radiology review the CT imaging for both the impression and the feasibility of drainage. Patient should be sta rted on high rate of IV fluids upon assuming n.p.o. status today. In the interim we will continue empiric IV Zosyn and patient's cultures are reviewed from IntraOp showing strep anginosus. Charges/Coding Visit Charges Inpatient E&M: 40810 Subs Hosp L2
[2023-09-06 20:27] VITALS: BP 132/60; PULSE 98; RESP 18; TEMP 36.6; O2SAT 98
[2023-09-07] VITALS (18 sets, daily range): BP systolic 121–163; BP diastolic 59–88; PULSE 70–92; RESP 15–18; TEMP 36.4–37.4; O2SAT 84–97
--- NOTE | 2023-09-07 | COL_PTH ---
PATIENT: CRISTINA DOWELL LOC: MS3 U#:[id number] AGE/SX: 83/F ROOM: NV308 RE09/01/[address]: Dr. Anibal Menjivar MD : 1940 BED: 1 DIS: 09/13/2023 SPEC #: [id number] RECD: 09/10/23 07:54 STATUS: YESSICA REAmy #: [id number] MAKEDA: 09/07/23 00:[address]: Siddhartha Ulloa DEPT: SURGICAL PATHOLOGY RECD BY: Amaury De Oliveira ENTERED: 09/10/23 10:14 SP TYPE: COLON OTHR DR: MD Dr. Siddhartha Soto MD Dr. Prakash Chand, MD Dr. William Lago, MD Tissues: Colon, NOS Procedures: Surgery Specimen Level V Comments: @ Ordering doctor for SUV edited from to @ by WILMAN at 09/10/23 1517 @ Submitting doctor edited from to @ by WILMAN at 09/10/23 1517 HEADER OPERATION: Diagnostic laparoscopy with TAP block, Ileocecectomy PRE-OP DIAGNOSIS: Acute perforated appendicitis TISSUE SUBMITTED: Terminal ileum and cecum MICROSCOPIC DIAGNOSIS Terminal ileum and cecum, segmental resection: Ruptured appendix with periappendiceal abscess, fat necrosis and acute serositis. Margins of excision with no significant pathologic change. Three out of three lymph nodes with no pathologic change. AM/mr 09/12/2023 COMMENT Case has been reviewed in consultation with Dr. Regan who concurs with the above diagnosis. IDC:SJ Case is discussed with Dr. Ulloa 09/12/[address] Lambert MICROSCOPIC DESCRIPTION Slides are reviewed. GROSS DESCRIPTION Received in fixative is one container labeled with the patient's name and designated Terminal ileum and cecum. The specimen consists of ileocecectomy specimen consisting of small intestine measuring 10.0cm in length and cecum measuring 8.0cm in length and attached appendix (retrocecal in position) measures 4.0cm in length and 0.5cm in diameter. Serosal surface of the small and large intestines covered focally with cortes purulent exudates. Serosal surface of appendix is congested and hemorrhagic and covered with cortes purulent exudate. Sections will be submitted after fixation. AJAY/ 09/10/23 Also present in the container is a donut shaped piece of tissue measuring 3.0 x 0.7 x 0.8cm. Multiple malcolm are noted in this donut. No mucosal lesion is identified. Section of the pericolonic adipose tissue shows a chalky yellow cut surface consistent with fat necrosis. Palliative Senior Np sections are submitted in ten cassettes as follows: 1- donut shaped tissue, 2-proximal and distal resection margins, 3&4-appendix, totally submitted(3 containing most proximal portion and tip of appendix, 4 rest of the appendix), 5-ileloceal valve, 6&7- large intestine, 8&9- small intestine (section of small and large intestine are also include the serosal surface covered in purulent exudate), 10- mesenteric tissue and periappendiceal adipose tissue with yellowish area consistent with fat necrosis.) AJAY/ 09/11/23 TC:2 CPT: 21908
[2023-09-07] MEDS: 0.9% Normal Saline (1000mL) 1,000 ML 100 ML IV ×2 (02:52→14:02)
[2023-09-07] MEDS: Piperacil/Tazobactam 3.375 GM in 0.9% Normal Saline (50mL MB+) 50 ML IV ×3 (05:01→21:56)
[2023-09-07 07:50] LABS: Hematocrit 33.7 % (37-47); Hemoglobin 10.7 g/dL (12.0-15.0); Mean Corp Hgb Conc 31.8 g/dL (32-36); Mean Corpuscular Hgb 29.6 pg (27.0-32.0); Mean Corpuscular Volume 93.1 fL (81-99); Mean Platelet Vol. 10.7 fl (6.2-12.0); POSITIVE COUNT YES; POSITIVE DIFFERENTIAL YES; POSITIVE MORPHOLOGY YES; Platelet Count 385 K/mm3 (150-450); RBC Distribution Width CV 12.8 % (11.6-14.6); RBC Distribution Width SD 43.4 fl (35.1-43.9); Red Blood Count 3.62 M/mm3 (4.2-5.4); White Blood Count 21.9 K/mm3 (4.4-11.0)
--- NOTE | 2023-09-07 07:55 | PN.SURG_ITS ---
Subjective Subjective Patient seen and examined during AM rounds. She is found resting in bed. She states that she did have some diarrhea overnight but denies any abdominal pain. She has remained n.p.o. past midnight for possible procedure today. Objective Data Objective Data Vital Signs: Vital Signs Temp Pulse Resp BP Pulse Ox O2 Del Method O2 Flow Rate 99.0 F 87 18 147/74 H 95 Room Air 2 09/07/23 03:00 09/07/23 03:00 09/07/23 03:00 09/07/23 03:00 09/07/23 07:06 09/07/23 07:06 09/04/23 07:48 Oxygen Flow Rate (L/min) 2 Oxygen Delivery Method Room Air Weight: 124 lb 8.979 oz Body Mass Index (BMI) 21.4 Intake & Output: Intake and Output for Last 24 Hours 09/05/23 09/06/23 09/07/23 23:59 23:59 23:59 Intake Total 1129.75 / 1129.75 150 / 150 1026.67 / 1026.67 Output Total 38 / 38 50 / 50 1010 / 1010 Balance 1091.75 / 1091.75 100 / 100 16.67 / 16.67 Lab / Micro Data 09/07/23 06:25 09/07/23 06:25 Labs: Laboratory Results - last 24 hr 09/06/23 07:54: WBC 25.9 H, RBC 4.36, Hgb 13.4, Hct 40.7, MCV 93.3, MCH 30.7, MCHC 32.9, RDW Std Deviation 43.5, RDW Coeff of Rick 12.7, Plt Count 423, MPV 10.7, Immature Gran % (Auto) 6.400 H, Neut % (Auto) 71.5 H, Lymph % (Auto) 7.6 L , Mcdowell % (Auto) 9.1, Eos % (Auto) 4.2, Baso % (Auto) 1.2 H, Absolute Neuts (auto) 18.5 H, Absolute Lymphs (auto) 1.98, Nucleated RBC % 0, Differential Comment SCANNED, Diff Path Review May Micro: Microbiology 09/06/23 10:19 Stool Enteric Bacteriology - Final 09/06/23 10:42 Stool Clostridioides difficile (PCR) - Final 09/01/23 Unknown Fluid - Peritoneal Gram Stain - Final 09/01/23 Unknown Fluid - Peritoneal Body Fluid Culture - Final Strep anginosus Radiography Diagnostic Testing: Radiology Impression Abdomen/Pelvis CT 09/06/23 09:17 IMPRESSION: Status post appendectomy with a postoperative phlegmon formation at the operative site. No definite abscess is seen. A drain is catheter is seen within the operative site in the right lower quadrant. Small bilateral pleural effusions with bibasilar atelectasis. Electronically Signed: Blanco Davey MD at 12:10 EDT , Physical Exam Const oriented x3 and no apparent distress Resp normal respiratory effort GI GI Narrative: Nondistended, soft, nontender to palpation. Operative sites remain covered with Steri-Strips. Patient's suprapubic drain catheter contains just serous fluid. Assessment & Plan Assessment/Plan (1) Acute perforated appendicitis: PLAN: Patient is postoperative day 56 from laparoscopic appendectomy with drain placement for complicated appendicitis. While patient remains clinically stable her white blood cell count remains elevated and there does not seem to be a clear-cut cause for this apart from a late review of her pathology yesterday that did not identify appendix within the pathologic specimen submitted from her last OR. Notably, both C. difficile testing and enteric pathogen testing were negative. I also discussed patient's case with radiology and they felt that patient's small abscess cavity in the pelvis was unlikely to explain her white blood cell count and would be potentially prohibitively difficult to access via percutaneous drain based on risk to the rectum. I did question whether they c learly identified a remnant of the appendix and they stated that they did not. Yet, given patient's leukocytosis and the pathology I remain concerned for an ongoing smoldering, devascularized appendix that would potentially complicate or prolong patient's recovery. Thus, I did approach her about reoperation with open ileocecectomy. The operation and its risks/benefits were discussed in the hearing of both her and her . Patient was initially reluctant as she shared how well she currently feels, but ultimately we jointly agreed to proceed to the operating room for this procedure in the interest of patient's longer- term health. Siddhartha Ulloa MD General Surgery Endocrine Surgery Pager: [facility] [address] [place] [address], [facility], [address] [place] [address] Office: [phone] Charges/Coding Visit Charges Inpatient E&M: 99607 Subs Hosp L2
[2023-09-07 08:22] LABS: Pathologist Review Reviewed
[2023-09-07 08:25] LABS: Anion Gap 3 (5-15); BUN 13 mg/dL (7-18); BUN/Creat Ratio 18.5 RATIO (10-20); Calcium,Total 7.7 mg/dL (8.5-10.1); Chloride 111 mmol/L (98-107); EST Glomerular Filtration Rate 85 mL/min (>60); Est Glom Filt Rate - Afr Amer 103 mL/min (>60); Estimated Creatinine Clearance 47.63 ml/min; Glucose 83 mg/dL (74-106); Potassium 4.3 mmol/L (3.5-5.1); Sodium Level 139 mmol/L (136-145)
[2023-09-07 08:35] LABS: Differential Indicated MANUAL DIFF
[2023-09-07 08:51] LABS: Pathologist Review Reviewed
[2023-09-07 09:22] LABS: Eosinophil 4 % (0-5); Lymphocyte 2 % (19-41); Monocyte 7 % (0-10); Myelocyte 1 % (0-0); Neutrophil-Band 2 % (0-5); Neutrophil-Segmented 84 % (47-70); Platelet Estimate ADEQUATE (ADEQ); Red Cell Morphology NORM C+C NORMAL (NORM C&C); Total Cells Counted 100 (MANUAL DIFF)
[2023-09-07 09:23] LABS: Absolute Lymphocyte Count 0.44 X10^3/uL (0.83-4.51); Absolute Neutrophil Count 18.8 X10^3/uL (2.0-7.7)
--- NOTE | 2023-09-07 10:46 | NURSING ---
pt has been ambulatory in [place] x2 this shift and up in chair pt using I.S. while up in chair hourly
--- NOTE | 2023-09-07 12:31 | NURSING ---
at bedside and pt and he are awaiting for dr Ulloa to come and discuss plan of care
[2023-09-07] MEDS: Ipratropium/Albuterol Sulfate 3 ML AMPUL.NEB INHALATION (13:07)
--- NOTE | 2023-09-07 14:43 | NURSING ---
Dr Ulloa at bedside and he explained choices for pt with the CT results and continued WBC- Pt and are agreeable to proceeding with abdominal laparoscopic/possible open with possible drain placement-probable removal of part of bowel pt remains up ad diann in room w/ SBA there is no order for surgical consent at this time
--- NOTE | 2023-09-07 15:11 | NURSING ---
to OR area for procedure w/surgery staff
[2023-09-07] MEDS: 0.9% Normal Saline (1000mL) 1,000 ML 15 ML IV (15:58)
[2023-09-07] MEDS: BUPIVACAINE LIPOSOME/PF 20 ML VIAL OPERA.SITE (16:50)
[2023-09-07] MEDS: Bupivacaine 0.25% 30 ML Vial (16:50)
[2023-09-07] MEDS: 0.9% Normal Saline (Pres. free 10 ML Vial (16:50)
--- NOTE | 2023-09-07 18:36 | OP.PCM_ITS ---
Report of Operation Date of Procedure: 09/07/23 Pre-Operative Diagnosis: History of perforated appendicitis status post laparos copic appendectomy with persistent phlegmon and leukocytosis Post-Operative Diagnosis: Same Surgery/Procedure Performed:: 1. Diagnostic laparoscopy with tap block placement 2. Open ileocecectomy with primary stapled, [id number] functional end-to-end ileocolic anastomosis Surgeon: Siddhartha Ulloa physician relations manager: Mathew Macias physician relations manager: Jennie Jordan Type of Anesthesia: General/Supplemental Anesthesiologist: Noe Saavedra Specimen's removed: Terminal ileum and cecum Estimated Blood Loss (mL): 50 Description of Procedure: After appropriate identification in the preoperative holding area the patient was brought to the operating room where she was positioned supine in the operating room table. There she underwent induction of general anesthesia. She was administered preoperative antibiotics. A Triana catheter was then placed for accurate ins and outs monitoring. Anesthesia placed a orogastric tube for gastric decompression. A formal timeout was conducted to confirm patient and procedure. Procedure was begun with a Reilly entry in the supraumbilical position and placement of a 12 mm balloon trocar after reincising patient's supraumbilical closure from 6 days ago. Pneumoperitoneum was established at 15 mmHg and an inspection of the peritoneum was made. There was no evidence of inadvertent injury to the viscera below from our entry. With this initial investigation I did note significant adhesions of the cecum and right colon to the lateral abdominal wall as well as about the patient's laterally placed drain. Planning for an open colon surgery, I sought to improve patient's postoperative comfort and I performed a bilateral TAP block using a solution of Exparel, bupivacaine, and saline to instill 60 mL in evenly measured aliquots under laparoscopic direction. In order to better examine the extent of these adhesions I reincised patient's left lower quadrant port site and placed a 5 mm port in this location under laparoscopic visualization to bluntly free up some of these adhesions. However, as I approached the colon the adhesions were denser and the colon appeared friable. Thus, I resolved to proceed for open ileocecectomy. I extended my incision, supraumbilically, about the umbilicus and inferiorly for approximately 6 cm. This was carried down through the fascia with the use of electrocautery to maintain hemostasis. Then a medium size wound protector was placed and I bluntly used digital dissection to free up the cecum from the retroperitoneum. I found the terminal ileum to be rather densely adherent to the pelvis in one location but these adhesions were sharply lysed and a used further blunt dissection to disrupt a number of loculated fluid collections of the deeper pelvis that had been seen on patient's prior CT imaging. I then checked overall mobility of the right colon and terminal ileum and found it easily reached our incision. On making this observation, I set about performing our resection and reanastomosis. A window was developed in the small bowel mesentery adjacent to the area that had been previously adhered in the terminal ileum and the bowel was transected with a firing of the 75 mm SYLVESTER stapler. I then carefully sealed the small bowel and colonic mesentery proceeding proximally to distally using a impact LigaSure adjacent the bowel wall. Blunt dissection was used to make several more windows in the mesentery to try to thin the edematous tissue here and make the work of the impact LigaSure more effective. A 75 mm SYLVESTER stapler was then used to transect the junction of the cecum and the ascending colon. The specimen was passed off the field for pathologic processing. I then aligned the remaining ileum and ascending colon antimesenteric border-to- tenia coli. A stay suture was placed along the staple line of both portions of bowel and the corners of the staple lines were removed. A [id number], functional end stapled ileocolonic anastomosis was then produced with a third firing of our SYLVESTER stapler. The common channel was reoriented perpendicularly to our original staple lines and was closed with a TX 60 mm stapler. The staple line was hemostatic. The mesenteric defect between the colon and small bowel was closed with a running 3-0 silk. A crotch stitch was placed with a 3-0 silk stitch. Satisfied with our anastomosis the bowel was returned to the peritoneum. I then irrigated the abdomen with warm sterile saline using a total volume of 3 L and suctioned the effluent free. There were no signs of significant bleeding with this intervention. I thus placed a 15 Dominican round Igor drain in the right paracolic gutter to replace the drain just removed and then removed the wound protector and began closure of the abdomen. The laparotomy site was closed with double-stranded looped PDS. The subcutaneous layer was irrigated above the fascia and the skin was closed with a skin malcolm. The remaining 5 mm port site was also closed with skin malcolm. Dressings were applied and the patient's Triana catheter was removed as she was awoken from general anesthetic without complication. Anesthesiology had noted excellent urine output during the case with a total Triana output of 500 mL. She was taken to PACU for ongoing recovery. Complications None Admit VTE Documentation VTE Mechan Device Prophylaxis: SCD's Procedures Digestive 40xxx-49xxx: 15240 Removal of colon
[2023-09-07] MEDS: Menthol/Lanolin/Calamine/Znox 113 GM Tube 1 APPLIC TOPICAL (21:58)
[2023-09-07] MEDS: HYDROmorphone 0.5 MG/0.5 ML SYRINGE IV (23:17)
[2023-09-08] VITALS (11 sets, daily range): BP systolic 118–145; BP diastolic 54–65; PULSE 81–101; RESP 15–18; TEMP 36.7–37.3; O2SAT 93–97
[2023-09-08] MEDS: 0.9% Normal Saline (1000mL) 1,000 ML 100 ML IV (00:08)
[2023-09-08] MEDS: Ketorolac 15 MG/ML Vial IV ×4 (00:09→17:17)
--- NOTE | 2023-09-08 02:54 | NURSING ---
purewick in place. minimal output noted. pt reports she feels like she is urinating and denies c/o bladder pressure. bladder scanned pt for 580 cc. assisted pt up to the BSC. pt voided approx 100 cc yellow urine. straight cath'd patient for 600 cc clear yellow urine.
[2023-09-08 06:13] LABS: Hematocrit 33.7 % (37-47); Hemoglobin 10.7 g/dL (12.0-15.0); Mean Corp Hgb Conc 31.8 g/dL (32-36); Mean Corpuscular Hgb 29.8 pg (27.0-32.0); Mean Corpuscular Volume 93.9 fL (81-99); Mean Platelet Vol. 10.3 fl (6.2-12.0); POSITIVE COUNT YES; POSITIVE DIFFERENTIAL YES; POSITIVE MORPHOLOGY YES; Platelet Count 420 K/mm3 (150-450); RBC Distribution Width CV 12.9 % (11.6-14.6); RBC Distribution Width SD 44.7 fl (35.1-43.9); Red Blood Count 3.59 M/mm3 (4.2-5.4)
[2023-09-08 06:15] LABS: Differential Indicated MANUAL DIFF
[2023-09-08] MEDS: Piperacil/Tazobactam 3.375 GM in 0.9% Normal Saline (50mL MB+) 50 ML IV ×3 (06:29→20:51)
[2023-09-08 06:32] LABS: Anion Gap 8 (5-15); BUN 14 mg/dL (7-18); BUN/Creat Ratio 19.2 RATIO (10-20); Calcium,Total 7.2 mg/dL (8.5-10.1); Chloride 111 mmol/L (98-107); Creatinine, Serum 0.73 mg/dL (0.55-1.02); EST Glomerular Filtration Rate 81 mL/min (>60); Est Glom Filt Rate - Afr Amer 99 mL/min (>60); Estimated Creatinine Clearance 47.63 ml/min; Glucose 98 mg/dL (74-106); Magnesium 1.7 mg/dL (1.6-2.6); Phosphorus 3.4 mg/dL (2.5-4.9); Potassium 4.3 mmol/L (3.5-5.1); Sodium Level 140 mmol/L (136-145)
[2023-09-08 07:00] LABS: Lymphocyte 3 % (19-41); Monocyte 2 % (0-10); Myelocyte 3 % (0-0); Neutrophil-Segmented 91 % (47-70); Promyelocyte 1 % (0-0); Total Cells Counted 100 (MANUAL DIFF)
[2023-09-08] MEDS: Ipratropium/Albuterol Sulfate 3 ML AMPUL.NEB INHALATION ×3 (07:02→19:35)
[2023-09-08 07:06] LABS: Differential Comment SCANNED
[2023-09-08 07:07] LABS: Absolute Neutrophil Count 31.9 X10^3/uL (2.0-7.7)
[2023-09-08 07:09] LABS: Absolute Lymphocyte Count 1.05 X10^3/uL (0.83-4.51)
--- NOTE | 2023-09-08 09:52 | PN.HOSP_ITS ---
Reason for Visit Reason for Visit: Diagnoses Elevated white blood cell count, unspecified (09/01/23) Acute appendicitis with perforation, localized peritonitis, and gangrene, without abscess (09/01/23) Unspecified acute appendicitis (09/01/23) Objective Data Objective Data Vital Signs: Vital Signs Temp Pulse Resp BP Pulse Ox O2 Del Method O2 Flow Rate 98.9 F 90 18 129/61 H 93 Room Air 2 09/08/23 08:00 09/08/23 08:00 09/08/23 08:00 09/08/23 08:00 09/08/23 08:00 09/08/23 08:00 09/08/23 07:02 Oxygen Flow Rate (L/min) 2 Oxygen Delivery Method Room Air Weight: 124 lb 8.979 oz Body Mass Index (BMI) 21.4 Intake & Output: Intake and Output for Last 24 Hours 09/06/23 09/07/23 09/08/23 23:59 23:59 23:59 Intake Total 150 / 150 2841.67 / 2841.67 50 / 50 Output Total 50 / 50 1615 / 1615 970 / 970 Balance 100 / 100 1226.67 / 1226.67 -920 / -920 Lab / Micro Data 09/08/23 05:40 09/08/23 05:40 Labs: Laboratory Results - last 24 hr 09/06/23 06:22: Diff Path Review Reviewed 09/08/23 05:40: WBC 35.0 H*, RBC 3.59 L, Hgb 10.7 L, Hct 33.7 L, MCV 93.9, MCH 29.8, MCHC 31.8 L, RDW Std Deviation 44.7 H, RDW Coeff of Rick 12.9, Plt Count 420, MPV 10.3, Neut % (Auto) Not Reportable, Absolute Neuts (auto) 31.9 H, Absolute Lymphs (auto) 1.05, Total Counted 100, Neutrophils % (Manual) 91 H, Lymphocytes % (Manual) 3 L, Monocytes % (Manual) 2, Myelocytes % 3 H, Pr omyelocytes % 1 H, Differential Comment SCANNED, Diff Path Review September, Sodium 140, Potassium 4.3, Chloride 111 H, Carbon Dioxide 21.0, Anion Gap 8, BUN 14, Creatinine 0.73, Estim Creat Clear Calc 47.63, Est GFR (MDRD) Af Amer 99, Est GFR (MDRD) Non-Af 81, BUN/Creatinine Ratio 19.2, Glucose 98, Calcium 7.2 L, Phosphorus 3.4, Magnesium 1.7 Micro: Microbiology 09/01/23 Unknown Fluid - Peritoneal Gram Stain - Final 09/01/23 Unknown Fluid - Peritoneal Body Fluid Culture - Final Strep anginosus 09/01/23 Unknown Fluid - Peritoneal Anaerobic Culture - Final Anaerobic cocci Bacteroides fragilis 09/06/23 10:19 Stool Enteric Bacteriology - Final 09/06/23 10:42 Stool Clostridioides difficile (PCR) - Final Physical Exam Narrative Seen and examined. Patient states she is not passing flatus. Did not had bowel movement after surgery on 09/07/2023. She also had urine retention which required straight catheterization. Currently ordered for Triana catheter if urine showed more than 300 mL. No chest pain or shortness of breath. Physical exam General: Alert, Oriented x3, Cooperative HEENT: Atraumatic, PERRLA, EOMI, Normocephalic Oral: No Gingival or Mucosal Lesions/ Ulcerations Neck: Supple, No JVD, Negative Carotid Bruits Chest wall/Lungs: Air entry diminished in bilateral lung bases. No crepitation/rhonchi Cardiovascular: Regular rate, Regular Rhythm, Normal S1, Normal S2, No M/G/R Abdomen: Bowel Sounds sluggish, soft, Non Tender, Non-Distended. Operative dressing present lower midline with SANKET drain.50 mill serosanguineous fluid. : No dysuria. No renal angle tenderness. No suprapubic tenderness. Extremities: No edema, Capillary Refill Less than 3 Seconds Skin: No rashes, No breakdown Musculoskeletal: No Tenderness to Palpation of Joints or Extremities Neurological: Cranial nerves II-XII grossly intact, DTR 2+/4. No acute focal neurological deficit. Psych/Mental Status: Normal Affect, Appropriate. Assessment & Plan Assessment/Plan (1) Acute appendicitis: (2) Leukocytosis: PLAN: Plan Patient is an 83 year old female who presented to [facility] ED on 09/01/2023 with acute abdominal pain. Diagnosed with acute appendicitis, admitted under general surgery. Medicine consulted for medical management. 1. Complicated acute appendicitis with appendicolith, perforated appendicitis with persistent phlegmon and leukocytosis - General surgery primary. S/p laparoscopic appendectomy w/ drain placement w/ Dr. Ulloa on 08/31. Was noted that patient had purulent fluid upon mobilization of right colon and severely inflamed appendiceal base w/ freely present appendicolith . the peritoneal cavity. Continue treatment with IV Zosyn, maintenance IV fluids, IV Dilaudid for pain management. Further management per surgery. 09/07: Patient was found perforated appendicitis status post lap appendectomy with persistent phlegmon and leukocytosis. Patient had open ileocecectomy with primary stapled [id number] functional end-to-end ileocolonic anastomosis on 09/07/2023. Earlier she had laparoscopic appendectomy with drain placement on 09/01/2023 for acute appendicitis with appendicolith. Advised active ambulation, incentive spirometry. 2. History of splenic infarct - Home baby aspirin held on 08/31, resumed on 09/01. 09/07: Home medication reconciliation done. 3. History of breast cancer - Continue home anastrozole. 4. History of multiple cardiac conditions - History of pericardial effusion requiring pericardial window and drainage (done at [facility] in 2018), aortic valve cusp abnormality, nonrheumatic mitral valve insufficiency, episode of atrial flutter, splenic infarct on aspirin, mild pulmonary hypertension. See HPI above for further details. Last cardiology visit in 2021, patient very stable at that time with good improvement in TTE findings. Twelve-lead EKG individually reviewed. EKG w/ NSR, incomplete RBBB. No ST changes. CXR does not show acute infiltrate. No cardiac specific needs while inpatient, continue outpatient follow up as needed. Charges/Coding Visit Charges Inpatient E&M: 56533 Subs Hosp L2
--- NOTE | 2023-09-08 10:04 | PN.SURG_ITS ---
Subjective Subjective Patient reports she is comfortable this morning with no pain. She denies nausea or vomiting. No flatus or bowel movements. Objective Data Objective Data Vital Signs: Vital Signs Temp Pulse Resp BP Pulse Ox O2 Del Method O2 Flow Rate 98.9 F 90 18 129/61 H 93 Room Air 2 09/08/23 08:00 09/08/23 08:00 09/08/23 08:00 09/08/23 08:00 09/08/23 08:00 09/08/23 08:00 09/08/23 07:02 Oxygen Flow Rate (L/min) 2 Oxygen Delivery Method Room Air Weight: 124 lb 8.979 oz Body Mass Index (BMI) 21.4 Intake & Output: Intake and Output for Last 24 Hours 09/06/23 09/07/23 09/08/23 23:59 23:59 23:59 Intake Total 150 / 150 2841.67 / 2841.67 50 / 50 Output Total 50 / 50 1615 / 1615 970 / 970 Balance 100 / 100 1226.67 / 1226.67 -920 / -920 Lab / Micro Data 09/08/23 05:40 09/08/23 05:40 Labs: Laboratory Results - last 24 hr 09/06/23 06:22: Diff Path Review Reviewed 09/08/23 05:40: WBC 35.0 H*, RBC 3.59 L, Hgb 10.7 L, Hct 33.7 L, MCV 93.9, MCH 29.8, MCHC 31.8 L, RDW Std Deviation 44.7 H, RDW Coeff of Rick 12.9, Plt Count 420, MPV 10.3, Neut % (Auto) Not Reportable, Absolute Neuts (auto) 31.9 H, Absolute Lymphs (auto) 1.05, Total Counted 100, Neutrophils % (Manual) 91 H, Lymphocytes % (Manual) 3 L, Monocytes % (Manual) 2, Myelocytes % 3 H, Promyelocytes % 1 H, Differential Comment SCANNED, Diff Path Review May , Sodium 140, Potassium 4.3, Chloride 111 H, Carbon Dioxide 21.0, Anion Gap 8, BUN 14, Creatinine 0.73, Estim Creat Clear Calc 47.63, Est GFR (MDRD) Af Amer 99, Est GFR (MDRD) Non-Af 81, BUN/Creatinine Ratio 19.2, Glucose 98, Calcium 7.2 L, Phosphorus 3.4, Magnesium 1.7 Micro: Microbiology 09/01/23 Unknown Fluid - Peritoneal Gram Stain - Final 09/01/23 Unknown Fluid - Peritoneal Body Fluid Culture - Final Strep anginosus 09/01/23 Unknown Fluid - Peritoneal Anaerobic Culture - Final Anaerobic cocci Bacteroides fragilis 09/06/23 10:19 Stool Enteric Bacteriology - Final 09/06/23 10:42 Stool Clostridioides difficile (PCR) - Final Physical Exam Const oriented x3 and no apparent distress Resp normal respiratory effort GI soft to palpation and non-tender Assessment & Plan Assessment/Plan (1) Acute perforated appendicitis: PLAN: Patient had ileocecectomy yesterday. The patient's drain appears serosanguineous with a little bit of purulence. Patient's white count shanae again today to 35. Her C. difficile was negative 2 days ago as well as urine culture. She had urinary retention overnight and had a straight cath. I informed the nurse that if she is still retaining and if they do a scan to just place a Triana. I will repeat a CBC at 2 PM. If there is any variance in her vital signs, which are now stable, I will order a CT scan to evaluate. Paul Ruby MD Pager: [facility] [address] [place] [address], [address] [place] [address] Office:
--- NOTE | 2023-09-08 11:09 | NURSING ---
pt has been up in chair all am, using I.S., is ambulating in hallway 3rd time-denies pain
[2023-09-08] MEDS: Menthol/Lanolin/Calamine/Znox 113 GM Tube 1 APPLIC TOPICAL ×2 (11:39→20:51)
[2023-09-08 14:13] LABS: Absolute Lymphocyte Count 2.01 X10^3/uL (0.83-4.51); Absolute Neutrophil Count 24.4 X10^3/uL (2.0-7.7); Basophil# 0.08 X10^3/uL; Basophil% 0.2 % (0-1); Eosinophil# 0.12 X10^3/uL; Eosinophils% 0.4 % (0-5); Hematocrit 38.5 % (37-47); Hemoglobin 12.1 g/dL (12.0-15.0); Lymphocyte # 2.01 X10^3/ul (0.83-4.51); Lymphocyte % 6.2 % (19-41); Mean Corp Hgb Conc 31.4 g/dL (32-36); Mean Corpuscular Volume 95.5 fL (81-99); Mean Platelet Vol. 10.2 fl (6.2-12.0); Monocyte% 13.8 % (0-10); NRBC Flagged by Analyzer 0 % (0-5); Neutrophil # 24.43 X10^3/uL (2.7-7.7); Neutrophil % 74.8 % (47-70); POSITIVE COUNT YES; POSITIVE DIFFERENTIAL YES; POSITIVE MORPHOLOGY YES; Platelet Count 467 K/mm3 (150-450); RBC Distribution Width CV 13.1 % (11.6-14.6); RBC Distribution Width SD 45.7 fl (35.1-43.9); Red Blood Count 4.03 M/mm3 (4.2-5.4)
[2023-09-08 14:22] LABS: Differential Indicated SCAN CRITERIA MET; White Blood Count 32.6 K/mm3 (4.4-11.0)
[2023-09-08 15:02] LABS: Differential Comment SCANNED
[2023-09-09] VITALS (9 sets, daily range): BP systolic 130–141; BP diastolic 59–69; PULSE 73–93; RESP 16–18; TEMP 36.7–37.3; O2SAT 91–95
[2023-09-09] MEDS: Ketorolac 15 MG/ML Vial IV ×3 (01:49→12:15)
[2023-09-09] MEDS: 0.9% Saline Lock 10 ML Syringe IV ×4 (01:49→22:01)
[2023-09-09] MEDS: Piperacil/Tazobactam 3.375 GM in 0.9% Normal Saline (50mL MB+) 50 ML IV ×3 (06:14→22:03)
[2023-09-09 06:40] LABS: Anion Gap 6 (5-15); BUN 18 mg/dL (7-18); BUN/Creat Ratio 26.8 RATIO (10-20); Calcium,Total 7.3 mg/dL (8.5-10.1); Chloride 113 mmol/L (98-107); Creatinine, Serum 0.67 mg/dL (0.55-1.02); EST Glomerular Filtration Rate 89 mL/min (>60); Est Glom Filt Rate - Afr Amer 108 mL/min (>60); Estimated Creatinine Clearance 47.63 ml/min; Glucose 85 mg/dL (74-106); Potassium 3.7 mmol/L (3.5-5.1); Sodium Level 142 mmol/L (136-145)
[2023-09-09] MEDS: Ipratropium/Albuterol Sulfate 3 ML AMPUL.NEB INHALATION ×3 (07:18→19:02)
--- NOTE | 2023-09-09 08:01 | PN.SURG_ITS ---
Subjective Subjective Patient reports no nausea or vomiting from overnight. She is not having any significant pain. She does say that she did have a little bit of cramping when she started feeling gas moving through and she did pass gas once overnight. Objective Data Objective Data Vital Signs: Vital Signs Temp Pulse Resp BP Pulse Ox O2 Del Method O2 Flow Rate 98.1 F 84 18 141/64 H 93 Room Air 2 09/09/23 06:20 09/09/23 06:20 09/09/23 06:20 09/09/23 06:20 09/09/23 06:20 09/09/23 06:20 09/08/23 07:02 Oxygen Flow Rate (L/min) 2 Oxygen Delivery Method Room Air Weight: 124 lb 8.979 oz Body Mass Index (BMI) 21.4 Intake & Output: Intake and Output for Last 24 Hours 09/07/23 09/08/23 09/09/23 23:59 23:59 23:59 Intake Total 2841.67 / 2841.67 1385 / 1385 70 / 70 Output Total 1615 / 1615 1750 / 1750 370 / 370 Balance 1226.67 / 1226.67 -365 / -365 -300 / -300 Lab / Micro Data 09/08/23 14:00 09/09/23 05:34 Labs: Laboratory Results - last 24 hr 09/08/23 14:00: WBC 32.6 H*, RBC 4.03 L, Hgb 12.1, Hct 38.5, MCV 95.5, MCH 30.0, MCHC 31.4 L, RDW Std Deviation 45.7 H, RDW Coeff of Rick 13.1, Plt Count 467 H, MPV 10.2, Immature Gran % (Auto) 4.600 H, Neut % (Auto) 74.8 H, Lymph % (Auto) 6.2 L, [place] % (Auto) 13.8 H, Eos % (Auto) 0.4, Baso % (Auto) 0.2, Absolute Neuts (auto) 24.4 H, Absolute Lymphs (auto) 2.01, Nucleated RBC % 0, Differential Comment SCANNED, Diff Path Review September09/09/23 05:34: Sodium 142, Potassium 3.7, Chloride 113 H, Carbon Dioxide 23.0, Anion Gap 6, BUN 18, Creatinine 0.67, Estim Creat Clear Calc 47.63, Est GFR (MDRD) Af Amer 108, Est GFR (MDRD) Non-Af 89, BUN/Creatinine Ratio 26.8 H, Glucose 85, Calcium 7.3 L Micro: Microbiology 09/06/23 16:25 Urine, Clean Catch Urine Culture - Final Culture exhibits no growth. 09/01/23 Unknown Fluid - Peritoneal Gram Stain - Final 09/01/23 Unknown Fluid - Peritoneal Body Fluid Culture - Final Strep anginosus 09/01/23 Unknown Fluid - Peritoneal Anaerobic Culture - Final Anaerobic cocci Bacteroides fragilis 09/06/23 10:19 Stool Enteric Bacteriology - Final 09/06/23 10:42 Stool Clostridioides difficile (PCR) - Final Physical Exam Const oriented x3 and no apparent distress Resp normal respiratory effort GI soft to palpation Inspection: abdominal distention Assessment & Plan Assessment/Plan (1) Acute perforated appendicitis: PLAN: Patient is postoperative day 2 from ileocecectomy. The patient's white count was significantly elevated yesterday. She continues to be on Zosyn. Her incisions appear clean dry and intact with no signs of infection. Her abdomen is slightly distended although it is soft and nontender. Her drain is serous. If her white count remains significantly elevated today I will order repeat CT scan to evaluate. If she has a normal CT scan and is feeling well later today I might start her on clear liquids but awaiting morning labs. Continue Triana for urinary retention. Paul Ruby MD Pager: [facility] [address] [place] [address], [address] [place] [address] Office:
[2023-09-09 08:06] LABS: Absolute Lymphocyte Count 1.04 X10^3/uL (0.83-4.51); Absolute Neutrophil Count 13.6 X10^3/uL (2.0-7.7); Basophil# 0.15 X10^3/uL; Basophil% 0.8 % (0-1); Eosinophil# 0.81 X10^3/uL; Eosinophils% 4.4 % (0-5); Hematocrit 31.4 % (37-47); Hemoglobin 9.9 g/dL (12.0-15.0); Lymphocyte # 1.04 X10^3/ul (0.83-4.51); Lymphocyte % 5.6 % (19-41); Mean Corp Hgb Conc 31.5 g/dL (32-36); Mean Corpuscular Hgb 29.8 pg (27.0-32.0); Mean Corpuscular Volume 94.6 fL (81-99); Mean Platelet Vol. 10.8 fl (6.2-12.0); Monocyte# 2.23 X10^3/uL; NRBC Flagged by Analyzer 0 % (0-5); Neutrophil # 13.61 X10^3/uL (2.7-7.7); Neutrophil % 73.5 % (47-70); POSITIVE DIFFERENTIAL YES; Platelet Count 311 K/mm3 (150-450); RBC Distribution Width CV 13.1 % (11.6-14.6); RBC Distribution Width SD 45.1 fl (35.1-43.9); Red Blood Count 3.32 M/mm3 (4.2-5.4); White Blood Count 18.5 K/mm3 (4.4-11.0)
[2023-09-09 08:13] LABS: Differential Indicated SCAN CRITERIA MET
[2023-09-09] MEDS: Aspirin 81 MG TAB.CHEW PO (09:12)
[2023-09-09] MEDS: Anastrozole 1 MG TABLET PO (09:13)
[2023-09-09] MEDS: Menthol/Lanolin/Calamine/Znox 113 GM Tube 1 APPLIC TOPICAL ×2 (09:13→22:02)
[2023-09-09 09:30] LABS: Differential Comment SCANNED
--- NOTE | 2023-09-09 13:32 | PCM.PN.HOSP ---
Reason for Visit Reason for Visit: Diagnoses Elevated white blood cell count, unspecified (09/01/23) Acute appendicitis with perforation, localized peritonitis, and gangrene, without abscess (09/01/23) Unspecified acute appendicitis (09/01/23) Objective Data Objective Data Vital Signs: Vital Signs Temp Pulse Resp BP Pulse Ox O2 Del Method O2 Flow Rate 99.1 F 87 16 137/59 H 93 Room Air 2 09/09/23 09:37 09/09/23 09:37 09/09/23 09:37 09/09/23 09:37 09/09/23 09:37 09/09/23 09:37 09/08/23 07:02 Oxygen Flow Rate (L/min) 2 Oxygen Delivery Method Room Air Weight: 124 lb 8.979 oz Body Mass Index (BMI) 21.4 Intake & Output: Intake and Output for Last 24 Hours 09/07/23 09/08/23 09/09/23 23:59 23:59 23:59 Intake Total 2841.67 / 2841.67 1385 / 1385 120 / 120 Output Total 1615 / 1615 1750 / 1750 570 / 570 Balance 1226.67 / 1226.67 -365 / -365 -450 / -450 Lab / Micro Data 09/09/23 05:34 09/09/23 05:34 Labs: Laboratory Results - last 24 hr 09/08/23 14:00: WBC 32.6 H*, RBC 4.03 L, Hgb 12.1, Hct 38.5, MCV 95.5, MCH 30.0, MCHC 31.4 L, RDW Std Deviation 45.7 H, RDW Coeff of Rick 13.1, Plt Count 467 H, MPV 10.2, Immature Gran % (Auto) 4.600 H, Neut % (Auto) 74.8 H, Lymph % (Auto) 6.2 L, [place] % (Auto) 13.8 H, Eos % (Auto) 0.4, Baso % (Auto) 0.2, Absolute Neuts (auto) 24.4 H, Absolute Lymphs (auto) 2.01, Nucleated RBC % 0, Differential Comment SCANNED, Diff Path Review September09/09/23 05:34: WBC 18.5 H, RBC 3.32 L, Hgb 9.9 L, Hct 31.4 L, MCV 94.6, MCH 29.8, MCHC 31.5 L, RDW Std Deviation 45.1 H, RDW Coeff of Rick 13.1, Plt Count 311, MPV 10.8, Immature Gran % (Auto) 3.700 H, Neut % (Auto) 73.5 H, Lymph % (Auto) 5.6 L, [place] % (Auto) 12.0 H, Eos % (Auto) 4.4, Baso % (Auto) 0.8, Absolute Neuts (auto) 13.6 H, Absolute Lymphs (auto) 1.04, Nucleated RBC % 0, Differential Comment SCANNED, Diff Path Review September, Sodium 142, Potassium 3.7, Chloride 113 H, Carbon Dioxide 23.0, Anion Gap 6, BUN 18, Creatinine 0.67, Estim Creat Clear Calc 47.63, Est GFR (MDRD) Af Amer 108, Est GFR (MDRD) Non-Af 89, BUN/Creatinine Ratio 26.8 H, Glucose 85, Calcium 7.3 L Micro: Microbiology 09/06/23 16:25 Urine, Clean Catch Urine Culture - Final Culture exhibits no growth. 09/01/23 Unknown Fluid - Peritoneal Gram Stain - Final 09/01/23 Unknown Fluid - Peritoneal Body Fluid Culture - Final Strep anginosus 09/01/23 Unknown Fluid - Peritoneal Anaerobic Culture - Final Anaerobic cocci Bacteroides fragilis 09/06/23 10:19 Stool Enteric Bacteriology - Final 09/06/23 10:42 Stool Clostridioides difficile (PCR) - Final Physical Exam Narrative Seen and examined. Patient has multiple flatus passed but did not had bowel movement yet. Had surgical follow-up. Last surgery on 09/07/2023. Triana catheterization for urine retention. Clear urine. No chest pain or shortness of breath. Started on clear liquid. Physical exam General: Alert, Oriented x3, Cooperative HEENT: Atraumatic, PERRLA, EOMI, Normocephalic Oral: No Gingival or Mucosal Lesions/ Ulcerations Neck: Supple, No JVD, Negative Carotid Bruits Chest wall/Lungs: Air entry diminished in bilateral lung bases. No crepitation/rhonchi Cardiovascular: Regular rate, Regular Rhythm, Normal S1, Normal S2, No M/G/R Abdomen: Bowel Sounds present soft, Non Tender, Non-Distended. Operative dressing present lower midline with SANKET drain.50 mill serosanguineous fluid. : Triana catheter clear urine. No dysuria. No renal angle tenderness. No suprapubic tenderness. Extremities: No edema, Capillary Refill Less than 3 Seconds Skin: No rashes, No breakdown Musculoskeletal: No Tenderness to Palpation of Joints or Extremities Neurological: Cranial nerves II-XII grossly intact, DTR 2+/4. No acute focal neurological deficit. Psych/Mental Status: Normal Affect, Appropriate. Assessment & Plan Assessment/Plan (1) Acute appendicitis: (2) Leukocytosis: PLAN: Plan Patient is an 83 year old female who presented to [facility] ED on 09/01/2023 with acute abdominal pain. Diagnosed with acute appendicitis, admitted under general surgery. Medicine consulted for medical management. 1. Complicated acute appendicitis with appendicolith, perforated appendicitis with persistent phlegmon and leukocytosis - General surgery primary. S/p laparoscopic appendectomy w/ drain placement w/ Dr. Ulloa on 08/31. Was noted that patient had purulent fluid upon mobilization of right colon and severely inflamed appendiceal base w/ freely present appendicolith . the peritoneal cavity. Continue treatment with IV Zosyn, maintenance IV fluids, IV Dilaudid for pain management. Further management per surgery. 09/07: Patient was found perforated appendicitis status post lap appendectomy with persistent phlegmon and leukocytosis. Patient had open ileocecectomy with primary stapled [id number] functional end-to-end ileocolonic anastomosis on 09/07/2023. Earlier she had laparoscopic appendectomy with drain placement on 09/01/2023 for acute appendicitis with appendicolith. Advised active ambulation, incentive spirometry. 09/08: Patient had several flatus passed. Abdomen is soft and bowel sounds present. Leukocytosis decreasing 18.5 thousand. Mild anemia probably due to 2 different surgeries, acute on chronic. H&H 9.9. Dr. Asher 12.7. No acute external bleeding. Electrolytes in normal range. Started on clear liquid diet. 2. History of splenic infarct - Home baby aspirin held on 08/31, resumed on 09/01. 09/07: Home medication reconciliation done. 3. History of breast cancer - Continue home anastrozole. 4. History of multiple cardiac conditions - History of pericardial effusion requiring pericardial window and drainage (done at [facility] in 2018), aortic valve cusp abnormality, nonrheumatic mitral valve insufficiency, episode of atrial flutter, splenic infarct on aspirin, mild pulmonary hypertension. See HPI above for further details. Last cardiology visit in 2021, patient very stable at that time with good improvement in TTE findings. Twelve-lead EKG individually reviewed. EKG w/ NSR, incomplete RBBB. No ST changes. CXR does not show acute infiltrate. No cardiac specific needs while inpatient, continue outpatient follow up as needed. Charges/Coding Visit Charges Inpatient E&M: 12772 Subs Hosp L2
[2023-09-10] VITALS (8 sets, daily range): BP systolic 127–145; BP diastolic 57–67; PULSE 81–91; RESP 18–20; TEMP 36.4–37.1; O2SAT 93–98
[2023-09-10] MEDS: Ketorolac 15 MG/ML Vial IV ×4 (04:23→23:50)
[2023-09-10] MEDS: 0.9% Normal Saline (250mL Bag) 250 ML 15 ML IV (04:26)
[2023-09-10] MEDS: Piperacil/Tazobactam 3.375 GM in 0.9% Normal Saline (50mL MB+) 50 ML IV ×3 (04:29→21:19)
[2023-09-10] MEDS: Ipratropium/Albuterol Sulfate 3 ML AMPUL.NEB INHALATION ×2 (06:46→12:03)
[2023-09-10 06:49] LABS: Absolute Lymphocyte Count 0.98 X10^3/uL (0.83-4.51); Absolute Neutrophil Count 10.6 X10^3/uL (2.0-7.7); Basophil# 0.09 X10^3/uL; Basophil% 0.6 % (0-1); Eosinophil# 0.75 X10^3/uL; Eosinophils% 5.1 % (0-5); Hematocrit 31.2 % (37-47); Hemoglobin 10.1 g/dL (12.0-15.0); Lymphocyte # 0.98 X10^3/ul (0.83-4.51); Lymphocyte % 6.7 % (19-41); Mean Corp Hgb Conc 32.4 g/dL (32-36); Mean Corpuscular Hgb 30.4 pg (27.0-32.0); Mean Platelet Vol. 10.6 fl (6.2-12.0); Monocyte# 1.76 X10^3/uL; NRBC Flagged by Analyzer 0 % (0-5); Neutrophil # 10.63 X10^3/uL (2.7-7.7); Neutrophil % 72.8 % (47-70); POSITIVE DIFFERENTIAL YES; Platelet Count 282 K/mm3 (150-450); RBC Distribution Width SD 44.5 fl (35.1-43.9); Red Blood Count 3.32 M/mm3 (4.2-5.4); White Blood Count 14.6 K/mm3 (4.4-11.0)
[2023-09-10 07:17] LABS: Anion Gap 5 (5-15); BUN 15 mg/dL (7-18); BUN/Creat Ratio 25.7 RATIO (10-20); Calcium,Total 7.5 mg/dL (8.5-10.1); Chloride 111 mmol/L (98-107); Creatinine, Serum 0.58 mg/dL (0.55-1.02); EST Glomerular Filtration Rate 105 mL/min (>60); Est Glom Filt Rate - Afr Amer 127 mL/min (>60); Estimated Creatinine Clearance 47.63 ml/min; Glucose 96 mg/dL (74-106); Potassium 3.3 mmol/L (3.5-5.1); Sodium Level 142 mmol/L (136-145)
--- NOTE | 2023-09-10 07:30 | PN.SURG_ITS ---
Subjective Subjective Patient seen and examined during AM rounds. She reports that she had some gas overnight and that was the first time that she required any IV pain medication since surgery. She additionally reports that she had a loose bowel movement with some pellets this morning. She states she feels well and is eager for a diet advancement but did note that she became full quickly on her liquid yesterday. Objective Data Objective Data Vital Signs: Vital Signs Temp Pulse Resp BP Pulse Ox O2 Del Method O2 Flow Rate 98.8 F 83 18 140/63 H 93 Room Air 2 09/10/23 04:20 09/10/23 06:47 09/10/23 06:47 09/10/23 04:20 09/10/23 06:47 09/10/23 06:47 09/08/23 07:02 Oxygen Flow Rate (L/min) 2 Oxygen Delivery Method Room Air Weight: 124 lb 8.979 oz Body Mass Index (BMI) 21.4 Intake & Output: Intake and Output for Last 24 Hours 09/08/23 09/09/23 09/10/23 23:59 23:59 23:59 Intake Total 1385 / 1385 905.5 / 905.5 100 / 100 Output Total 1750 / 1750 990 / 990 55 / 55 Balance -365 / -365 -84.5 / -84.5 45 / 45 Lab / Micro Data 09/10/23 06:10 09/10/23 06:10 Labs: Laboratory Results - last 24 hr 09/09/23 05:34: WBC 18.5 H, RBC 3.32 L, Hgb 9.9 L, Hct 31.4 L, MCV 94.6, MCH 29.8, MCHC 31.5 L, RDW Std Deviation 45.1 H, RDW Coeff of Rick 13.1, Plt Count 311, MPV 10.8, Immature Gran % (Auto) 3.700 H, Neut % (Auto) 73.5 H, Lymph % (Auto) 5.6 L, [place] % (Auto) 12.0 H, Eos % (Auto) 4.4, Baso % (Auto) 0.8, Absolute Neuts (auto) 13.6 H, Absolute Lymphs (auto) 1.04, Nucleated RBC % 0, Differential Comment SCANNED, Diff Path Review September09/10/23 06:10: Sodium 142, Potassium 3.3 L, Chloride 111 H, Carbon Dioxide 26.0, Anion Gap 5, BUN 15, Creatinine 0.58, Estim Creat Clear Calc 47.63, Est GFR (MDRD) Af Amer 127, Est GFR (MDRD) Non-Af 105, BUN/Creatinine Ratio 25.7 H, Glucose 96, Calcium 7.5 L Micro: Microbiology 09/06/23 16:25 Urine, Clean Catch Urine Culture - Final Culture exhibits no growth. 09/01/23 Unknown Fluid - Peritoneal Gram Stain - Final 09/01/23 Unknown Fluid - Peritoneal Body Fluid Culture - Final Strep anginosus 09/01/23 Unknown Fluid - Peritoneal Anaerobic Culture - Final Anaerobic cocci Bacteroides fragilis 09/06/23 10:19 Stool Enteric Bacteriology - Final 09/06/23 10:42 Stool Clostridioides difficile (PCR) - Final Physical Exam Const oriented x3 and no apparent distress Resp normal respiratory effort GI GI Narrative: Minimally distended, serous content to SANKET drain, wound looks appropriate with mild ischemia around umbilicus but no erythema or significant drainage. Patient has largely nontender with palpation x 4 quadrants. Assessment & Plan Assessment/Plan (1) Acute perforated appendicitis: PLAN: Patient is postoperative day 9 from laparoscopic appendectomy with drain placement for complicated appendicitis and then postoperative day 3 from takeback for laparotomy with ileocecectomy (please note an error in technical solutions consultant was identified with my prior note designating postoperative day 56). Patient appears to be doing well clinically with minimal pain complaints. Her white count has been downtrending appropriately. Her drain is clear. She is tolerating liquids and now having further bowel function so I will advance her to a full liquid diet this morning. Additionally, she required a Triana catheter for urinary retention over the weekend which I will look to pull now as she likely went into retention secondary to anesthesia and medication effect which should now be metabolized out of her system. If patient continues to tolerated diet and white count is further normalized we will anticipate increase to transitional diet and DC drainage catheter tomorrow. Appreciate medical assistance for optimization of other comorbidities and do agree for implementation of DVT prophylaxis with enoxaparin given stable hemoglobin. Siddhartha Ulloa MD General Surgery Endocrine Surgery Pager: [facility] [address] [place] [address], [facility], [address] [place] [id number] Office: [phone] Charges/Coding Visit Charges Inpatient E&M: 77368 Subs Hosp L2
[2023-09-10 07:33] LABS: Differential Indicated SCAN CRITERIA MET
[2023-09-10] MEDS: Aspirin 81 MG TAB.CHEW PO (08:06)
[2023-09-10] MEDS: Anastrozole 1 MG TABLET PO (08:07)
[2023-09-10] MEDS: Menthol/Lanolin/Calamine/Znox 113 GM Tube 1 APPLIC TOPICAL ×2 (08:08→21:20)
--- NOTE | 2023-09-10 08:36 | PN.HOSP_ITS ---
Reason for Visit Reason for Visit: Diagnoses Elevated white blood cell count, unspecified (09/01/23) Acute appendicitis with perforation, localized peritonitis, and gangrene, without abscess (09/01/23) Unspecified acute appendicitis (09/01/23) Objective Data Objective Data Vital Signs: Vital Signs Temp Pulse Resp BP Pulse Ox O2 Del Method O2 Flow Rate 98.3 F 83 18 145/65 H 98 Room Air 2 09/10/23 07:55 09/10/23 07:55 09/10/23 07:55 09/10/23 07:55 09/10/23 07:55 09/10/23 07:55 09/08/23 07:02 Oxygen Flow Rate (L/min) 2 Oxygen Delivery Method Room Air Weight: 56.5 kg Body Mass Index (BMI) 21.4 Intake & Output: Intake and Output for Last 24 Hours 09/08/23 09/09/23 09/10/23 23:59 23:59 23:59 Intake Total 1385 / 1385 905.5 / 905.5 108.5 / 108.5 Output Total 1750 / 1750 990 / 990 115 / 115 Balance -365 / -365 -84.5 / -84.5 -6.5 / -6.5 Lab / Micro Data 09/10/23 06:10 09/10/23 06:10 Labs: Laboratory Results - last 24 hr 09/09/23 05:34: Differential Comment SCANNED, Diff Path Review Hannah kasper 09/10/23 06:10: WBC 14.6 H, RBC 3.32 L, Hgb 10.1 L, Hct 31.2 L, MCV 94.0, MCH 30.4, MCHC 32.4, RDW Std Deviation 44.5 H, RDW Coeff of Rick 13.0, Plt Count 282, MPV 10.6, Immature Gran % (Auto) 2.800 H, Neut % (Auto) 72.8 H, Lymph % (Auto) 6.7 L, [place] % (Auto) 12.0 H, Eos % (Auto) 5.1 H, Baso % (Auto) 0.6, Absolute Neuts (auto) 10.6 H, Absolute Lymphs (auto) 0.98, Nucleated RBC % 0, Diff Path Review September, Sodium 142, Potassium 3.3 L, Chloride 111 H, Carbon Dioxide 26.0, Anion Gap 5, BUN 15, Creatinine 0.58, Estim Creat Clear Calc 47.63, Est GFR (MDRD) Af Amer 127, Est GFR (MDRD) Non-Af 105, BUN/Creatinine Ratio 25.7 H, Glucose 96, Calcium 7.5 L Micro: Microbiology 09/06/23 16:25 Urine, Clean Catch Urine Culture - Final Culture exhibits no growth. 09/01/23 Unknown Fluid - Peritoneal Gram Stain - Final 09/01/23 Unknown Fluid - Peritoneal Body Fluid Culture - Final Strep anginosus 09/01/23 Unknown Fluid - Peritoneal Anaerobic Culture - Final Anaerobic cocci Bacteroides fragilis 09/06/23 10:19 Stool Enteric Bacteriology - Final 09/06/23 10:42 Stool Clostridioides difficile (PCR) - Final Physical Exam Narrative Seen and examined. Patient has multiple flatus passed but did not had bowel movement yet. Had surgical follow-up. Last surgery on 09/07/2023. Triana catheterization for urine retention. Clear urine. No chest pain or shortness of breath. Started on clear liquid. Physical exam General: Alert, Oriented x3, Cooperative HEENT: Atraumatic, PERRLA, EOMI, Normocephalic Oral: No Gingival or Mucosal Lesions/ Ulcerations Neck: Supple, No JVD, Negative Carotid Bruits Chest wall/Lungs: Air entry diminished in bilateral lung bases. No crepitation/rhonchi Cardiovascular: Regular rate, Regular Rhythm, Normal S1, Normal S2, No M/G/R Abdomen: Bowel Sounds present soft, Non Tender, Non-Distended. Operative dressing present lower midline with SANKET drain.50 mill serosanguineous fluid. : Triana catheter clear urine. No dysuria. No renal angle tenderness. No suprapubic tenderness. Extremities: No edema, Capillary Refill Less than 3 Seconds Skin: No rashes, No breakdown Musculoskeletal: No Tenderness to Palpation of Joints or Extremities Neurological: Cranial nerves II-XII grossly intact, DTR 2+/4. No acute focal neurological deficit. Psych/Mental Status: Normal Affect, Appropriate. Assessment & Plan Assessment/Plan (1) Acute appendicitis: (2) Leukocytosis: PLAN: Plan Patient is an 83 year old female who presented to [facility] ED on 09/01/2023 with acute abdominal pain. Diagnosed with acute appendicitis, admitted under general surgery. Medicine consulted for medical management. 1. Complicated acute appendicitis with appendicolith, perforated appendicitis with persistent phlegmon and leukocytosis - General surgery primary. S/p laparoscopic appendectomy w/ drain placement w/ Dr. Ulloa on 08/31. Was noted that patient had purulent fluid upon mobilization of right colon and severely inflamed appendiceal base w/ freely present appendicolith . the peritoneal cavity. Continue treatment with IV Zosyn, maintenance IV fluids, IV Dilaudid for pain management. Further management per surgery. 09/07: Patient was found perforated appendicitis status post lap appendectomy with persistent phlegmon and leukocytosis. Patient had open ileocecectomy with primary stapled [id number] functional end-to-end ileocolonic anastomosis on 09/07/2023. Earlier she had laparoscopic appendectomy with drain placement on 09/01/2023 for acute appendicitis with appendicolith. Advised active ambulation, incentive spirometry. 09/08: Patient had several flatus passed. Abdomen is soft and bowel sounds present. Leukocytosis decreasing 18.5 thousand. Mild anemia probably due to 2 different surgeries, acute on chronic. H&H 9.9. Dr. Asher 12.7. No acute external bleeding. Electrolytes in normal range. Started on clear liquid diet. 2. History of splenic infarct - Home baby aspirin held on 08/31, resumed on 09/01. 09/07: Home medication reconciliation done. 3. History of breast cancer - Continue home anastrozole. 4. History of multiple cardiac conditions - History of pericardial effusion requiring pericardial window and drainage (done at [facility] in 2018), aortic valve cusp abnormality, nonrheumatic mitral valve insufficiency, episode of atrial flutter, splenic infarct on aspirin, mild pulmonary hypertension. See HPI above for further details. Last cardiology visit in 2021, patient very stable at that time with good improvement in TTE findings. Twelve-lead EKG individually reviewed. EKG w/ NSR, incomplete RBBB. No ST changes. CXR does not show acute infiltrate. No cardiac specific needs while inpatient, continue outpatient follow up as needed.
--- NOTE | 2023-09-10 08:36 | PCM.PN.HOSP ---
Reason for Visit Reason for Visit: Diagnoses Elevated white blood cell count, unspecified (09/01/23) Acute appendicitis with perforation, localized peritonitis, and gangrene, without abscess (09/01/23) Unspecified acute appendicitis (09/01/23) Subjective Subjective Patient is an 83-year-old lady admitted with abdominal pain underwent laparoscopic appendectomy with drain placement on 09/01/2023 patient had complicated postop. Resulting in patient undergoing repeat surgery with laparotomy with subsequent open ileocecectomy with primary stapled [id number] functional end-to-end ileocolonic anastomosis on 09/07/2023 Objective Data Objective Data Vital Signs: Vital Signs Temp Pulse Resp BP Pulse Ox O2 Del Method O2 Flow Rate 98.3 F 83 18 145/65 H 98 Room Air 2 09/10/23 07:55 09/10/23 07:55 09/10/23 07:55 09/10/23 07:55 09/10/23 07:55 09/10/23 07:55 09/08/23 07:02 Oxygen Flow Rate (L/min) 2 Oxygen Delivery Method Room Air Weight: 56.5 kg Body Mass Index (BMI) 21.4 Intake & Output: Intake and Output for Last 24 Hours 09/08/23 09/09/23 09/10/23 23:59 23:59 23:59 Intake Total 1385 / 1385 905.5 / 905.5 108.5 / 108.5 Output Total 1750 / 1750 990 / 990 115 / 115 Balance -365 / -365 -84.5 / -84.5 -6.5 / -6.5 Lab / Micro Data 09/10/23 06:10 09/10/23 06:10 Labs: Laboratory Results - last 24 hr 09/09/23 05:34: Differential Comment SCANNED, Diff Path Review September09/10/23 06:10: WBC 14.6 H, RBC 3.32 L, Hgb 10.1 L, Hct 31.2 L, MCV 94.0, MCH 30.4, MCHC 32.4, RDW Std Deviation 44.5 H, RDW Coeff of Rick 13.0, Plt Count 282, MPV 10.6, Immature Gran % (Auto) 2.800 H, Neut % (Auto) 72.8 H, Lymph % (Auto) 6.7 L, [place] % (Auto) 12.0 H, Eos % (Auto) 5.1 H, Baso % (Auto) 0.6, Absolute Neuts (auto) 10.6 H, Absolute Lymphs (auto) 0.98, Nucleated RBC % 0, Diff Path Review May foll, Sodium 142, Potassium 3.3 L, Chloride 111 H, Carbon Dioxide 26.0, Anion Gap 5, BUN 15, Creatinine 0.58, Estim Creat Clear Calc 47.63, Est GFR (MDRD) Af Amer 127, Est GFR (MDRD) Non-Af 105, BUN/Creatinine Ratio 25.7 H, Glucose 96, Calcium 7.5 L Micro: Microbiology 09/06/23 16:25 Urine, Clean Catch Urine Culture - Final Culture exhibits no growth. 09/01/23 Unknown Fluid - Peritoneal Gram Stain - Final 09/01/23 Unknown Fluid - Peritoneal Body Fluid Culture - Final Strep anginosus 09/01/23 Unknown Fluid - Peritoneal Anaerobic Culture - Final Anaerobic cocci Bacteroides fragilis 09/06/23 10:19 Stool Enteric Bacteriology - Final 09/06/23 10:42 Stool Clostridioides difficile (PCR) - Final Physical Exam Narrative GENERAL: cooperative HEENT: Atraumatic; normocephalic EYES; Anicteric, Normal Conjunctiva NECK; supple, normal thyroid, RESPIRATORY: Diminished to auscultation CARDIOVASCULAR: Regular S1 S2, GI: Midline incision clean dry and intact SANKET drain with serosanguineous fluid : No Renal angle tenderness; EXTREMITIES: No edema, no clubbing, MUSCULOSKELETAL: no muscle wasting NEURO: Awake; no lateralizing signs. SKIN: No Rash PSYCH; Flat affect Assessment & Plan Assessment/Plan (1) Acute appendicitis: (2) Leukocytosis: PLAN: Plan Patient is an 83-year-old lady admitted with abdominal pain underwent laparoscopic appendectomy with drain placement on 09/01/2023 patient had complicated postop. Resulting in patient undergoing repeat surgery with laparotomy with subsequent open ileocecectomy with primary stapled [id number] functional end-to-end ileocolonic anastomosis on 09/07/2023 1. Complicated acute appendicitis ? underwent laparoscopic appendectomy with drain placement on 09/01/2023 patient had complicated postop. Resulting in patient undergoing repeat surgery with laparotomy with subsequent open ileocecectomy with primary stapled [id number] functional end-to-end ileocolonic anastomosis on 09/07/2023. Patient has return of bowel function plan is for patient to be initiated on clear liquids 2. History of splenic infarct ? Patient was on on aspirin at home held on admission 3. Anemia - Secondary to chronic disorder monitoring H&H and transfuse if patient becomes symptomatic or hemoglobin falls below 7 4. Hypokalemia ? Corrected per protocol 5. History of breast cancer ? Currently in remission patient is on anastrozole did continue 6. History of bradycardia effusion ? Requiring pericardial window and drainage at [facility] in 2018 7. History of valvular heart disease ? With noted aortic valve Abnormalities as well as nonrheumatic mitral valve insufficiency 8. Mild pulmonary hypertension ? Pulmonary toileting as well as supplemental oxygen 9. DVT prophylaxis ? Patient started on Lovenox starting 09/10/2023 10. Physical deconditioning - Requested for PT OT eval and social work coordinator to assist with discharge planning Charges/Coding Visit Charges Inpatient E&M: 17048 Subs Hosp L3
[2023-09-10] MEDS: 0.9% Saline Lock 10 ML Syringe IV ×3 (10:33→23:50)
[2023-09-10] MEDS: Enoxaparin 40 MG/0.4 ML Syringe SC (10:33)
--- NOTE | 2023-09-10 12:07 | CASEMGMT ---
RN CM into pt room, pt sitting up in chair in no distress receiving breathing treatment. Pt states she is ambulating the halls and feels she is maintaining her strength. Pt is aware that if she starts feeling weak to notify the RN CM and therapy can be ordered. 6 clicks continues to be 24. Pt states her plan is still to return home post hospitalization. RN CM to follow.
[2023-09-10 13:43] LABS: Pathologist Review Reviewed
[2023-09-10 13:46] LABS: Pathologist Review Reviewed
[2023-09-10 13:46] LABS: Pathologist Review Reviewed
[2023-09-10 13:47] LABS: Pathologist Review Reviewed
[2023-09-10 13:54] LABS: Pathologist Review Reviewed
[2023-09-11] VITALS (8 sets, daily range): BP systolic 131–143; BP diastolic 60–71; PULSE 82–94; RESP 16–20; TEMP 36.6–37; O2SAT 94–95
[2023-09-11] MEDS: Piperacil/Tazobactam 3.375 GM in 0.9% Normal Saline (50mL MB+) 50 ML IV ×3 (06:00→23:15)
[2023-09-11 07:10] LABS: Absolute Neutrophil Count 11.8 X10^3/uL (2.0-7.7); Basophil# 0.21 X10^3/uL; Basophil% 1.3 % (0-1); Eosinophil# 0.84 X10^3/uL; Eosinophils% 5.1 % (0-5); Hematocrit 33.8 % (37-47); Lymphocyte % 9.7 % (19-41); Mean Corp Hgb Conc 32.5 g/dL (32-36); Mean Corpuscular Hgb 30.1 pg (27.0-32.0); Mean Corpuscular Volume 92.6 fL (81-99); Mean Platelet Vol. 10.8 fl (6.2-12.0); Monocyte# 1.76 X10^3/uL; Monocyte% 10.6 % (0-10); NRBC Flagged by Analyzer 0 % (0-5); Neutrophil % 71.1 % (47-70); POSITIVE DIFFERENTIAL YES; Platelet Count 354 K/mm3 (150-450); RBC Distribution Width SD 43.8 fl (35.1-43.9); Red Blood Count 3.65 M/mm3 (4.2-5.4); White Blood Count 16.6 K/mm3 (4.4-11.0)
[2023-09-11] MEDS: Ipratropium/Albuterol Sulfate 3 ML AMPUL.NEB INHALATION ×3 (07:13→19:11)
[2023-09-11 07:29] LABS: Differential Indicated SCAN CRITERIA MET
[2023-09-11 07:47] LABS: Differential Comment SCANNED
--- NOTE | 2023-09-11 07:48 | PN.HOSP_ITS ---
Reason for Visit Reason for Visit: Diagnoses Elevated white blood cell count, unspecified (09/01/23) Acute appendicitis with perforation, localized peritonitis, and gangrene, without abscess (09/01/23) Unspecified acute appendicitis (09/01/23) Subjective Subjective Patient seen WBC count trending up. Subsequent evaluation with CT of the abdomen and pelvis ordered by general surgery Objective Data Objective Data Vital Signs: Vital Signs Temp Pulse Resp BP Pulse Ox O2 Del Method O2 Flow Rate 97.9 F 83 18 138/69 H 95 Room Air 2 09/11/23 03:23 09/11/23 03:23 09/11/23 03:23 09/11/23 03:23 09/11/23 03:23 09/11/23 03:23 09/08/23 07:02 Oxygen Flow Rate (L/min) 2 Oxygen Delivery Method Room Air Weight: 56.5 kg Body Mass Index (BMI) 21.4 Intake & Output: Intake and Output for Last 24 Hours 09/09/23 09/10/23 09/11/23 23:59 23:59 23:59 Intake Total 905.5 / 905.5 208.5 / 208.5 50 / 50 Output Total 990 / 990 500 / 500 350 / 350 Balance -84.5 / -84.5 -291.5 / -291.5 -300 / -300 Lab / Micro Data 09/11/23 06:28 09/11/23 06:28 Labs: Laboratory Results - last 24 hr 09/07/23 06:25: Diff Path Review Reviewed 09/08/23 05:40: Diff Path Review Reviewed 09/08/23 14:00: Diff Path Review Reviewed 09/09/23 05:34: Diff Path Review Reviewed 09/10/23 06:10: Diff Path Review Reviewed 09/11/23 06:28: WBC 16.6 H, RBC 3.65 L, Hgb 11.0 L, Hct 33.8 L, MCV 92.6, MCH 30.1, MCHC 32.5, RDW Std Deviation 43.8, RDW Coeff of Rick 13.0, Plt Count 354, MPV 10.8, Immature Gran % (Auto) 2.200 H, Neut % (Auto) 71.1 H, Lymph % (Auto) 9.7 L, [place] % (Auto) 10.6 H, Eos % (Auto) 5.1 H, Baso % (Auto) 1.3 H, Absolute Neuts (auto) 11.8 H, Absolute Lymphs (auto) 1.60, Nucleated RBC % 0, Differe ntial Comment SCANNED, Diff Path Review May foll Micro: Microbiology 09/06/23 16:25 Urine, Clean Catch Urine Culture - Final Culture exhibits no growth. 09/01/23 Unknown Fluid - Peritoneal Gram Stain - Final 09/01/23 Unknown Fluid - Peritoneal Body Fluid Culture - Final Strep anginosus 09/01/23 Unknown Fluid - Peritoneal Anaerobic Culture - Final Anaerobic cocci Bacteroides fragilis 09/06/23 10:19 Stool Enteric Bacteriology - Final 09/06/23 10:42 Stool Clostridioides difficile (PCR) - Final Physical Exam Narrative GENERAL: cooperative HEENT: Atraumatic; normocephalic EYES; Anicteric, Normal Conjunctiva NECK; supple, normal thyroid, RESPIRATORY: Diminished to auscultation CARDIOVASCULAR: Regular S1 S2, GI: Midline incision clean dry and intact SANKET drain with serosanguineous fluid : No Renal angle tenderness; EXTREMITIES: No edema, no clubbing, MUSCULOSKELETAL: no muscle wasting NEURO: Awake; no lateralizing signs. SKIN: No Rash PSYCH; Flat affect Assessment & Plan Assessment/Plan (1) Acute appendicitis: (2) Leukocytosis: PLAN: Plan Patient is an 83-year-old lady admitted with abdominal pain underwent laparoscopic appendectomy with drain placement on 09/01/2023 patient had compli cated postop. Resulting in patient undergoing repeat surgery with laparotomy with subsequent open ileocecectomy with primary stapled [id number] functional end-to-end ileocolonic anastomosis on 09/07/2023 1. Complicated acute appendicitis ? underwent laparoscopic appendectomy with drain placement on 09/01/2023 patient had complicated postop. Resulting in patient undergoing repeat surgery with l aparotomy with subsequent open ileocecectomy with primary stapled [id number] functional end-to-end ileocolonic anastomosis on 09/07/2023. Patient has return of bowel function plan is for patient to be initiated on clear liquids ? 09/11/2023;Patient seen WBC count trending up. Subsequent evaluation with CT of the abdomen and pelvis ordered by general surgery 2. History of splenic infarct ? Patient was on on aspirin at home held on admission 3. Anemia - Secondary to chronic disorder monitoring H&H and transfuse if patient becomes symptomatic or hemoglobin falls below 7 4. Hypokalemia ? Corrected per protocol 5. History of breast cancer ? Currently in remission patient is on anastrozole did continue 6. History of bradycardia effusion ? Requiring pericardial window and drainage at [facility] in 2018 7. History of valvular heart disease ? With noted aortic valve Abnormalities as well as nonrheumatic mitral valve insufficiency 8. Mild pulmonary hypertension ? Pulmonary toileting as well as supplemental oxygen 9. DVT prophylaxis ? Patient started on Lovenox starting 09/10/2023 10. Physical deconditioning - Requested for PT OT eval and case management social worker to assist with discharge planning Time spent in the patient's overall evaluation,decision-making process, review of diagnostic data, adjustment of management, discussion with other providers, nursing nursing and ancillary staff involved in patient's care documentation, 40 Minutes Charges/Coding Visit Charges Inpatient E&M: 31110 [facility] Hosp L2
[2023-09-11 07:50] LABS: Anion Gap 4 (5-15); BUN 15 mg/dL (7-18); Calcium,Total 8.2 mg/dL (8.5-10.1); Chloride 110 mmol/L (98-107); Creatinine, Serum 0.72 mg/dL (0.55-1.02); EST Glomerular Filtration Rate 83 mL/min (>60); Est Glom Filt Rate - Afr Amer 101 mL/min (>60); Estimated Creatinine Clearance 47.63 ml/min; Glucose 95 mg/dL (74-106); Magnesium 2.4 mg/dL (1.6-2.6); Phosphorus 1.9 mg/dL (2.5-4.9); Sodium Level 140 mmol/L (136-145)
--- NOTE | 2023-09-11 07:53 | CT_ITS ---
STUDY: CT ABDOMEN AND PELVIS WITH CONTRAST REASON FOR EXAM: Female, 83 years old. Inc WBC s/p ileocectomy perf appy -- with PO and IV RADIATION DOSAGE (If Supplied By Facility): CTDIvol = ( 15.93 ) mGy, DLP = ( 634.07 ) mGycm TECHNIQUE: Transaxial images were obtained from the dome of the diaphragm to the symphysis pubis with oral contrast. Oral and amp; IV Gastrografin and amp; 100mL Isovue-300 was administered. Sagittal and coronal images were reconstructed. Individualized dose optimization techniques were used for this CT. COMPARISON: Comparison is made with prior examination of September 06, 2023 FINDINGS: Small bilateral pleural effusions right greater than left with bibasilar atelectasis and/or infiltrates worse on the right side. This has progressed as compared to prior study. Carotid artery calcification. Normal liver. Normal gallbladder and extrahepatic biliary system. Normal spleen. Normal pancreas. Normal bilateral adrenal glands. Normal right kidney. Normal left kidney. Normal visualized stomach. The patient is status post ileal cystectomy. Surgical anastomosis seen at the operative site. Postoperative changes are seen. The tip of a drainage catheter is seen at the operative site in the right lower quadrant. Scattered sigmoid diverticula. The previously seen fluid collection in the right hemipelvis has been cleared. The appendix is visualized and appears normal. There is scattered atherosclerotic calcification of the abdominal aorta, without a demonstrated aneurysm. Normal inferior vena cava. Normal retroperitoneum. Normal urinary bladder. There is absence of the uterus consistent with a prior hysterectomy. Normal abdominal wall. There are diffuse degenerative changes of the visualized lumbar spine. Stable minimal anterolisthesis of L4 on L5. CT/Abdomen/Pelvis WITH Contrast IMPRESSION: Status post ileal cystectomy with postoperative changes seen in the right lower quadrant. Postoperative changes are seen. No evidence of free fluid at this time. Small bilateral pleural effusions with bibasilar atelectasis and/or infiltrates more prominent at the right lung base. This has progressed as compared to prior study. Electronically Signed: Blanco Davey MD at 12:20 EDT ,
--- NOTE | 2023-09-11 07:56 | PCM.PN.SRG ---
Subjective Subjective Patient seen and examined during AM rounds. She is found resting in bed. She denies any acute events overnight. She does share that when she is awoken for the early childhood education coordinator assessment she has a trouble with getting to sleep. Other than that she remarks of some darker colored urine but is otherwise doing well. Objective Data Objective Data Vital Signs: Vital Signs Temp Pulse Resp BP Pulse Ox O2 Del Method O2 Flow Rate 97.9 F 83 18 138/69 H 95 Room Air 2 09/11/23 03:23 09/11/23 03:23 09/11/23 03:23 09/11/23 03:23 09/11/23 03:23 09/11/23 03:23 09/08/23 07:02 Oxygen Flow Rate (L/min) 2 Oxygen Delivery Method Room Air Weight: 124 lb 8.979 oz Body Mass Index (BMI) 21.4 Intake & Output: Intake and Output for Last 24 Hours 09/09/23 09/10/23 09/11/23 23:59 23:59 23:59 Intake Total 905.5 / 905.5 208.5 / 208.5 50 / 50 Output Total 990 / 990 500 / 500 350 / 350 Balance -84.5 / -84.5 -291.5 / -291.5 -300 / -300 Lab / Micro Data 09/11/23 06:28 09/11/23 06:28 Labs: Laboratory Results - last 24 hr 09/07/23 06:25: Diff Path Review Reviewed 09/08/23 05:40: Diff Path Review Reviewed 09/08/23 14:00: Diff Path Review Reviewed 09/09/23 05:34: Diff Path Review Reviewed 09/10/23 06:10: Diff Path Review Reviewed 09/11/23 06:28: WBC 16.6 H, RBC 3.65 L, Hgb 11.0 L, Hct 33.8 L, MCV 92.6, MCH 30.1, MCHC 32.5, RDW Std Deviation 43.8, RDW Coeff of Rick 13.0, Plt Count 354, MPV 10.8, Immature Gran % (Auto) 2.200 H, Neut % (Auto) 71.1 H, Lymph % (Auto) 9.7 L, [place] % (Auto) 10.6 H, Eos % (Auto) 5.1 H, Baso % (Auto) 1.3 H, Absolute Neuts (auto) 11.8 H, Absolute Lymphs (auto) 1.60, Nucleated RBC % 0, Differential Comment SCANNED, Diff Path Review September foll, Sodium 140, Potassium 4.0, Chloride 110 H, Carbon Dioxide 26.0, Anion Gap 4 L, BUN 15, Creatinine 0.72, Estim Creat Clear Calc 47.63, Est GFR (MDRD) Af Amer 101, Est GFR (MDRD) Non-Af 83, BUN/Creatinine Ratio 21.0 H, Glucose 95, Calcium 8.2 L, Phosphorus 1.9 L, Magnesium 2.4 Micro: Microbiology 09/06/23 16:25 Urine, Clean Catch Urine Culture - Final Culture exhibits no growth. 09/01/23 Unknown Fluid - Peritoneal Gram Stain - Final 09/01/23 Unknown Fluid - Peritoneal Body Fluid Culture - Final Strep anginosus 09/01/23 Unknown Fluid - Peritoneal Anaerobic Culture - Final Anaerobic cocci Bacteroides fragilis 09/06/23 10:19 Stool Enteric Bacteriology - Final 09/06/23 10:42 Stool Clostridioides difficile (PCR) - Final Physical Exam Const oriented x3 and no apparent distress Resp normal respiratory effort GI GI Narrative: Nondistended, soft, nontender to palpation, incision appropriate with less ischemic appearance to the periumbilical skin. Drain site with moderate amount of serous output. Assessment & Plan Assessment/Plan (1) Acute perforated appendicitis: PLAN: Patient is postoperative day 10 from laparoscopic appendectomy with drain placement for complicated appendicitis and then postoperative day 4 from takeback for laparotomy with ileocecectomy. Patient appears to be doing well clinically with minimal pain complaints. Her white count unfortunately bumped today but some of her differential remains promising. Given the recency of her surgery and no other clear source of infection/inflammation I repeated her CT imaging today. Her drain remains clear and she was able to freely micturate after Triana was discontinued yesterday. CT imaging seems to show the anastomosis in good condition without extravasation of oral contrast nor signs of loculated fluid collections. There is some concern for developing right-sided pneumonia. Appreciate medical assistance for optimization of other comorbidities. Siddhartha Ulloa MD General Surgery Endocrine Surgery Pager: [facility] [address] [place] [address], [facility], [address] [place] [address] Office: [phone] Charges/Coding Visit Charges Inpatient E&M: 44519 Subs Hosp L2
[2023-09-11] MEDS: Menthol/Lanolin/Calamine/Znox 113 GM Tube 1 APPLIC TOPICAL ×2 (08:36→23:15)
[2023-09-11] MEDS: Contrast Allergy Safety Check IV (08:36)
[2023-09-11 09:51] LABS: Color, Urine Yellow (Yellow); Glucose, Dipstick Normal (Normal); Ketone-Dipstick 5 mg/dl (Negative); Leukocyte Esterase-Dipstick 500 /ul (Negative); Nitrite-Dipstick Negative (Negative); Occult Blood-Urine 250 /ul (Negative); Protein-Dipstick 15 mg/dl (Negative); Urine Bilirubin Dipstick Negative (Negative); Urine Clarity Sl. Cloudy (Clear); Urine Urobilinogen Normal (Normal); Urine pH 6.5 (5.0 - 8.0)
[2023-09-11] MEDS: Enoxaparin 40 MG/0.4 ML Syringe SC (10:57)
[2023-09-11] MEDS: 0.9% Saline Lock 10 ML Syringe IV (10:57)
[2023-09-11] MEDS: Anastrozole 1 MG TABLET PO (10:58)
[2023-09-11 11:30] LABS: Pathologist Review Reviewed
[2023-09-11] MEDS: Sodium Phosphate/Na Biphos 30 MMOL in 0.9% Normal Saline (250mL Bag) 250 ML 62.5 MMOL IV (17:25)
[2023-09-12] VITALS (8 sets, daily range): BP systolic 127–147; BP diastolic 60–78; PULSE 86–96; RESP 14–20; TEMP 36.7–37.1; O2SAT 91–98
[2023-09-12] MEDS: Piperacil/Tazobactam 3.375 GM in 0.9% Normal Saline (50mL MB+) 50 ML IV (05:04)
[2023-09-12] MEDS: Ipratropium/Albuterol Sulfate 3 ML AMPUL.NEB INHALATION ×3 (06:44→19:34)
--- NOTE | 2023-09-12 07:17 | PN.HOSP_ITS ---
Reason for Visit Reason for Visit: Diagnoses Elevated white blood cell count, unspecified (09/01/23) Acute appendicitis with perforation, localized peritonitis, and gangrene, without abscess (09/01/23) Unspecified acute appendicitis (09/01/23) Objective Data Objective Data Vital Signs: Vital Signs Temp Pulse Resp BP Pulse Ox O2 Del Method O2 Flow Rate 98.7 F 89 18 147/75 H 98 Room Air 2 09/12/23 04:55 09/12/23 06:45 09/12/23 06:45 09/12/23 04:55 09/12/23 06:45 09/12/23 06:45 09/08/23 07:02 Oxygen Flow Rate (L/min) 2 Oxygen Delivery Method Room Air Weight: 56.5 kg Body Mass Index (BMI) 21.4 Intake & Output: Intake and Output for Last 24 Hours 09/10/23 09/11/23 09/12/23 23:59 23:59 23:59 Intake Total 208.5 / 208.5 410 / 410 50 / 50 Output Total 500 / 500 1850 / 1850 50 / 50 Balance -291.5 / -291.5 -1440 / -1440 0 / 0 Lab / Micro Data 09/12/23 06:30 09/12/23 06:30 Labs: Laboratory Results - last 24 hr 09/11/23 06:28: WBC 16.6 H, RBC 3.65 L, Hgb 11.0 L, Hct 33.8 L, MCV 92.6, MCH 30.1, MCHC 32.5, RDW Std Deviation 43.8, RDW Coeff of Rick 13.0, Plt Count 354, MPV 10.8, Immature Gran % (Auto) 2.200 H, Neut % (Auto) 71.1 H, Lymph % (Auto) 9.7 L, [place] % (Auto) 10.6 H, Eos % (Auto) 5.1 H, Baso % (Auto) 1.3 H, Absolute Neuts (auto) 11.8 H, Absolute Lymphs (auto) 1.60, Nucleated RBC % 0, Differential Comment SCANNED, Diff Path Review Reviewed, Sodium 140, Potassium 4.0, Chloride 110 H, Carbon Dioxide 26.0, Anion Gap 4 L, BUN 15, Creatinine 0.72, Estim Creat Clear Calc 47.63, Est GFR (MDRD) Af Amer 101, Est GFR (MDRD) Non-Af 83, BUN/Creatinine Ratio 21.0 H, Glucose 95, Calcium 8.2 L, Phosphorus 1.9 L, Magnesium 2.4 09/11/23 09:41: Urine Color Yellow, Urine Clarity Sl. Cloudy, Urine pH 6.5, Ur Specific [place] 1.010, Urine Protein 15 H, Urine Glucose (UA) Normal, Urine Ketones 5 H, Urine Occult Blood 250 H, Urine Nitrite Negative, Urine Bilirubin Negative, Urine Urobilinogen Normal, Ur Leukocyte Esterase 500 H Micro: Microbiology 09/06/23 16:25 Urine, Clean Catch Urine Culture - Final Culture exhibits no growth. 09/01/23 Unknown Fluid - Peritoneal Gram Stain - Final 09/01/23 Unknown Fluid - Peritoneal Body Fluid Culture - Final Strep anginosus 09/01/23 Unknown Fluid - Peritoneal Anaerobic Culture - Final Anaerobic cocci Bacteroides fragilis 09/06/23 10:19 Stool Enteric Bacteriology - Final 09/06/23 10:42 Stool Clostridioides difficile (PCR) - Final Radiography Diagnostic Testing: Radiology Impression Abdomen/Pelvis CT 09/06/23 09:17 IMPRESSION: Status post appendectomy with a postoperative phlegmon formation at the operative site. No definite abscess is seen. A drain is catheter is seen within the operative site in the right lower quadrant. Small bilateral pleural effusions with bibasilar atelectasis. Electronically Signed: Blanco Davey MD at 12:10 EDT , ADDENDUM: 09/11/23 3521 IMPRESSION: undefined Abdomen/Pelvis CT 09/11/23 07:53 IMPRESSION: Status post ileal cystectomy with postoperative changes seen in the right lower quadrant. Postoperative changes are seen. No evidence of free fluid at this time. Small bilateral pleural effusions with bibasilar atelectasis and/or infiltrates more prominent at the right lung base. This has progressed as compared to prior study. Electronically Signed: Blanco Davey MD at 12:20 EDT , Physical Exam Narrative GENERAL: cooperative HEENT: Atraumatic; normocephalic EYES; Anicteric, Normal Conjunctiva NECK; supple, normal thyroid, RESPIRATORY: Diminished to auscultation CARDIOVASCULAR: Regular S1 S2, GI: Midline incision clean dry and intact SANKET drain with serosanguineous fluid : No Renal angle tenderness; EXTREMITIES: No edema, no clubbing, MUSCULOSKELETAL: no muscle wasting NEURO: Awake; no lateralizing signs. SKIN: No Rash PSYCH; Flat affect Assessment & Plan Assessment/Plan (1) Acute appendicitis: (2) Leukocytosis: PLAN: Plan Patient is an 83-year-old lady admitted with abdominal pain underwent laparoscopic appendectomy with drain placement on 09/01/2023 patient had complicated postop. Resulting in patient undergoing repeat surgery with laparotomy with subsequent open ileocecectomy with primary stapled [id number] functional end-to-end ileocolonic anastomosis on 09/07/2023 1. Complicated acute appendicitis ? underwent laparoscopic appendectomy with drain placement on 09/01/2023 patient had complicated postop. Resulting in patient undergoing repeat surgery with laparotomy with subsequent open ileocecectomy with primary stapled [id number] functional end-to-end ileocolonic anastomosis on 09/07/2023. Patient has return of bowel function plan is for patient to be initiated on clear liquids ? 09/11/2023;Patient seen WBC count trending up. Subsequent evaluation with CT of the abdomen and pelvis ordered by general surgery 09/12/2023; CT of the abdomen and pelvis obtained the day prior did showStatus post ileal cystectomy with postoperative changes seen in the right lower quadrant. Postoperative changes are seen. No evidence of free fluid at this time. Small bilateral pleural effusions with bibasilar atelectasis and/or infiltrates more prominent at the right lung base. This has progressed as compared to prior study. ?Patient WBC count trending down 2. History of splenic infarct ? Patient was on on aspirin at home held on admission 3. Anemia - Secondary to chronic disorder monitoring H&H and transfuse if patient becomes symptomatic or hemoglobin falls below 7 4. Hypokalemia ? Corrected per protocol 5. History of breast cancer ? Currently in remission patient is on anastrozole did continue 6. 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 History of valvular heart disease ? With noted aortic valve Abnormalities as well as nonrheumatic mitral valve insufficiency 8. Mild pulmonary hypertension ? Pulmonary toileting as well as supplemental oxygen 9. DVT prophylaxis ? Patient started on Lovenox starting 09/10/2023 10. Physical deconditioning - Requested for PT OT eval and clinical social work aide to assist with discharge planning Time spent in the patient's overall evaluation,decision-making process, review of diagnostic data, adjustment of management, discussion with other providers, nursing nursing and ancillary staff involved in patient's care documentation, 36 Minutes Charges/Coding Visit Charges Inpatient E&M: 78016 Subs Hosp L2
[2023-09-12 07:31] LABS: Absolute Lymphocyte Count 1.03 X10^3/uL (0.83-4.51); Basophil# 0.14 X10^3/uL; Eosinophil# 0.69 X10^3/uL; Hematocrit 30.7 % (37-47); Lymphocyte # 1.03 X10^3/ul (0.83-4.51); Lymphocyte % 7.5 % (19-41); Mean Corp Hgb Conc 32.6 g/dL (32-36); Mean Corpuscular Hgb 29.9 pg (27.0-32.0); Mean Corpuscular Volume 91.9 fL (81-99); Mean Platelet Vol. 10.7 fl (6.2-12.0); Monocyte# 1.61 X10^3/uL; Monocyte% 11.7 % (0-10); NRBC Flagged by Analyzer 0 % (0-5); Neutrophil % 72.9 % (47-70); POSITIVE DIFFERENTIAL YES; Platelet Count 326 K/mm3 (150-450); RBC Distribution Width CV 13.1 % (11.6-14.6); RBC Distribution Width SD 43.4 fl (35.1-43.9); Red Blood Count 3.34 M/mm3 (4.2-5.4); White Blood Count 13.7 K/mm3 (4.4-11.0)
[2023-09-12 07:34] LABS: Differential Indicated SCAN CRITERIA MET
[2023-09-12 07:56] LABS: Anion Gap 4 (5-15); BUN 10 mg/dL (7-18); BUN/Creat Ratio 16.8 RATIO (10-20); Calcium,Total 7.7 mg/dL (8.5-10.1); Chloride 109 mmol/L (98-107); EST Glomerular Filtration Rate 103 mL/min (>60); Est Glom Filt Rate - Afr Amer 124 mL/min (>60); Estimated Creatinine Clearance 47.63 ml/min; Glucose 99 mg/dL (74-106); Magnesium 1.9 mg/dL (1.6-2.6); Potassium 3.3 mmol/L (3.5-5.1); Sodium Level 141 mmol/L (136-145)
[2023-09-12 07:58] LABS: Phosphorus 2.7 mg/dL (2.5-4.9)
[2023-09-12 08:06] LABS: Smudge Cells 2+
--- NOTE | 2023-09-12 08:41 | PN.SURG_ITS ---
Subjective Subjective Patient seen and examined during AM rounds. She reports that she had some loose stools overnight but otherwise did well with her transitional diet. She does question whether or not she could get an additional advancement today. She denies any abdominal discomfort. She denies any burning with urination. She shares that she did have a breathing treatment this morning and had a fleeting bout of nausea with that but is now better. Objective Data Objective Data Vital Signs: Vital Signs Temp Pulse Resp BP Pulse Ox O2 Del Method O2 Flow Rate 98.4 F 86 16 143/63 H 91 Room Air 2 09/12/23 08:12 09/12/23 08:12 09/12/23 08:12 09/12/23 08:12 09/12/23 08:12 09/12/23 08:12 09/08/23 07:02 Oxygen Flow Rate (L/min) 2 Oxygen Delivery Method Room Air Weight: 124 lb 8.979 oz Body Mass Index (BMI) 21.4 Intake & Output: Intake and Output for Last 24 Hours 09/10/23 09/11/23 09/12/23 23:59 23:59 23:59 Intake Total 208.5 / 208.5 410 / 410 50 / 50 Output Total 500 / 500 1850 / 1850 50 / 50 Balance -291.5 / -291.5 -1440 / -1440 0 / 0 Lab / Micro Data 09/12/23 06:30 09/12/23 06:30 Labs: Laboratory Results - last 24 hr 09/11/23 06:28: Diff Path Review Reviewed 09/11/23 09:41: Urine Color Yellow, Urine Clarity Sl. Cloudy, Urine pH 6.5, Ur Specific Lantry 1.010, Urine Protein 15 H, Urine Glucose (UA) Normal, Urine Ketones 5 H, Urine Occult Blood 250 H, Urine Nitrite Negative, Urine Bilirubin Negative, Urine Urobilinogen Normal, Ur Leukocyte Esterase 500 H 09/12/23 06:30: WBC 13.7 H, RBC 3.34 L, Hgb 10.0 L, Hct 30.7 L, MCV 91.9, MCH 29.9, MCHC 32.6, RDW Std Deviation 43.4, RDW Coeff of Rick 13.1, Plt Count 326, MPV 10.7, Immature Gran % (Auto) 1.900 H, Neut % (Auto) 72.9 H, Lymph % (Auto) 7.5 L, Weber % (Auto) 11.7 H, Eos % (Auto) 5.0, Baso % (Auto) 1.0, Absolute Neuts (auto) 10.0 H, Absolute Lymphs (auto) 1.03, Nucleated RBC % 0, Diff Path Review May foll, Smudge Cells 2+, Sodium 141, Potassium 3.3 L, Chloride 109 H, Carbon Dioxide 28.0, Anion Gap 4 L, BUN 10, Creatinine 0.60, Estim Creat Clear Calc 47.63, Est GFR (MDRD) Af Amer 124, Est GFR (MDRD) Non-Af 103, BUN/Creatinine Ratio 16.8, Glucose 99, Calcium 7.7 L, Phosphorus 2.7, Magnesium 1.9 Micro: Microbiology 09/06/23 16:25 Urine, Clean Catch Urine Culture - Final Culture exhibits no growth. 09/01/23 Unknown Fluid - Peritoneal Gram Stain - Final 09/01/23 Unknown Fluid - Peritoneal Body Fluid Culture - Final Strep anginosus 09/01/23 Unknown Fluid - Peritoneal Anaerobic Culture - Final Anaerobic cocci Bacteroides fragilis 09/06/23 10:19 Stool Enteric Bacteriology - Final 09/06/23 10:42 Stool Clostridioides difficile (PCR) - Final Radiography Diagnostic Testing: Radiology Impression Abdomen/Pelvis CT 09/06/23 09:17 IMPRESSION: Status post appendectomy with a postoperative phlegmon formation at the operative site. No definite abscess is seen. A drain is catheter is seen within the operative site in the right lower quadrant. Small bilateral pleural effusions with bibasilar atelectasis. Electronically Signed: Blanco Davey MD at 12:10 EDT , ADDENDUM: 09/11/23 [id number] IMPRESSION: undefined Abdomen/Pelvis CT 09/11/23 07:53 IMPRESSION: Status post ileal cystectomy with postoperative changes seen in the right lower quadrant. Postoperative changes are seen. No evidence of free fluid at this time. Small bilateral pleural effusions with bibasilar atelectasis and/or infiltrates more prominent at the right lung base. This has progressed as compared to prior study. Electronically Signed: Blanco Davey MD at 12:20 EDT , Physical Exam Const oriented x3 and no apparent distress Resp normal respiratory effort GI GI Narrative: Exposed laparotomy incision that remains well-approximated with skin malcolm. There is slight bruising around patient's umbilicus with scab but no drainage or significant erythema. Patient's abdomen is soft and nondistended. She is nontender with palpation. The suprapubic drain contains just serous peritoneal fluid. Assessment & Plan Assessment/Plan (1) Acute perforated appendicitis: PLAN: Patient is postoperative day 11 from laparoscopic appendectomy with drain placement for complicated appendicitis and then postoperative day 5 from takeback for laparotomy with ileocecectomy. Patient once again appears to be doing well clinically with minimal pain complaints. Her white count is dec reased today after CT imaging yesterday was reassuring of no intra-abdominal cause for her white count and suggested possible consolidation of the right lung base. Patient was encouraged to improve her pulmonary toilet out of that and seems to be stable from a respiratory standpoint this morning. Given her tolerance of a diet and need for additional nutrition I will advance her to a regular diet. Her drain which has remained serous for the last several days, was discontinued at bedside today. I will also plan to discontinue her antibiotic today considering her fully treated for her prior infection. Appreciate medical assistance for optimization of other comorbidities. Dispo: Anticipate discharge tomorrow Siddhartha Ulloa MD General Surgery Endocrine Surgery Pager: [facility] [address] [place] [address], [facility], [address] [place] [address] Office: [phone] Charges/Coding Visit Charges Inpatient E&M: 29163 Subs Hosp L2
[2023-09-12] MEDS: Aspirin 81 MG TAB.CHEW PO (08:50)
[2023-09-12] MEDS: Potassium Chloride Oral Tablet 20 MEQ PO ×2 (08:50→16:04)
[2023-09-12] MEDS: Anastrozole 1 MG TABLET PO (08:50)
[2023-09-12] MEDS: Enoxaparin 40 MG/0.4 ML Syringe SC (08:50)
--- NOTE | 2023-09-12 14:21 | CASEMGMT ---
RN CM NOTE: 6 Clicks continue to be 24, indicating pt safe to discharge home alone. Natalio STRATTONN RN CM
[2023-09-12 14:31] LABS: Pathologist Review Reviewed
--- NOTE | 2023-09-12 16:08 | NURSING ---
All documentation by student nurse, Kriss Grimes, reviewed by supervisor public health nursing, Rosa Elena STRATTONN, RN.
[2023-09-12] MEDS: Menthol/Lanolin/Calamine/Znox 113 GM Tube 1 APPLIC TOPICAL (22:50)
[2023-09-13 05:00] VITALS: PULSE 85; RESP 16; O2SAT 96
[2023-09-13 05:43] VITALS: BP 148/79; PULSE 85; RESP 16; TEMP 36.8; O2SAT 96
[2023-09-13 06:59] LABS: Absolute Lymphocyte Count 1.22 X10^3/uL (0.83-4.51); Absolute Neutrophil Count 8.6 X10^3/uL (2.0-7.7); Basophil# 0.13 X10^3/uL; Eosinophil# 0.69 X10^3/uL; Eosinophils% 5.5 % (0-5); Hematocrit 31.7 % (37-47); Hemoglobin 10.2 g/dL (12.0-15.0); Lymphocyte # 1.22 X10^3/ul (0.83-4.51); Lymphocyte % 9.8 % (19-41); Mean Corp Hgb Conc 32.2 g/dL (32-36); Mean Corpuscular Hgb 29.8 pg (27.0-32.0); Mean Corpuscular Volume 92.7 fL (81-99); Mean Platelet Vol. 11.2 fl (6.2-12.0); Monocyte% 12.8 % (0-10); NRBC Flagged by Analyzer 0 % (0-5); Neutrophil % 69.1 % (47-70); POSITIVE COUNT YES; POSITIVE DIFFERENTIAL YES; RBC Distribution Width CV 13.2 % (11.6-14.6); RBC Distribution Width SD 44.7 fl (35.1-43.9); Red Blood Count 3.42 M/mm3 (4.2-5.4); White Blood Count 12.5 K/mm3 (4.4-11.0)
[2023-09-13 07:10] LABS: Differential Indicated SCAN CRITERIA MET
[2023-09-13 07:33] LABS: Anion Gap 0 (5-15); BUN 9 mg/dL (7-18); BUN/Creat Ratio 15.2 RATIO (10-20); Calcium,Total 7.8 mg/dL (8.5-10.1); Chloride 111 mmol/L (98-107); Creatinine, Serum 0.59 mg/dL (0.55-1.02); EST Glomerular Filtration Rate 103 mL/min (>60); Est Glom Filt Rate - Afr Amer 125 mL/min (>60); Estimated Creatinine Clearance 47.63 ml/min; Glucose 105 mg/dL (74-106); Potassium 3.9 mmol/L (3.5-5.1); Sodium Level 140 mmol/L (136-145)
[2023-09-13 07:40] VITALS: BP 145/83; PULSE 89; RESP 18; TEMP 36.7; O2SAT 94
[2023-09-13] MEDS: Anastrozole 1 MG TABLET PO (07:42)
[2023-09-13] MEDS: Enoxaparin 40 MG/0.4 ML Syringe SC (07:42)
[2023-09-13] MEDS: Aspirin 81 MG TAB.CHEW PO (07:42)
[2023-09-13] MEDS: Potassium Chloride Oral Tablet 20 MEQ PO (07:42)
--- NOTE | 2023-09-13 07:46 | PCM.PN.HOSP ---
Reason for Visit Reason for Visit: Diagnoses Elevated white blood cell count, unspecified (09/01/23) Acute appendicitis with perforation, localized peritonitis, and gangrene, without abscess (09/01/23) Unspecified acute appendicitis (09/01/23) Objective Data Objective Data Vital Signs: Vital Signs Temp Pulse Resp BP Pulse Ox O2 Del Method O2 Flow Rate 98.3 F 85 16 148/79 H 96 Room Air 2 09/13/23 05:43 09/13/23 05:43 09/13/23 05:43 09/13/23 05:43 09/13/23 05:43 09/13/23 05:43 09/08/23 07:02 Oxygen Flow Rate (L/min) 2 Oxygen Delivery Method Room Air Weight: 56.5 kg Body Mass Index (BMI) 21.4 Intake & Output: Intake and Output for Last 24 Hours 09/11/23 09/12/23 09/13/23 23:59 23:59 23:59 Intake Total 410 / 410 220 / 220 Output Total 1850 / 1850 120 / 120 Balance -1440 / -1440 100 / 100 Lab / Micro Data 09/13/23 06:42 09/13/23 06:42 Labs: Laboratory Results - last 24 hr 09/12/23 06:30: Diff Path Review Reviewed, Smudge Cells 2+, Sodium 141, Potassium 3.3 L, Chloride 109 H, Carbon Dioxide 28.0, Anion Gap 4 L, BUN 10, Creatinine 0.60, Estim Creat Clear Calc 47.63, Est GFR (MDRD) Af Amer 124, Est GFR (MDRD) Non-Af 103, BUN/Creatinine Ratio 16.8, Glucose 99, Calcium 7.7 L, Phosphorus 2.7, Magnesium 1.9 09/13/23 06:42: WBC 12.5 H, RBC 3.42 L, Hgb 10.2 L, Hct 31.7 L, MCV 92.7, MCH 29.8, MCHC 32.2, RDW Std Deviation 44.7 H, RDW Coeff of Rick 13.2, Plt Count 276, MPV 11.2, Immature Gran % (Auto) 1.800 H, Neut % (Auto) 69.1, Lymph % (Auto) 9.8 L, Arroyo % (Auto) 12.8 H, Eos % (Auto) 5.5 H, Baso % (Auto) 1.0, Absolute Neuts (auto) 8.6 H, Absolute Lymphs (auto) 1.22, Nucleated RBC % 0, Sodium 140, Potassium 3.9, Chloride 111 H, Carbon Dioxide 29.0, Anion Gap 0 L, BUN 9, Creatinine 0.59, Estim Creat Clear Calc 47.63, Est GFR (MDRD) Af Amer 125, Est GFR (MDRD) Non-Af 103, BUN/Creatinine Ratio 15.2, Glucose 105, Calcium 7.8 L Micro: Microbiology 09/06/23 16:25 Urine, Clean Catch Urine Culture - Final Culture exhibits no growth. 09/01/23 Unknown Fluid - Peritoneal Gram Stain - Final 09/01/23 Unknown Fluid - Peritoneal Body Fluid Culture - Final Strep anginosus 09/01/23 Unknown Fluid - Peritoneal Anaerobic Culture - Final Anaerobic cocci Bacteroides fragilis 09/06/23 10:19 Stool Enteric Bacteriology - Final 09/06/23 10:42 Stool Clostridioides difficile (PCR) - Final Physical Exam Narrative GENERAL: cooperative HEENT: Atraumatic; normocephalic EYES; Anicteric, Normal Conjunctiva NECK; supple, normal thyroid, RESPIRATORY: Diminished to auscultation CARDIOVASCULAR: Regular S1 S2, GI: Midline incision clean dry and intact SANKET drain with serosanguineous fluid : No Renal angle tenderness; EXTREMITIES: No edema, no clubbing, MUSCULOSKELETAL: no muscle wasting NEURO: Awake; no lateralizing signs. SKIN: No Rash PSYCH; Flat affect Assessment & Plan Assessment/Plan (1) Acute appendicitis: (2) Leukocytosis: PLAN: Plan Patient is an 83-year-old lady admitted with abdominal pain underwent laparoscopic appendectomy with drain placement on 09/01/2023 patient had complicated postop. Resulting in patient undergoing repeat surgery with laparotomy with subsequent open ileocecectomy with primary stapled [id number] functional end-to-end ileocolonic anastomosis on 09/07/2023 1. Complicated acute appendicitis ? underwent laparoscopic appendectomy with drain placement on 09/01/2023 patient had complicated postop. Resulting in patient undergoing repeat surgery with laparotomy with subsequent open ileocecectomy with primary stapled [id number] functional end-to-end ileocolonic anastomosis on 09/07/2023. Patient has return of bowel function plan is for patient to be initiated on clear liquids ? 09/11/2023;Patient seen WBC count trending up. Subsequent evaluation with CT of the abdomen and pelvis ordered by general surgery 09/12/2023; CT of the abdomen and pelvis obtained the day prior did showStatus post ileal cystectomy with postoperative changes seen in the right lower quadrant. Postoperative changes are seen. No evidence of free fluid at this time. Small bilateral pleural effusions with bibasilar atelectasis and/or infiltrates more prominent at the right lung base. This has progressed as compared to prior study. ?Patient WBC count trending down 2. History of splenic infarct ? Patient was on on aspirin at home held on admission 3. Anemia - Secondary to chronic disorder monitoring H&H and transfuse if patient becomes symptomatic or hemoglobin falls below 7 4. Hypokalemia ? Corrected per protocol 5. History of breast cancer ? Currently in remission patient is on anastrozole did continue 6. 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 History of valvular heart disease ? With noted aortic valve Abnormalities as well as nonrheumatic mitral valve insufficiency 8. Mild pulmonary hypertension ? Pulmonary toileting as well as supplemental oxygen 9. DVT prophylaxis ? Patient started on Lovenox starting 09/10/2023 10. Physical deconditioning - Requested for PT OT eval and social media sr strategy manager to assist with discharge planning Time spent in the patient's overall evaluation,decision-making process, review of diagnostic data, adjustment of management, discussion with other providers, nursing nursing and ancillary staff involved in patient's care documentation, 36 Minutes
[2023-09-13 07:50] VITALS: PULSE 66; RESP 18; O2SAT 95
--- NOTE | 2023-09-13 08:19 | PCM.DC.SUM ---
Providers Date of Admission: 09/01/23 Date of Discharge: 09/13/23 Primary Care Physician: Dr. Vimal Merida MD Consultations 09/08/23 09:14 Consult: Hospitalist Routine Consulting Provider: Mele Oliveros Reason for Consult: med management EMERGENT Consult: No MD Notified: Yes Date Notified: 09/08/23 Time Notified: 09:15 Method of Notification: Text Reason For Visit: APPENDICITIS Diagnosis Discharge Diagnosis (1) Acute appendicitis: Status: Acute Code(s): K35.80 - Unspecified acute appendicitis (2) Leukocytosis: Status: Acute Code(s): D72.829 - Elevated white blood cell count, unspecified Medications at Discharge Home Medications multivitamin 1 ea PO DAILY supplement 04/06/16 aspirin 81 mg chewable tablet 81 mg PO DAILY@0800 ##30 04/08/16 anastrozole 1 mg tablet 1 mg PO DAILY 03/27/22 acetaminophen 500 mg tablet 500 mg PO Q6H PRN PRN Pain Score 1-10 #0 tabs 09/13/23 Hospital Course Summary of Care Provided Minutes Spent on Discharge: 36 Hospital Course: Patient is an 83-year-old lady admitted with abdominal pain underwent laparoscopic appendectomy with drain placement on 09/01/2023 patient had complicated postop. Resulting in patient undergoing repeat surgery with laparotomy with subsequent open ileocecectomy with primary stapled [id number] functional end-to-end ileocolonic anastomosis on 09/07/2023 1. Complicated acute appendicitis ? underwent laparoscopic appendectomy with drain placement on 09/01/2023 patient had complicated postop. Resulting in patient undergoing repeat surgery with laparotomy with subsequent open ileocecectomy with primary stapled [id number] functional end-to-end ileocolonic anastomosis on 09/07/2023. Patient has return of bowel function plan is for patient to be initiated on clear liquids ? 09/11/2023;Patient seen WBC count trending up. Subsequent evaluation with CT of the abdomen and pelvis ordered by general surgery 09/12/2023; CT of the abdomen and pelvis obtained the day prior did showStatus post ileal cystectomy with postoperative changes seen in the right lower quadrant. Postoperative changes are seen. No evidence of free fluid at this time. Small bilateral pleural effusions with bibasilar atelectasis and/or infiltrates more prominent at the right lung base. This has progressed as compared to prior study. ?Patient WBC count trending down ? 09/12/2022; patient stable for discharge 2. History of splenic infarct ? Patient was on on aspirin at home held on admission 3. Anemia - Secondary to chronic disorder monitoring H&H and transfuse if patient becomes symptomatic or hemoglobin falls below 7 4. Hypokalemia ? Corrected per protocol 5. History of breast cancer ? Currently in remission patient is on anastrozole did continue 6. 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 History of valvular heart disease ? With noted aortic valve Abnormalities as well as nonrheumatic mitral valve insufficiency 8. Mild pulmonary hypertension ? Pulmonary toileting as well as supplemental oxygen 9. DVT prophylaxis ? Patient started on Lovenox starting 09/10/2023 10. Physical deconditioning - Requested for PT OT eval and social service technician to assist with discharge planning Time spent in the patient's overall evaluation,decision-making process, review of diagnostic data, adjustment of management, discussion with other providers, nursing nursing and ancillary staff involved in patient's care documentation, 36 Minutes Physical Exam Narrative GENERAL: cooperative HEENT: Atraumatic; normocephalic EYES; Anicteric, Normal Conjunctiva NECK; supple, normal thyroid, RESPIRATORY: Diminished to auscultation CARDIOVASCULAR: Regular S1 S2, GI: soft, normoactive bowel sounds, : No Renal angle tenderness; EXTREMITIES: No edema, no clubbing, MUSCULOSKELETAL: no muscle wasting NEURO: Awake; no lateralizing signs. SKIN: No Rash PSYCH; Flat affect Weight / BMI Weight Weight: 56.5 kg Body Mass Index (BMI) 21.4 ABG / Lab / Microbiology Data 09/13/23 06:42 09/13/23 06:42 Laboratory: Laboratory Results - last 24 hr 09/12/23 06:30: Diff Path Review Reviewed 09/13/23 06:42: WBC 12.5 H, RBC 3.42 L, Hgb 10.2 L, Hct 31.7 L, MCV 92.7, MCH 29.8, MCHC 32.2, RDW Std Deviation 44.7 H, RDW Coeff of Rick 13.2, Plt Count 276, MPV 11.2, Immature Gran % (Auto) 1.800 H, Neut % (Auto) 69.1, Lymph % (Auto) 9.8 L, Moffat % (Auto) 12.8 H, Eos % (Auto) 5.5 H, Baso % (Auto) 1.0, Absolute Neuts (auto) 8.6 H, Absolute Lymphs (auto) 1.22, Nucleated RBC % 0, Sodium 140, Potassium 3.9, Chloride 111 H, Carbon Dioxide 29.0, Anion Gap 0 L, BUN 9, Creatinine 0.59, Estim Creat Clear Calc 47.63, Est GFR (MDRD) Af Amer 125, Est GFR (MDRD) Non-Af 103, BUN/Creatinine Ratio 15.2, Glucose 105, Calcium 7.8 L Microbiology: Microbiology 09/06/23 16:25 Urine, Clean Catch Urine Culture - Final Culture exhibits no growth. 09/01/23 Unknown Fluid - Peritoneal Gram Stain - Final 09/01/23 Unknown Fluid - Peritoneal Body Fluid Culture - Final Strep anginosus 09/01/23 Unknown Fluid - Peritoneal Anaerobic Culture - Final Anaerobic cocci Bacteroides fragilis 09/06/23 10:19 Stool Enteric Bacteriology - Final 09/06/23 10:42 Stool Clostridioides difficile (PCR) - Final D/C Instructions Discharge Diet: No restrictions Discharge Activity: Return to Normal Activity Call your doctor if you observe: Fever of 101 or Higher, Shortness of breath, Fainting spells and Chest pain Meaningful Use Info Meaningful Use Meaningful Use Diagnoses (Choose all that apply): None applicable Ischemic Stroke Statin Dosing Therapy Reference: STATIN DOSE THERAPY REFERENCE: * Patients > 75 years receive moderate or high dose statin therapy. * Patients 75 years or YOUNGER should receive HIGH intensity statin dose unless contraindicated. You will be required to document reason for non-treatment if statin daily dose does not meet guidelines. HIGH DOSE STATIN THERAPY DAILY Atorvastatin > than or = to 40 mg Rosuvastatin > than or = to 20 mg Amlodipine + Atorvastatin > than or = to 2.5/40 mg Ezetimibe + Simvastatin 10/80 mg Simvastatin 80mg Discharge Plan Admission Admit Date/Time: 09/01/23 11:54 Primary Reason for Your Visit: Acute perforated appendicitis Attending Provider: Anibal Menjivar Primary Care Provider: Vimal Merida Consulting Providers: Siddhartha Ulloa; Mele Oliveros Instructions Additional Instructions / Restrictions: Appendectomy Diet ? Start light with soups and soft bland foods. You may advance diet as tolerated. Activity ? You may drive ? I encourage walking. You may go up steps, one at a time. ? Do not swim or use hot tubs for 2 weeks. ? For comfort, you may use warm compresses or ice as needed for 15-20 minutes at a time. Lifting ? You may lift up to 15 pounds for 4 weeks. Dressings/Incision ? You may shower OVER your plastic dressings ? Do NOT tub bathe for 1 week ? Leave gauze dressing in place for 1 day over top of the SANKET drain site. ? You may leave malcolm open to air. Medications ? Anesthesia used during surgery and pain medications may cause constipation. I recommend initiating on the day of surgery a fiber supplement like, Metamucil, Citrucel, FiberCon, Benefiber, or a generic form of these medications. 1 heaping tablespoon in water daily. You may continue to utilize any bowel regimen or oral laxatives that you routinely take. ? As long as you are not intolerant to Tylenol, acetaminophen, ibuprofen, Motrin, Advil, Aleve, or similar medications, I would recommend transitioning to these [id number] medicines as soon as possible instead of continued use of narcotic pain medication. Follow up ? You should call [facility] soon after surgery, at [phone] option 1 to make a follow up appointment for 7-10 days after your surgery. Discharge Orders/Prescriptions Prescriptions: New acetaminophen 500 mg Tablet 500 mg PO Q6H PRN PRN (Reason: Pain Score 1-10) Qty: 0 0RF Continued anastrozole 1 mg tablet 1 mg PO DAILY multivitamin 1 EACH tablet 1 ea PO DAILY Patient Comments: multivitamin supplement aspirin 81 MG tablet,chewable 81 mg PO DAILY@0800 Qty: 30 0RF Referrals / Follow Up: Siddhartha Ulloa MD [Med Staff - Active Staff] - Within 2 Weeks Vimal Merida MD [Primary Care Provider] - Within 2 Weeks Disposition Disposition (needs filled in before D/C Order can be placed): Home, Self Care Charges/Coding Visit Charges Inpatient E&M: 71068 Disch Hosp >30min
[2023-09-13 08:21] LABS: Differential Comment SCANNED; Platelet Estimate ADEQUATE (ADEQ)
--- NOTE | 2023-09-13 08:37 | PCM.PN.SRG ---
Subjective Subjective Patient is an 83 y/o F I am following in conjunction with Dr. Ulloa. Patient notes she is continuing to have loose stools although they are slowing down. She denies nausea, vomiting, fever. She is tolerating her current diet. She denies abdominal pain/discomfort. Objective Data Objective Data Vital Signs: Vital Signs Temp Pulse Resp BP Pulse Ox O2 Del Method O2 Flow Rate 98.1 F 89 18 145/83 H 94 Room Air 2 09/13/23 07:40 09/13/23 07:40 09/13/23 07:40 09/13/23 07:40 09/13/23 07:40 09/13/23 07:50 09/08/23 07:02 Oxygen Flow Rate (L/min) 2 Oxygen Delivery Method Room Air Weight: 124 lb 8.979 oz Body Mass Index (BMI) 21.4 Intake & Output: Intake and Output for Last 24 Hours 09/11/23 09/12/23 09/13/23 23:59 23:59 23:59 Intake Total 410 / 410 220 / 220 Output Total 1850 / 1850 120 / 120 Balance -1440 / -1440 100 / 100 Lab / Micro Data 09/13/23 06:42 09/13/23 06:42 Labs: Laboratory Results - last 24 hr 09/12/23 06:30: Diff Path Review Reviewed 09/13/23 06:42: WBC 12.5 H, RBC 3.42 L, Hgb 10.2 L, Hct 31.7 L, MCV 92.7, MCH 29.8, MCHC 32.2, RDW Std Deviation 44.7 H, RDW Coeff of Rick 13.2, Plt Count , MPV 11.2, Immature Gran % (Auto) 1.800 H, Neut % (Auto) 69.1, Lymph % (Auto) 9.8 L, [place]inole % (Auto) 12.8 H, Eos % (Auto) 5.5 H, Baso % (Auto) 1.0, Absolute Neuts (auto) 8.6 H, Absolute Lymphs (auto) 1.22, Nucleated RBC % 0, Differential Comment SCANNED, Diff Path Review May , Platelet Estimate ADEQUATE, Sodium 140, Potassium 3.9, Chloride 111 H, Carbon Dioxide 29.0, Anion Gap 0 L, BUN 9, Creatinine 0.59, Estim Creat Clear Calc 47.63, Est GFR (MDRD) Af Amer 125, Est GFR (MDRD) Non-Af 103, BUN/Creatinine Ratio 15.2, Glucose 105, Calcium 7.8 L Micro: Microbiology 09/06/23 16:25 Urine, Clean Catch Urine Culture - Final Culture exhibits no growth. 09/01/23 Unknown Fluid - Peritoneal Gram Stain - Final 09/01/23 Unknown Fluid - Peritoneal Body Fluid Culture - Final Strep anginosus 09/01/23 Unknown Fluid - Peritoneal Anaerobic Culture - Final Anaerobic cocci Bacteroides fragilis 09/06/23 10:19 Stool Enteric Bacteriology - Final 09/06/23 10:42 Stool Clostridioides difficile (PCR) - Final Physical Exam Const alert, oriented x3 and no apparent distress GI GI Narrative: Abdomen- soft, nontender. SANKET dressing in place. Fredi intact. No erythema or infection noted. No incisional drainage noted. Positive bowel sounds. Assessment & Plan Assessment/Plan (1) Acute perforated appendicitis: PLAN: I am following this patient in conjunction with Dr. Ulloa. He has independently evaluated this patient. Patient is postoperative day 11 from laparoscopic appendectomy with drain placement for complicated appendicitis and then postoperative day 5 from takeback for laparotomy with ileocecectomy Antibiotics have been discontinued for approximately 24 hours Lab work has been reviewed. WBC has decreased, neut are normalized. Chemistry is unremarkable. Loose stools are slowing down per patient. With the discontinuation of the antibiotics, hopefully the loose stools will improve. May recommend including a probiotic. Patient continues to tolerate her appetite. Recommend no lifting greater than 15 pounds for 4 weeks Follow-up in 1 week for post-op visit and staple removal Patient is ready for discharge Discharge instructions were reviewed with the patient and included in the discharge paperwork Charges/Coding Visit Charges Inpatient E&M: 39238 Subs Hosp L1 (no charge; post-op)
--- NOTE | 2023-09-13 09:36 | CASEMGMT ---
RN CM into pt room, pt sitting up in chair in no distress. Pt states she feels well and is ready to dc home. She denies need for any homegoing services. Pt has her to assist her. Pt state she does need transportation home and is asking about the hospital van. TC to [facility] transportation, they can transport home at 2pm. Pt and nurse aware to be at main entrance at 2pm.
[2023-09-13 09:51] LABS: Pathologist Review Reviewed
--- NOTE | 2023-09-13 11:48 | PHA.DC.MC.R ---
Pharmacy [facility] has performed discharge medication reconciliation and counseling for this patient. The patient's discharge medication list was reviewed for discrepancies and discrepancies were resolved. The patient was counseled on the following discharge medications and changes in medications for homegoing were reviewed. 1. FERROUS SULFATE The Reason for Use, instructions for use, and potential side effects were reviewed for all new medications. The patient's questions regarding all of their medications were answered. The patient demonstrated some understanding but would benefit from further education and reinforcement. Medications at Discharge Home Medications multivitamin 1 ea PO DAILY supplement 04/06/16 aspirin 81 mg chewable tablet 81 mg PO DAILY@0800 ##30 04/08/16 anastrozole 1 mg tablet 1 mg PO DAILY 03/27/22 acetaminophen 500 mg tablet 500 mg PO Q6H PRN PRN Pain Score 1-10 #0 tabs 09/13/23
[2023-09-13 12:15] VITALS: BP 128/73; PULSE 97; RESP 16; TEMP 36.5; O2SAT 97
== END 2023-09-13 13:53 | disposition home or self-care (01) | DRG 331 ==
LOC: ED 06:57 → SDC 07:17 → ACINP 07:18 → SDC 16:22 → MS3 16:23
PROVIDERS: Internal Medicine; Physician Assistant; Surgery; Admitting Provider Surgery; Emergency Provider Emergency Medicine; PCP Family Medicine; Visit Provider Internal Medicine
PROC: 0DTJ4ZZ Resection of Appendix, Percutaneous Endoscopic Approach (ICD-10-PCS; CPT 44970; principal; 2023-09-01 09:00)
PROC: 0DTH0ZZ Resection of Cecum, Open Approach (ICD-10-PCS; principal; 2023-09-07 15:10)
DX: K35.33 Acute appendicitis with perforation, localized peritonitis, and gangrene, with abscess (principal); D63.8 Anemia in other chronic diseases classified elsewhere; I27.21 Secondary pulmonary arterial hypertension; E87.6 Hypokalemia; I45.10 Unspecified right bundle-branch block; Z79.82 Long term (current) use of aspirin; Z79.811 Long term (current) use of aromatase inhibitors; K66.0 Peritoneal adhesions (postprocedural) (postinfection); Z85.3 Personal history of malignant neoplasm of breast; I49.1 Atrial premature depolarization; Z86.79 Personal history of other diseases of the circulatory system; Z87.19 Personal history of other diseases of the digestive system; R33.0 Drug induced retention of urine; T41.45XA Adverse effect of unspecified anesthetic, initial encounter; Y92.239 Unspecified place in hospital as the place of occurrence of the external cause; B95.4 Other streptococcus as the cause of diseases classified elsewhere; B96.6 Bacteroides fragilis [B. fragilis] as the cause of diseases classified elsewhere
CPT/HCPCS: 36415; 71045; 74177; 80048; 81001; 81002; 83735; 84100; 85025; 87070; 87075; 87077; 87086; 87186; 87205; 87493; 87506; 88108; 88304; 88305; 88307; 88311; 88313; 93005; 94640; 94668; 99252; 99283; J7030; J7040; J7050; J7120; Q9967; A4216; G0463; J2405; J3490

== ENCOUNTER → 2023-09-20 | Outpatient (CLI) | payer MEDICARE, BC, SELFPAY ==
[2023-09-20 15:03] LABS: Absolute Neutrophil Count 7.5 X10^3/uL (2.0-7.7); Basophil# 0.14 X10^3/uL; Basophil% 1.1 % (0-1); Eosinophil# 1.05 X10^3/uL; Eosinophils% 8.4 % (0-5); Hematocrit 37.1 % (37-47); Hemoglobin 11.7 g/dL (12.0-15.0); Lymphocyte % 14.3 % (19-41); Mean Corp Hgb Conc 31.5 g/dL (32-36); Mean Corpuscular Volume 95.1 fL (81-99); Mean Platelet Vol. 10.6 fl (6.2-12.0); Monocyte# 1.95 X10^3/uL; Monocyte% 15.5 % (0-10); NRBC Flagged by Analyzer 0 % (0-5); Neutrophil # 7.49 X10^3/uL (2.7-7.7); Neutrophil % 59.7 % (47-70); POSITIVE DIFFERENTIAL YES; Platelet Count 424 K/mm3 (150-450); RBC Distribution Width CV 13.4 % (11.6-14.6); RBC Distribution Width SD 47.3 fl (35.1-43.9); White Blood Count 12.6 K/mm3 (4.4-11.0)
[2023-09-20 15:18] LABS: Differential Indicated SCAN CRITERIA MET
[2023-09-21 13:43] LABS: Pathologist Review Reviewed
== END | disposition home or self-care (01) ==
LOC: PAVLAB 14:44
PROVIDERS: PCP Family Medicine; Referring Provider Physician Assistant; Visit Provider Physician Assistant
DX: D72.829 Elevated white blood cell count, unspecified (principal)
CPT/HCPCS: 36415; 85025